=== PATIENT | female | born 1985 | race American Indian/Alaskan Native ===

== ENCOUNTER 2017-07-07 10:07 | Emergency (ER) | payer BC, OTHER ==
--- NOTE | 2017-07-07 10:43 | Emergency Department Report ---
Stated Complaint: CHEST PAIN/BODY PAIN/RT EAR PAIN Time Seen by Provider: 07/07/17 10:39 - HPI History of Present Illness: PT c/o body pain x 2 weeks PT reports chest pain and hearing throbbing in her ears PT states her symptoms worsened after she had SZ - ROS Review of Systems: + intermittent chest pain + recent URI - dysuria + fever on Friday - Exam Physical Exam: obese female, no acute resp distress gcs 15 MSE screening note: Focused history and physical exam performed. Due to findings the following was ordered: ekg, xr, labs ED Disposition for MSE Condition: Stable
[2017-07-07 11:05] LABS: Basophils % (Auto) 1.4 % (0.0-1.8); Eosinophils % (Auto) 3.5 % (0.0-4.3); Hematocrit 38.1 % (30.3-42.9); Hemoglobin 12.1 gm/dl (10.1-14.3); Mean Corpuscular HGB Conc 32 % (30-34); Mean Corpuscular Hemoglobin 26 pg (28-32); Mean Corpuscular Volume 83 fl (79-97); Platelet Count 249 K/mm3 (140-440); Red Blood Count 4.61 M/mm3 (3.65-5.03); Red Cell Distribution Width 15.5 % (13.2-15.2); White Blood Count 5.6 K/mm3 (4.5-11.0)
[2017-07-07 11:15] LABS: INR 0.98 (0.87-1.13); Partial Thromboplastin Time 30.4 Sec. (24.2-36.6)
[2017-07-07 11:23] LABS: Alanine Aminotransferase 13 units/L (7-56); Albumin 3.4 g/dL (3.9-5); Albumin/Globulin Ratio 0.9 %; Alkaline Phosphatase 82 units/L (35-129); Anion Gap 14 mmol/L; Blood Urea Nitrogen 9 mg/dL (7-17); Calcium 8.8 mg/dL (8.4-10.2); Carbon Dioxide 26 mmol/L (22-30); Chloride 100.3 mmol/L (98-107); Glucose 95 mg/dL (65-100); Potassium 4.2 mmol/L (3.6-5.0); Sodium 136 mmol/L (137-145); Total Protein 7.4 g/dL (6.3-8.2)
[2017-07-07 11:25] LABS: Bilirubin,Urine NEG (Negative); Blood,Urine NEG (Negative); Ketones,Urine NEG (Negative); Leukocyte Esterase,Urine NEG (Negative); Nitrite,Urine NEG (Negative); Protein,Urine <15 mg/dL mg/dL (Negative); Urobilinogen,Urine < 2.0 mg/dL (<2.0)
--- NOTE | 2017-07-07 12:17 | XRay Report ---
ROUTINE CHEST, TWO VIEWS: Chest pain. PA and lateral views demonstrate the heart and mediastinal contour to be of normal size and shape. The lungs are clear but hypoventilated and the soft tissues and bony structures are normal. No interval change compared to August 31, 2015. IMPRESSION: Normal study.
--- NOTE | 2017-07-07 12:18 | Emergency Department Report ---
HPI - General Chief Complaint: Pain General Time Seen by Provider: 07/07/17 10:39 - HPI HPI: Room 24 The patient is a 32-year-old female presented with a chief complaint of " feeling sick." The patient states for approximately 2 weeks she has had pain/ thump and in both ears chest congestion and rhinorrhea. Patient states she was found to be febrile 101F earlier in the week. Patient denies a cough Location: [see above] Duration: 2 weeks Quality: Congestion Severity: Moderate Modifying factors: [see above] Context: [see above] Mode of transportation: unknown ED Past Medical Hx - Past Medical History Hx Headaches / Migraines: Yes Hx Seizures: Yes (episode of Yao's paralysis) Additional medical history: OBESITY - Surgical History Past Surgical History?: No - Family History Family history: no significant - Social History Smoking Status: Never Smoker Substance Use Type: None (denies illicit drug use), Alcohol (occasional) - Medications Home Medications: Home Medications Medication Instructions Recorded Confirmed Last Taken Type carBAMazepine [TEGretol] 200 mg PO Q8HR 12/06/14 08/31/15 08/30/15 21:00 History levETIRAcetam [Keppra XR TAB] 500 mg PO BID 08/05/15 08/31/15 08/30/15 21:00 History Butalb/Acetamin/Caff 50-325-40 1 tab PO Q6HR PRN 08/31/15 08/31/15 Unknown History [Fioricet] Ibuprofen [Motrin] 600 mg PO Q6HR PRN #20 tablet 08/31/15 Unknown Rx Azithromycin [Zithromax Z-KEVIN] 0 mg PO DAILY #6 tab 07/07/17 Unknown Rx Butalb/Acetamin/Caff 50-325-40 1 tab PO Q8HR PRN #10 tablet 07/07/17 Unknown Rx [Fioricet] ED Review of Systems ROS: Stated complaint: CHEST PAIN/BODY PAIN/RT EAR PAIN Other details as noted in HPI Comment: All other systems reviewed and negative Constitutional: fever Eyes: denies: eye pain, eye discharge, vision change ENT: ear pain, congestion Respiratory: denies: cough, shortness of breath, wheezing Cardiovascular: denies: chest pain, palpitations Endocrine: no symptoms reported Gastrointestinal: denies: abdominal pain, nausea, diarrhea Genitourinary: denies: urgency, dysuria, discharge Musculoskeletal: denies: back pain, joint swelling, arthralgia Skin: denies: rash, lesions Neurological: denies: weakness, paresthesias Psychiatric: denies: anxiety, depression Hematological/Lymphatic: denies: easy bleeding, easy bruising Physical Exam - Physical Exam Vital Signs: Vital Signs 07/07/17 07/07/17 07/07/17 10:43 11:52 11:54 Temperature 98.6 F Pulse Rate 78 79 Respiratory 18 12 Rate Blood Pressure 127/76 116/71 O2 Sat by Pulse 100 97 98 Oximetry 07/07/17 12:00 Temperature Pulse Rate Respiratory 18 Rate Blood Pressure O2 Sat by Pulse 100 Oximetry Physical Exam: GENERAL: The patient is well-developed well-nourished female lying on stretcher not appearing to be in acute distress. [] HEENT: Normocephalic. Atraumatic. Extraocular motions are intact. Patient has moist mucous membranes. There is tenderness to percussion of the left maxillary sinus NECK: Supple. Trachea midline CHEST/LUNGS: Clear to auscultation. There is no respiratory distress noted. HEART/CARDIOVASCULAR: Regular. There is no tachycardia. There is no gallop rub or murmur. ABDOMEN: Abdomen is soft, nontender. Patient has normal bowel sounds. There is no abdominal distention. SKIN: There is no rash. There is no edema. There is no diaphoresis. NEURO: The patient is awake, alert, and oriented. The patient is cooperative. The patient has normal speech MUSCULOSKELETAL: There is no evidence of acute injury. ED Course Vital Signs 07/07/17 07/07/17 07/07/17 10:43 11:52 11:54 Temperature 98.6 F Pulse Rate 78 79 Respiratory 18 12 Rate Blood Pressure 127/76 116/71 O2 Sat by Pulse 100 97 98 Oximetry 07/07/17 12:00 Temperature Pulse Rate Respiratory 18 Rate Blood Pressure O2 Sat by Pulse 100 Oximetry ED Medical Decision Making - Lab Data Result diagrams: 07/07/17 10:48 07/07/17 10:48 Laboratory Tests 07/07/17 07/07/17 07/07/17 10:48 10:48 10:48 WBC 5.6 RBC 4.61 Hgb 12.1 Hct 38.1 MCV 83 MCH 26 L MCHC 32 RDW 15.5 H Plt Count 249 Lymph % (Auto) 24.7 Gray % (Auto) 10.4 H Eos % (Auto) 3.5 Baso % (Auto) 1.4 Lymph # 1.4 Gray # 0.6 Eos # 0.2 Baso # 0.1 Seg Neutrophils % 60.0 Seg Neutrophils # 3.3 PT 13.5 INR 0.98 APTT 30.4 Sodium 136 L Potassium 4.2 Chloride 100.3 Carbon Dioxide 26 Anion Gap 14 BUN 9 Creatinine 0.5 L Estimated GFR > 60 BUN/Creatinine Ratio 18.00 Glucose 95 Calcium 8.8 Total Bilirubin 0.30 AST 15 ALT 13 Alkaline Phosphatase 82 Total Creatine Kinase Troponin T < 0.010 Total Protein 7.4 Albumin 3.4 L Albumin/Globulin Ratio 0.9 HCG, Qual Urine Color Urine Turbidity Urine pH Ur Specific [place] Urine Protein Urine Glucose (UA) Urine Ketones Urine Blood Urine Nitrite Urine Bilirubin Urine Urobilinogen Ur Leukocyte Esterase Urine WBC (Auto) Urine RBC (Auto) U Epithel Cells (Auto) 07/07/17 07/07/17 07/07/17 10:48 10:48 11:01 WBC RBC Hgb Hct MCV MCH MCHC RDW Plt Count Lymph % (Auto) Gray % (Auto) Eos % (Auto) Baso % (Auto) Lymph # Gray # Eos # Baso # Seg Neutrophils % Seg Neutrophils # PT INR APTT Sodium Potassium Chloride Carbon Dioxide Anion Gap BUN Creatinine Estimated GFR BUN/Creatinine Ratio Glucose Calcium Total Bilirubin AST ALT Alkaline Phosphatase Total Creatine Kinase 70 Troponin T Total Protein Albumin Albumin/Globulin Ratio HCG, Qual Negative Urine Color Straw Urine Turbidity Clear Urine pH 7.0 Ur Specific [place] 1.011 Urine Protein <15 mg/dl Urine Glucose (UA) Neg Urine Ketones Neg Urine Blood Neg Urine Nitrite Neg Urine Bilirubin Neg Urine Urobilinogen < 2.0 Ur Leukocyte Esterase Neg Urine WBC (Auto) 1.0 Urine RBC (Auto) 1.0 U Epithel Cells (Auto) 5.0 Influenza negative - EKG Data -: EKG Interpreted by Me EKG shows normal: sinus rhythm Rate: normal - EKG Data When compared to previous EKG there are: previous EKG unavailable Interpretation: nonspecific ST-T wave carlos (T-wave inversion in lead 3) - Radiology Data Radiology results: image reviewed (chest x-ray) interpreted by me: Chest x-ray-no focal infiltrates, no pneumothorax - Differential Diagnosis acute bronchitis, sinusitis, pneumonia, influenza Critical care attestation.: If time is entered above; I have spent that time in minutes in the direct care of this critically ill patient, excluding procedure time. ED Disposition Clinical Impression: Acute sinusitis Disposition: DC-01 TO HOME OR SELFCARE Is pt being admited?: No Does the pt Need Aspirin: No Condition: Stable Instructions: Sinusitis (ED) Additional Instructions: Return to the emergency department immediately should you develop worsening symptoms, fever, inability to tolerate food or liquid or any other concerns. Prescriptions: Azithromycin [Zithromax Z-KEVIN] 0 mg PO DAILY #6 tab Butalb/Acetamin/Caff 50-325-40 [Fioricet] 1 tab PO Q8HR PRN #10 tablet PRN Reason: Headache Referrals: PRIMARY CARE, [Primary Care Provider] - 3-5 Days Time of Disposition: 13:00
[2017-07-07 13:11] VITALS: BP 126/82
== END 2017-07-07 13:11 | disposition home or self-care (01) ==
LOC: ED 10:07
DX: J01.90 Acute sinusitis, unspecified (principal); E66.9 Obesity, unspecified
CPT/HCPCS: 36415; 71020; 80053; 81001; 82550; 84484; 84703; 85025; 85610; 85730; 87400; 93005; 93010; 99284

== ENCOUNTER 2017-07-08 04:00 | Emergency (ER) | payer BC ==
[2017-07-08] MEDS ORDERED: TORADOL IM ONE (09:49)
--- NOTE | 2017-07-08 09:53 | Emergency Department Report ---
ED Chest Pain HPI - General Chief Complaint: Dizziness Stated Complaint: BLURRED VISION/ABD PAIN/NAVA/BODY ACHES Time Seen by Provider: 07/08/17 09:11 Source: patient Mode of arrival: Ambulatory Limitations: No Limitations - History of Present Illness Initial Comments: 32-year-old female here with complaint of chest pain. Patient was evaluated last night for similar symptoms and discharged as a bronchitis. Today she continues to complain of chest pain and slight lightheadedness. She appears otherwise well. She has no shortness of breath no fevers no chills but does complain of a slight cough. MD Complaint: chest pain -: Gradual (2 days ago) Onset: during rest Pain Radiation: none Quality: tightness, heaviness Consistency: constant Improves With: nothing Worsens With: nothing re: denies: nausea, vomting, diaphoresis, dyspnea, sense of impending doom Other Symptoms: cough - Related Data Home Medications Medication Instructions Recorded Confirmed Last Taken carBAMazepine [TEGretol] 200 mg PO Q8HR 12/06/14 07/08/17 08/30/15 21:00 levETIRAcetam [Keppra XR TAB] 500 mg PO BID 08/05/15 07/08/17 08/30/15 21:00 Previous Rx's Medication Instructions Recorded Last Taken Type Butalb/Acetamin/Caff 50-325-40 1 tab PO Q8HR PRN #10 tablet 07/07/17 Unknown Rx [Fioricet] Ibuprofen [Motrin 600 MG tab] 600 mg PO Q8H PRN #30 tablet 07/08/17 Unknown Rx Allergies Allergy/AdvReac Type Severity Reaction Status Date / Time amoxicillin [Amoxicillin] Allergy Swelling Verified 07/07/17 10:41 Heart Score - HEART Score History: Moderately suspicious EKG: Normal Age: < 45 Risk factors: 1-2 risk factors Troponin: < normal limit HEART Score: 2 ED Review of Systems ROS: Stated complaint: BLURRED VISION/ABD PAIN/NAVA/BODY ACHES Other details as noted in HPI Comment: All other systems reviewed and negative Constitutional: denies: chills, fever Eyes: denies: eye pain, eye discharge, vision change ENT: denies: ear pain, throat pain Respiratory: cough. denies: shortness of breath, wheezing Cardiovascular: chest pain. denies: palpitations Endocrine: no symptoms reported Gastrointestinal: denies: abdominal pain, nausea, diarrhea Genitourinary: denies: urgency, dysuria, discharge Musculoskeletal: denies: back pain, joint swelling, arthralgia Skin: denies: rash, lesions Neurological: denies: headache, weakness, paresthesias Psychiatric: denies: anxiety, depression Hematological/Lymphatic: denies: easy bleeding, easy bruising ED Past Medical Hx - Past Medical History Previous Medical History?: Yes Hx CVA: Yes (patient states that it was not a CVA but seizures that caused her symptoms ) Hx Headaches / Migraines: Yes Hx Seizures: Yes (episode of Yao's paralysis) Additional medical history: OBESITY - Surgical History Past Surgical History?: No - Family History Family history: no significant - Social History Smoking Status: Never Smoker Substance Use Type: None - Medications Home Medications: Home Medications Medication Instructions Recorded Confirmed Last Taken Type carBAMazepine [TEGretol] 200 mg PO Q8HR 12/06/14 07/08/17 08/30/15 21:00 History levETIRAcetam [Keppra XR TAB] 500 mg PO BID 08/05/15 07/08/17 08/30/15 21:00 History Butalb/Acetamin/Caff 50-325-40 1 tab PO Q8HR PRN #10 tablet 07/07/17 07/08/17 Unknown Rx [Fioricet] Ibuprofen [Motrin 600 MG tab] 600 mg PO Q8H PRN #30 tablet 07/08/17 Unknown Rx ED Physical Exam - General Limitations: No Limitations General appearance: alert, in no apparent distress, obese - Head Head exam: Present: atraumatic, normocephalic - Eye Eye exam: Present: normal appearance. Absent: scleral icterus, conjunctival injection, nystagmus - ENT ENT exam: Present: mucous membranes moist - Neck Neck exam: Present: normal inspection - Respiratory Respiratory exam: Present: normal lung sounds bilaterally. Absent: respiratory distress - Cardiovascular Cardiovascular Exam: Present: regular rate, normal rhythm, normal heart sounds. Absent: systolic murmur, diastolic murmur, rubs, gallop - GI/Abdominal GI/Abdominal exam: Present: soft, normal bowel sounds. Absent: distended, tenderness, guarding - Extremities Exam Extremities exam: Present: normal inspection - Back Exam Back exam: Present: normal inspection - Neurological Exam Neurological exam: Present: alert, oriented X3 - Psychiatric Psychiatric exam: Present: normal affect, normal mood - Skin Skin exam: Present: warm, dry, intact, normal color. Absent: rash ED Course Vital Signs 07/08/17 07/08/17 07/08/17 04:15 09:17 11:16 Temperature 97.7 F 97.9 F Pulse Rate 81 88 Respiratory 17 20 Rate Blood Pressure 145/82 Blood Pressure 117/59 [Left] O2 Sat by Pulse 98 100 Oximetry JAIDEN score - Jaiden Score Age > 65: (0) No Aspirin use within the Past 7 Days: (0) No 3 or more CAD Risk Factors: (0) No 2 or more Angina events in past 24 hrs: (0) No Known CAD with more than 50% Stenosis: (0) No Elevated Cardiac Markers: (0) No ST Deviation Greater than 0.5mm: (0) No JAIDEN Score: 0 ED Medical Decision Making - Lab Data Result diagrams: 07/08/17 10:31 07/08/17 10:31 - EKG Data -: EKG Interpreted by Me - EKG Data When compared to previous EKG there are: no significant change 07/08/17 10:42 Sinus rate of 60 normal axis normal intervals no ST-T wave changes. - Medical Decision Making 32-year-old female here with likely low risk chest pain. Patient was seen yesterday and had a normal EKG normal chest x-ray and normal labs. I plan to repeat EKG and troponin here and if negative plan discharge home with NSAIDs. Portions of this chart were dictated with dictation software. There may be dictation errors contained within this note. Critical care attestation.: If time is entered above; I have spent that time in minutes in the direct care of this critically ill patient, excluding procedure time. ED Disposition Clinical Impression: Chest pain Disposition: DC-01 TO HOME OR SELFCARE Is pt being admited?: No Condition: Stable Instructions: Chest Pain (ED) Prescriptions: Ibuprofen [Motrin 600 MG tab] 600 mg PO Q8H PRN #30 tablet PRN Reason: Pain Referrals: PRIMARY CARE, [Primary Care Provider] - 3-5 Days
[2017-07-08 10:55] LABS: Basophils % (Auto) 0.9 % (0.0-1.8); Eosinophils % (Auto) 3.4 % (0.0-4.3); Hematocrit 36.7 % (30.3-42.9); Hemoglobin 11.8 gm/dl (10.1-14.3); Mean Corpuscular HGB Conc 32 % (30-34); Mean Corpuscular Hemoglobin 26 pg (28-32); Mean Corpuscular Volume 82 fl (79-97); Platelet Count 234 K/mm3 (140-440); Red Blood Count 4.46 M/mm3 (3.65-5.03); Red Cell Distribution Width 15.3 % (13.2-15.2); White Blood Count 5.2 K/mm3 (4.5-11.0)
[2017-07-08 11:07] LABS: Anion Gap 20 mmol/L; BUN/Creatinine Ratio 18.33; Blood Urea Nitrogen 11 mg/dL (7-17); Calcium 8.6 mg/dL (8.4-10.2); Carbon Dioxide 22 mmol/L (22-30); Chloride 101.1 mmol/L (98-107); Glucose 94 mg/dL (65-100); Potassium 4.1 mmol/L (3.6-5.0); Sodium 139 mmol/L (137-145)
[2017-07-08] MEDS ORDERED: KEPPRA PO ONE ×2 (11:54→11:55)
[2017-07-08 12:12] VITALS: BP 113/64
== END 2017-07-08 12:11 | disposition home or self-care (01) ==
LOC: ED 04:00
DX: R07.9 Chest pain, unspecified (principal); G43.909 Migraine, unspecified, not intractable, without status migrainosus; E66.9 Obesity, unspecified; Z86.73 Personal history of transient ischemic attack (TIA), and cerebral infarction without residual deficits; Z88.1 Allergy status to other antibiotic agents
CPT/HCPCS: 36415; 80048; 84484; 85025; 93005; 93010; 96372; 99284; J1885

== ENCOUNTER 2017-07-18 20:24 | Emergency (ER) | payer BC ==
[2017-07-18 21:19] LABS: Basophils % (Auto) 1.3 % (0.0-1.8); Eosinophils % (Auto) 1.4 % (0.0-4.3); Hematocrit 35.3 % (30.3-42.9); Hemoglobin 11.7 gm/dl (10.1-14.3); Mean Corpuscular HGB Conc 33 % (30-34); Mean Corpuscular Hemoglobin 27 pg (28-32); Mean Corpuscular Volume 81 fl (79-97); Platelet Count 264 K/mm3 (140-440); Red Blood Count 4.39 M/mm3 (3.65-5.03); White Blood Count 6.2 K/mm3 (4.5-11.0)
[2017-07-18 21:41] LABS: Anion Gap 15 mmol/L; BUN/Creatinine Ratio 11.25; Blood Urea Nitrogen 9 mg/dL (7-17); Calcium 8.8 mg/dL (8.4-10.2); Carbon Dioxide 26 mmol/L (22-30); Glucose 84 mg/dL (65-100); Potassium 3.6 mmol/L (3.6-5.0); Sodium 137 mmol/L (137-145)
[2017-07-19] MEDS ORDERED: ZOFRAN IV ONE (01:15)
[2017-07-19] MEDS ORDERED: KEPPRA 1,000 MG in D5W 100 ML IV ONE (01:15)
[2017-07-19] MEDS ORDERED: KEPPRA 1,000 MG/NS 0.75% 100ML 1,000 MG/100 ML BAG IV ONE ×2 (01:16→01:20)
[2017-07-19] MEDS ORDERED: ZOFRAN ONE (01:16)
[2017-07-19] MEDS ORDERED: ATIVAN ONE ×2 (04:23→05:10)
[2017-07-19] MEDS ORDERED: ATIVAN IV ONE (05:10)
[2017-07-19 05:12] VITALS: BP 117/76
--- NOTE | 2017-07-19 06:48 | Emergency Department Report ---
ED General Adult HPI - General Chief complaint: Seizure Stated complaint: SEIZURES Time Seen by Provider: 07/19/17 06:06 Source: patient Mode of arrival: Ambulatory Limitations: No Limitations - History of Present Illness Initial comments: Patient is a 32-year-old female past medical history of seizure disorder who presents with status post 2 seizures. Patient states that she was at her home earlier today when she to unwitnessed tonic-clonic seizures. She states that she gets seizures frequently. She is on Keppra and Tegretol. She states that she is having some knee pain or any pain as a 7 out of 10 moving it makes it worse nothing makes it better is an achy type of pain that does not radiate. Patient states that she is compliant with her medications and she follows up with her neurologist. Severity scale (0 -10): 6 - Related Data Home Medications Medication Instructions Recorded Confirmed Last Taken carBAMazepine [TEGretol] 200 mg PO Q8HR 12/06/14 07/08/17 08/30/15 21:00 levETIRAcetam [Keppra XR TAB] 500 mg PO BID 08/05/15 07/08/17 08/30/15 21:00 Previous Rx's Medication Instructions Recorded Last Taken Type Butalb/Acetamin/Caff 50-325-40 1 tab PO Q8HR PRN #10 tablet 07/07/17 Unknown Rx [Fioricet] Ibuprofen [Motrin 600 MG tab] 600 mg PO Q8H PRN #30 tablet 07/08/17 Unknown Rx Allergies Allergy/AdvReac Type Severity Reaction Status Date / Time amoxicillin [Amoxicillin] Allergy Swelling Verified 07/07/17 10:41 ED Review of Systems ROS: Stated complaint: SEIZURES Other details as noted in HPI Constitutional: denies: chills, fever Eyes: denies: eye pain, eye discharge, vision change ENT: denies: ear pain, throat pain Respiratory: denies: cough, shortness of breath, wheezing Cardiovascular: denies: chest pain, palpitations Endocrine: no symptoms reported Gastrointestinal: denies: abdominal pain, nausea, diarrhea Genitourinary: denies: urgency, dysuria, discharge Musculoskeletal: other (knee pain). denies: back pain, joint swelling, arthralgia Skin: denies: rash, lesions Neurological: other (seizures). denies: headache, weakness, paresthesias Psychiatric: denies: anxiety, depression Hematological/Lymphatic: denies: easy bleeding, easy bruising ED Past Medical Hx - Past Medical History Previous Medical History?: Yes Hx CVA: Yes (patient states that it was not a CVA but seizures that caused her symptoms ) Hx Headaches / Migraines: Yes Hx Seizures: Yes (episode of Yao's paralysis) Additional medical history: OBESITY - Surgical History Past Surgical History?: No - Social History Smoking Status: Never Smoker Substance Use Type: Alcohol - Medications Home Medications: Home Medications Medication Instructions Recorded Confirmed Last Taken Type carBAMazepine [TEGretol] 200 mg PO Q8HR 12/06/14 07/08/17 08/30/15 21:00 History levETIRAcetam [Keppra XR TAB] 500 mg PO BID 08/05/15 07/08/17 08/30/15 21:00 History Butalb/Acetamin/Caff 50-325-40 1 tab PO Q8HR PRN #10 tablet 07/07/17 07/08/17 Unknown Rx [Fioricet] Ibuprofen [Motrin 600 MG tab] 600 mg PO Q8H PRN #30 tablet 07/08/17 Unknown Rx ED Physical Exam - General Limitations: No Limitations General appearance: alert, in no apparent distress - Head Head exam: Present: atraumatic, normocephalic - Eye Eye exam: Present: normal appearance - ENT ENT exam: Present: mucous membranes moist - Neck Neck exam: Present: normal inspection - Respiratory Respiratory exam: Present: normal lung sounds bilaterally. Absent: respiratory distress - Cardiovascular Cardiovascular Exam: Present: regular rate, normal rhythm. Absent: systolic murmur, diastolic murmur, rubs, gallop - GI/Abdominal GI/Abdominal exam: Present: soft, normal bowel sounds - Extremities Exam Extremities exam: Present: other (right knee tenderness) - Back Exam Back exam: Present: normal inspection - Neurological Exam Neurological exam: Present: alert, oriented X3 - Psychiatric Psychiatric exam: Present: normal affect, normal mood - Skin Skin exam: Present: warm, dry, intact, normal color. Absent: rash ED Course Vital Signs 07/18/17 07/19/17 07/19/17 20:42 00:49 05:10 Temperature 97.6 F 98.5 F 98.5 F Pulse Rate 75 67 Respiratory 20 18 Rate Blood Pressure 146/85 Blood Pressure 117/76 [Right] O2 Sat by Pulse 98 99 Oximetry - Reevaluation(s) Reevaluation #1: 07/19/17 06:57 Vision is feeling better after receiving IV Keppra I will send the patient home. ED Medical Decision Making - Lab Data Result diagrams: 07/18/17 21:09 07/18/17 21:09 Lab Results 07/18/17 07/18/17 07/18/17 Range/Units 21:09 21:09 21:09 WBC 6.2 (4.5-11.0) K/mm3 RBC 4.39 (3.65-5.03) M/mm3 Hgb 11.7 (10.1-14.3) gm/dl Hct 35.3 (30.3-42.9) % MCV 81 (79-97) fl MCH 27 L (28-32) pg MCHC 33 (30-34) % RDW 15.0 (13.2-15.2) % Plt Count 264 (140-440) K/mm3 Lymph % (Auto) 32.5 (13.4-35.0) % [place] % (Auto) 11.8 H (0.0-7.3) % Eos % (Auto) 1.4 (0.0-4.3) % Baso % (Auto) 1.3 (0.0-1.8) % Lymph # 2.0 (1.2-5.4) K/mm3 [place] # 0.7 (0.0-0.8) K/mm3 Eos # 0.1 (0.0-0.4) K/mm3 Baso # 0.1 (0.0-0.1) K/mm3 Seg Neutrophils % 53.0 (40.0-70.0) % Seg Neutrophils # 3.3 (1.8-7.7) K/mm3 Sodium 137 (137-145) mmol/L Potassium 3.6 (3.6-5.0) mmol/L Chloride 100.0 (98-107) mmol/L Carbon Dioxide 26 (22-30) mmol/L Anion Gap 15 mmol/L BUN 9 (7-17) mg/dL Creatinine 0.8 (0.7-1.2) mg/dL Estimated GFR > 60 ml/min BUN/Creatinine Ratio 11.25 % Glucose 84 (65-100) mg/dL Calcium 8.8 (8.4-10.2) mg/dL HCG, Qual Negative (Negative) - EKG Data -: EKG Interpreted by Me - EKG Data 07/19/17 07:01 EKG shows normal sinus rhythm normal axis septal infarct age indeterminate no change compared to prior EKG. - Radiology Data Knee x-ray: Shows no acute osseous injury - Medical Decision Making Chief medical diagnosis: Epilepsy Differential medical diagnosis: Metabolic abnormality, infectious, UTI, knee fracture CBC, CMP, UA, and the x-ray and I will give patient IV Keppra medication Patient most likely had a breakthrough seizure she is alert and oriented she has no knee fracture also patient home with Tylenol and ibuprofen Critical care attestation.: If time is entered above; I have spent that time in minutes in the direct care of this critically ill patient, excluding procedure time. ED Disposition Clinical Impression: Seizures Right knee pain Qualifiers: Chronicity: acute Qualified Code(s): M25.561 - Pain in right knee Disposition: DC-01 TO HOME OR SELFCARE Is pt being admited?: No Does the pt Need Aspirin: No Condition: Stable Instructions: Epilepsy (ED), Arthralgia (ED) Referrals: PRIMARY CAREMD [Primary Care Provider] - 3-5 Days VINCENZO SÁNCHEZ MD [Staff Physician] - 3-5 Days
[2017-07-19] MEDS ORDERED: TYLENOL PO ONE (06:58)
[2017-07-19] MEDS ORDERED: MOTRIN PO ONE (06:59)
--- NOTE | 2017-07-19 10:17 | XRay Report ---
XRAY RIGHT KNEE 2 VIEWS: 07/19/17 CLINICAL: Fall. Pain and swelling. FINDINGS: No fracture or dislocation. The joint spaces are normal. Normal soft tissues. No joint effusion. IMPRESSION: Normal.
== END 2017-07-19 08:05 | disposition home or self-care (01) ==
LOC: ED 20:24
DX: G40.909 Epilepsy, unspecified, not intractable, without status epilepticus (principal); M25.561 Pain in right knee; G43.909 Migraine, unspecified, not intractable, without status migrainosus; E66.9 Obesity, unspecified; Z86.73 Personal history of transient ischemic attack (TIA), and cerebral infarction without residual deficits; Z88.1 Allergy status to other antibiotic agents
CPT/HCPCS: 36415; 73560; 80048; 84703; 85025; 93005; 93010; 96365; 96375; 99285; J1953; J2060; J2405

== ENCOUNTER 2017-11-10 17:51 | Emergency (ER) | payer BC | END 2017-11-11 03:23 | disposition left against medical advice (07) | LOC: ED 17:51 | DX: Z53.21 Procedure and treatment not carried out due to patient leaving prior to being seen by health care provider (principal) ==

== ENCOUNTER 2018-02-28 20:03 | Emergency (ER) | payer BC, OTHER ==
[2018-02-28 20:45] VITALS: BP 108/60
[2018-02-28 21:24] LABS: Hemoglobin 11.6 gm/dl (10.1-14.3); Mean Corpuscular HGB Conc 33 % (30-34); Mean Corpuscular Hemoglobin 26 pg (28-32); Mean Corpuscular Volume 79 fl (79-97); Platelet Count 279 K/mm3 (140-440); Red Blood Count 4.42 M/mm3 (3.65-5.03); Red Cell Distribution Width 16.1 % (13.2-15.2)
[2018-02-28 21:58] LABS: BUN/Creatinine Ratio 13; Calcium 8.3 mg/dL (8.4-10.2)
[2018-02-28 21:59] LABS: Blood Urea Nitrogen 9 mg/dL (7-17)
[2018-02-28 22:00] LABS: Hemolysis Index 45
[2018-03-01] MEDS ORDERED: KEPPRA PO ONE (02:20)
--- NOTE | 2018-03-01 02:26 | Emergency Department Report ---
ED Seizure HPI - General Chief Complaint: Seizure Stated Complaint: SEIZURE,WEAKNESS Time Seen by Provider: 03/01/18 02:05 Source: patient, EMS, old records reviewed Mode of arrival: Stretcher Limitations: Other - History of Present Illness Initial Comments: 32 yo female of the past medical history seizures, obesity, and migraines presents to the hospital complains of seizure witnessed by a neighbor. Patient was feeling drowsy and dizzy upon arrival but feeling better currently. Oriented 3. Patient complains of bilateral leg weakness after her seizure left greater than right. History of weakness after seizures in the past. Patient also complains of headache which is chronic secondary to migraines. Patient's been compliant with her medication as taken 3 doses of her Tegretol 200 mg and one dose of her Keppra 500mg today. She also complains of generalized muscle aches. Last seizure was several months ago. Patient does have a new neurologist with appointment scheduled in April - Related Data Home Medications Medication Instructions Recorded Confirmed Last Taken carBAMazepine [TEGretol] 200 mg PO Q8HR 12/06/14 07/08/17 08/30/15 21:00 levETIRAcetam [Keppra XR TAB] 500 mg PO BID 08/05/15 07/08/17 08/30/15 21:00 Previous Rx's Medication Instructions Recorded Last Taken Type Butalb/Acetamin/Caff 50-325-40 1 tab PO Q8HR PRN #10 tablet 07/07/17 Unknown Rx [Fioricet] Ibuprofen [Motrin 600 MG tab] 600 mg PO Q8H PRN #30 tablet 07/08/17 Unknown Rx Aspirin [Aspirin EC] 81 mg PO DAILY #30 tablet. 08/29/17 Unknown Rx Allergies Allergy/AdvReac Type Severity Reaction Status Date / Time amoxicillin [Amoxicillin] Allergy Swelling Verified 07/07/17 10:41 ED Review of Systems ROS: Stated complaint: SEIZURE,WEAKNESS Other details as noted in HPI Comment: All other systems reviewed and negative ED Past Medical Hx - Past Medical History Previous Medical History?: Yes Hx CVA: Yes (patient states that it was not a CVA but seizures that caused her symptoms ) Hx Headaches / Migraines: Yes Hx Seizures: Yes (episode of Yao's paralysis) Additional medical history: OBESITY - Surgical History Past Surgical History?: No - Social History Smoking Status: Never Smoker - Medications Home Medications: Home Medications Medication Instructions Recorded Confirmed Last Taken Type carBAMazepine [TEGretol] 200 mg PO Q8HR 12/06/14 07/08/17 08/30/15 21:00 History levETIRAcetam [Keppra XR TAB] 500 mg PO BID 08/05/15 07/08/17 08/30/15 21:00 History Butalb/Acetamin/Caff 50-325-40 1 tab PO Q8HR PRN #10 tablet 07/07/17 07/08/17 Unknown Rx [Fioricet] Ibuprofen [Motrin 600 MG tab] 600 mg PO Q8H PRN #30 tablet 07/08/17 Unknown Rx Aspirin [Aspirin EC] 81 mg PO DAILY #30 tablet. 08/29/17 Unknown Rx ED Physical Exam - General Limitations: Other - Other Other exam information: General: No limitations, patient is alert in no acute distress Head exam: Atraumatic, normocephalic Eyes exam: Normal appearance, pupils equal reactive to light, extraocular movements intact ENT: Moist mucous membrane, normal oropharynx Neck exam: Normal inspection, full range of motion, no meningismus nontender Respiratory exam: Clear to auscultation bilateral, no wheezes, rales, crackles Cardiovascular: Normal rate and rhythm, normal heart sounds Abdomen: Soft, nondistended, and nontender, with normal bowel sounds, no rebound, or guarding Extremity: Full range of motion normal inspection no deformity Back: Normal Inspection, full range of motion, no tenderness Neurologic: Alert, oriented x3, cranial nerves intact, 5/5 upper extremity strength. Bilateral lower extremity weakness 4/5 left slightly weaker than right. Sensation intact Psychiatric: normal affect, normal mood Skin: Warm, dry, intact ED Course Vital Signs 02/28/18 20:37 Temperature 98.5 F Pulse Rate 79 Respiratory 20 Rate Blood Pressure 108/60 O2 Sat by Pulse 96 Oximetry - Reevaluation(s) Reevaluation #1: 03/01/18 02:24 Keppra 1 g by mouth ordered ED Medical Decision Making - Lab Data Result diagrams: 02/28/18 21:04 02/28/18 21:04 Lab Results 02/28/18 02/28/18 02/28/18 Range/Units 21:04 21:04 21:04 WBC 7.0 (4.5-11.0) K/mm3 RBC 4.42 (3.65-5.03) M/mm3 Hgb 11.6 (10.1-14.3) gm/dl Hct 35.0 (30.3-42.9) % MCV 79 (79-97) fl MCH 26 L (28-32) pg MCHC 33 (30-34) % RDW 16.1 H (13.2-15.2) % Plt Count 279 (140-440) K/mm3 Sodium 139 (137-145) mmol/L Potassium 4.2 (3.6-5.0) mmol/L Chloride 102.7 (98-107) mmol/L Carbon Dioxide 22 (22-30) mmol/L Anion Gap 19 mmol/L BUN 9 (7-17) mg/dL Creatinine 0.7 (0.7-1.2) mg/dL Estimated GFR > 60 ml/min BUN/Creatinine Ratio 13 % Glucose 89 (65-100) mg/dL Calcium 8.3 L (8.4-10.2) mg/dL HCG, Qual Negative (Negative) - EKG Data -: EKG Interpreted by Me EKG shows normal: sinus rhythm, axis (7), QRS complexes (92), ST-T waves (no stemi/t inv) Rate: normal (70) - Medical Decision Making Patient offered CAT scan Head but declines. Patient does not want IV or additional treatment at this time and wants to go home. She is agreeable to receive 1 g of by mouth Keppra prior to discharge. I informed her that I cannot rule out stroke or hemorrhage without CAT scan. Patient states she has had similar weakness after seizures in the past although this one slightly worse than normal. She prefers to follow-up with her doctor. - Differential Diagnosis seizure, Yao's paralysis, CVA, ICH Critical Care Time: No Critical care attestation.: If time is entered above; I have spent that time in minutes in the direct care of this critically ill patient, excluding procedure time. ED Disposition Clinical Impression: Seizure, Weakness of both lower limbs Disposition: DC-01 TO HOME OR SELFCARE Is pt being admited?: No Does the pt Need Aspirin: No Condition: Stable Instructions: Weakness (ED), Recurrent Seizures Adult (ED) Additional Instructions: Continue medication as prescribed. Follow-up with the neurologist and primary care doctor. Return if symptoms worsen as indicated by your discharge instructions Referrals: MARIALUISA MAARO MD [Primary Care Provider] - 3-5 Days Time of Disposition: 02:27
== END 2018-03-01 02:32 | disposition home or self-care (01) ==
LOC: ED 20:03
DX: R56.9 Unspecified convulsions (principal); R53.1 Weakness; G43.909 Migraine, unspecified, not intractable, without status migrainosus; Z86.73 Personal history of transient ischemic attack (TIA), and cerebral infarction without residual deficits; Z88.1 Allergy status to other antibiotic agents
CPT/HCPCS: 36415; 80048; 84703; 85027; 93005; 93010; 99284

== ENCOUNTER 2018-07-25 22:31 | Emergency (ER) | payer OTHER ==
[2018-07-25 23:48] LABS: Basophils % (Auto) 0.3 % (0.0-1.8); Eosinophils # (Auto) 0.2 K/mm3 (0.0-0.4); Eosinophils % (Auto) 2.3 % (0.0-4.3); Hematocrit 32.7 % (30.3-42.9); Hemoglobin 11.1 gm/dl (10.1-14.3); Lymphocytes # (Auto) 2.3 K/mm3 (1.2-5.4); Mean Corpuscular HGB Conc 34 % (30-34); Mean Corpuscular Hemoglobin 26 pg (28-32); Mean Corpuscular Volume 77 fl (79-97); Monocytes # (Auto) 0.7 K/mm3 (0.0-0.8); Monocytes % (Auto) 9.9 % (0.0-7.3); Platelet Count 313 K/mm3 (140-440); Red Blood Count 4.25 M/mm3 (3.65-5.03); Red Cell Distribution Width 16.3 % (13.2-15.2)
[2018-07-26 00:08] LABS: Alanine Aminotransferase 12 units/L (7-56); Albumin 3.6 g/dL (3.9-5); BUN/Creatinine Ratio 14; Blood Urea Nitrogen 10 mg/dL (7-17); Calcium 8.4 mg/dL (8.4-10.2); Hemolysis Index 2
[2018-07-26] MEDS ORDERED: KEPPRA 1,000 MG in NACL 0.9% 100 ML IV STA (03:14)
--- NOTE | 2018-07-26 03:15 | Emergency Department Report ---
ED General Adult HPI - General Chief complaint: Seizure Stated complaint: BODY ACHES Time Seen by Provider: 07/26/18 02:46 Source: patient, RN notes reviewed, old records reviewed Mode of arrival: Ambulatory Limitations: No Limitations - History of Present Illness Initial comments: Primary care physician: Jonh cavanaugh Past medical history: Seizure disorder, obesity, migraines, taking Tegretol, 200 mg 3 times daily, Keppra, 500 mg, 3 times daily. Patient presents to the ER today with complaint of breakthrough seizure. She reports one seizure yesterday at 2:00 PM and a subsequent seizure at 8:00 PM. She reports feeling like she is in her usual state of health with the exception of feeling jittery. She endorses compliance with her medications, denies dietary indiscretions, denies drug consumption, and denies irritative and obstructive urinary symptoms. She does endorse some muscular discomfort after her convulsive event. She denies sudden severe thunderclap headache, chest pain, abdominal pain, extremity weakness, numbness, unsteady gait. -: Sudden Radiation: non-radiation Severity scale (0 -10): 0 Quality: aching Consistency: intermittent Improves with: rest Worsens with: movement Associated Symptoms: seizure. denies: confusion, cough, diaphoresis, fever/ chills, headaches, loss of appetite, malaise, nausea/vomiting, rash, shortness of breath, syncope, weakness - Related Data Home Medications Medication Instructions Recorded Confirmed Last Taken carBAMazepine [TEGretol] 200 mg PO Q8HR 12/06/14 07/26/18 08/30/15 21:00 levETIRAcetam [Keppra XR TAB] 500 mg PO TID 08/05/15 07/26/18 08/30/15 21:00 Ibuprofen [Motrin 600 MG tab] 800 mg PO Q8H PRN 07/26/18 07/26/18 Unknown Allergies Allergy/AdvReac Type Severity Reaction Status Date / Time amoxicillin [Amoxicillin] Allergy Swelling Verified 07/07/17 10:41 ED Review of Systems ROS: Stated complaint: BODY ACHES Other details as noted in HPI Comment: All other systems reviewed and negative Constitutional: malaise Musculoskeletal: myalgia Neurological: other (seizure) ED Past Medical Hx - Past Medical History Hx CVA: Yes (patient states that it was not a CVA but seizures that caused her symptoms ) Hx Headaches / Migraines: Yes Hx Seizures: Yes (episode of Yao's paralysis) Additional medical history: OBESITY - Surgical History Past Surgical History?: No - Social History Smoking Status: Never Smoker Substance Use Type: None - Medications Home Medications: Home Medications Medication Instructions Recorded Confirmed Last Taken Type carBAMazepine [TEGretol] 200 mg PO Q8HR 12/06/14 07/26/18 08/30/15 21:00 History levETIRAcetam [Keppra XR TAB] 500 mg PO TID 08/05/15 07/26/18 08/30/15 21:00 History Ibuprofen [Motrin 600 MG tab] 800 mg PO Q8H PRN 07/26/18 07/26/18 Unknown History ED Physical Exam - General Limitations: No Limitations General appearance: alert, in no apparent distress - Head Head exam: Present: atraumatic, normocephalic - Eye Eye exam: Present: normal appearance, EOMI, other (visual acuity intact to finger counting, color perception, reading at a close distance). Absent: nystagmus - ENT ENT exam: Present: normal exam, normal orophraynx, mucous membranes moist, normal external ear exam - Neck Neck exam: Present: normal inspection, full ROM. Absent: tenderness, meningismus - Respiratory Respiratory exam: Present: normal lung sounds bilaterally. Absent: respiratory distress - Cardiovascular Cardiovascular Exam: Present: regular rate, normal rhythm, normal heart sounds. Absent: bradycardia, tachycardia, irregular rhythm, systolic murmur, diastolic murmur, rubs, gallop - GI/Abdominal GI/Abdominal exam: Present: soft, normal bowel sounds. Absent: distended, tenderness, guarding, pulsatile mass - Extremities Exam Extremities exam: Present: normal inspection, full ROM, normal capillary refill , other (2+ pulses noted in the bilateral upper, lower extremities. Compartments soft. No long bony tenderness. The pelvis is stable.). Absent: tenderness, pedal edema, joint swelling, calf tenderness - Back Exam Back exam: Present: normal inspection, full ROM. Absent: tenderness, CVA tenderness (R), paraspinal tenderness, vertebral tenderness - Neurological Exam Neurological exam: Present: alert, oriented X3, CN II-XII intact, normal gait, other (Extraocular movements intact. Tongue midline. No facial droop. Facial sensation intact to light touch in the V1, V2, V3 distribution bilaterally. 5 and 5 strength in 4 extremities.. Sensation is intact to light touch in 4 extremities.). Absent: motor sensory deficit - Psychiatric Psychiatric exam: Present: normal affect, normal mood - Skin Skin exam: Present: warm, dry, intact, normal color. Absent: rash ED Course Vital Signs 07/25/18 07/26/18 07/26/18 22:50 02:50 02:53 Temperature 98.1 F 98.1 F Pulse Rate 79 60 Respiratory 18 20 20 Rate Blood Pressure 131/60 Blood Pressure 105/98 [Left] O2 Sat by Pulse 98 99 98 Oximetry ED Medical Decision Making - Lab Data Result diagrams: 07/25/18 23:26 07/25/18 23:26 Vital Signs 07/25/18 07/26/18 07/26/18 22:50 02:50 02:53 Temperature 98.1 F 98.1 F Pulse Rate 79 60 Respiratory 18 20 20 Rate Blood Pressure 131/60 Blood Pressure 105/98 [Left] O2 Sat by Pulse 98 99 98 Oximetry Lab Results 07/25/18 07/25/18 07/25/18 Range/Units 23:26 23:26 23:26 WBC 6.7 (4.5-11.0) K/mm3 RBC 4.25 (3.65-5.03) M/mm3 Hgb 11.1 (10.1-14.3) gm/dl Hct 32.7 (30.3-42.9) % MCV 77 L (79-97) fl MCH 26 L (28-32) pg MCHC 34 (30-34) % RDW 16.3 H (13.2-15.2) % Plt Count 313 (140-440) K/mm3 Lymph % (Auto) 34.0 (13.4-35.0) % [place] % (Auto) 9.9 H (0.0-7.3) % Eos % (Auto) 2.3 (0.0-4.3) % Baso % (Auto) 0.3 (0.0-1.8) % Lymph # 2.3 (1.2-5.4) K/mm3 [place] # 0.7 (0.0-0.8) K/mm3 Eos # 0.2 (0.0-0.4) K/mm3 Baso # 0.0 (0.0-0.1) K/mm3 Seg Neutrophils % 53.5 (40.0-70.0) % Seg Neutrophils # 3.6 (1.8-7.7) K/mm3 Sodium 136 L (137-145) mmol/L Potassium 3.8 (3.6-5.0) mmol/L Chloride 100.9 (98-107) mmol/L Carbon Dioxide 24 (22-30) mmol/L Anion Gap 15 mmol/L BUN 10 (7-17) mg/dL Creatinine 0.7 (0.7-1.2) mg/dL Estimated GFR > 60 ml/min BUN/Creatinine Ratio 14 % Glucose 87 (65-100) mg/dL Calcium 8.4 (8.4-10.2) mg/dL Total Bilirubin 0.20 (0.1-1.2) mg/dL AST 21 (5-40) units/L ALT 12 (7-56) units/L Alkaline Phosphatase 102 (35-129) units/L Total Protein 7.2 (6.3-8.2) g/dL Albumin 3.6 L (3.9-5) g/dL Albumin/Globulin Ratio 1.0 % HCG, Qual Negative (Negative) Carbamazepine (4-12) ug/mL 07/25/18 Range/Units 23:26 WBC (4.5-11.0) K/mm3 RBC (3.65-5.03) M/mm3 Hgb (10.1-14.3) gm/dl Hct (30.3-42.9) % MCV (79-97) fl MCH (28-32) pg MCHC (30-34) % RDW (13.2-15.2) % Plt Count (140-440) K/mm3 Lymph % (Auto) (13.4-35.0) % [place] % (Auto) (0.0-7.3) % Eos % (Auto) (0.0-4.3) % Baso % (Auto) (0.0-1.8) % Lymph # (1.2-5.4) K/mm3 [place] # (0.0-0.8) K/mm3 Eos # (0.0-0.4) K/mm3 Baso # (0.0-0.1) K/mm3 Seg Neutrophils % (40.0-70.0) % Seg Neutrophils # (1.8-7.7) K/mm3 Sodium (137-145) mmol/L Potassium (3.6-5.0) mmol/L Chloride (98-107) mmol/L Carbon Dioxide (22-30) mmol/L Anion Gap mmol/L BUN (7-17) mg/dL Creatinine (0.7-1.2) mg/dL Estimated GFR ml/min BUN/Creatinine Ratio % Glucose (65-100) mg/dL Calcium (8.4-10.2) mg/dL Total Bilirubin (0.1-1.2) mg/dL AST (5-40) units/L ALT (7-56) units/L Alkaline Phosphatase (35-129) units/L Total Protein (6.3-8.2) g/dL Albumin (3.9-5) g/dL Albumin/Globulin Ratio % HCG, Qual (Negative) Carbamazepine 2.0 L (4-12) ug/mL - Medical Decision Making Differential diagnosis, including but not limited to: Breakthrough seizure, medication noncompliance, muscular pain after seizure, subtherapeutic antiepileptic drug level Assessment and plan: 33-year-old female with complaint of breakthrough seizure. She has a GCS of 15, with an NIH score of 0. She walks with a steady gait. Her physical and neurologic examination are unremarkable and the patient has soft muscular compartments. She is treated with ketorolac, Keppra, and given an additional dose of Tegretol. Contacted [facility] and discussed with Dr. Langston their physician coordinator, and patient is given follow-up appointments on 07/27/2018, at 2:20 PM, with Dr. Olmstead, at the [facility]. Patient instructed to not drive or operate motor vehicles. Critical care attestation.: If time is entered above; I have spent that time in minutes in the direct care of this critically ill patient, excluding procedure time. ED Disposition Clinical Impression: Seizure Disposition: DC-01 TO HOME OR SELFCARE Is pt being admited?: No Does the pt Need Aspirin: No Condition: Good Instructions: Recurrent Seizures Adult (ED) Additional Instructions: Do not drive or operate motor vehicles for the next 6 months. Patient has a follow-up appointment with Dr. Olmstead, at the [facility], 07/27/2018, at 2:20 PM. Patient should increase Tegretol to 300 mg in the morning and at night, and continue 200 mg in the middle of the day. Patient should continue current Keppra dosing. Take Tylenol alternating with ibuprofen every 6 hours with food as needed for pain. Return to the ER right away with recurrent seizures, projectile vomiting, change in mental status, confusion, inability to tolerate liquid feeds, new, worsening or different symptoms. Referrals: MARIALUISA AMARO MD [Primary Care Provider] - 3-5 Days
[2018-07-26] MEDS ORDERED: KEPPRA PO ONE (03:58)
[2018-07-26] MEDS ORDERED: TORADOL IM ONE (03:59)
[2018-07-26] MEDS ORDERED: KEPPRA 1,000 MG/NS 0.75% 100ML 1,000 MG/100 ML BAG IV ONE (04:00)
[2018-07-26] MEDS: TORADOL IV ONE ×2 (04:07→04:31)
[2018-07-26 05:11] VITALS: BP 110/80
== END 2018-07-26 05:12 | disposition home or self-care (01) ==
LOC: ED 22:31
DX: G40.909 Epilepsy, unspecified, not intractable, without status epilepticus (principal); G43.909 Migraine, unspecified, not intractable, without status migrainosus; Z86.73 Personal history of transient ischemic attack (TIA), and cerebral infarction without residual deficits; Z88.1 Allergy status to other antibiotic agents
CPT/HCPCS: 36415; 80053; 80156; 84703; 85025; 96372; 99283; J1885; J1953

== ENCOUNTER 2018-11-30 05:28 | Emergency (ER) | payer OTHER ==
[2018-11-30 05:47] VITALS: BP 147/87
--- NOTE | 2018-11-30 06:23 | XRay Report ---
FINAL REPORT EXAM: XR CHEST ROUTINE 2V HISTORY: cough and congestion TECHNIQUE: PA and lateral chest radiographs PRIORS: None. FINDINGS: No mediastinal shift. Cardiac silhouette is not enlarged. No pneumothorax, effusion, or focal pulmon armida opacity. No acute skeletal finding. IMPRESSION: No focal pulmonary opacity.
--- NOTE | 2018-11-30 07:25 | Emergency Department Report ---
Minor Respiratory - HPI Chief Complaint: Upper Respiratory Infection Stated Complaint: FLU LIKE SX Time Seen by Provider: 11/30/18 06:48 Duration: 4 Days Severity: mild Minor Respiratory: Yes Rhinorrhea, Yes Able to Tolerate Fluids, Yes Cough, Yes Sick Contacts, No Sore Throat, No Ear Pain, No Hemoptysis, No Chest Pain, No Shortness of Breath, No Fever Other History: This is a 33-year-old female who presents with upper respiratory symptoms. 4 days. Patient reports cough increased yesterday with increased rhinorrhea. She reports myalgia, Gagnon, and congestion. Patient states she is currently taken [id number] cold and flu medication with minimal improvement of symptoms. She denies chest pain, shortness of breath, wheeze, and no abdominal pain. ED Review of Systems ROS: Stated complaint: FLU LIKE SX Other details as noted in HPI Constitutional: chills. denies: fever ENT: congestion. denies: ear pain, throat pain, dental pain, hearing loss, epistaxis Respiratory: cough. denies: shortness of breath, wheezing Cardiovascular: denies: chest pain, palpitations Gastrointestinal: denies: abdominal pain, nausea, diarrhea Musculoskeletal: myalgia. denies: back pain, joint swelling, arthralgia Neurological: denies: headache, weakness, paresthesias Psychiatric: denies: anxiety, depression ED Past Medical Hx - Past Medical History Hx CVA: Yes (patient states that it was not a CVA but seizures that caused her symptoms ) Hx Headaches / Migraines: Yes Hx Seizures: Yes (episode of Yao's paralysis) Additional medical history: OBESITY - Social History Smoking Status: Never Smoker Substance Use Type: None - Medications Home Medications: Home Medications Medication Instructions Recorded Confirmed Last Taken Type carBAMazepine [TEGretol] 200 mg PO Q8HR 12/06/14 07/26/18 08/30/15 21:00 History levETIRAcetam [Keppra XR TAB] 500 mg PO TID 08/05/15 07/26/18 08/30/15 21:00 History Ibuprofen [Motrin 600 MG tab] 800 mg PO Q8H PRN 07/26/18 07/26/18 Unknown History Cyclobenzaprine [Flexeril] 10 mg PO QHS PRN #10 tablet 09/14/18 Unknown Rx Ibuprofen [Motrin] 600 mg PO Q8H PRN #20 tablet 09/14/18 Unknown Rx Ondansetron [Zofran Odt] 4 mg PO Q6H PRN #20 tab.rapdis 10/02/18 Unknown Rx traMADol [Ultram 50 MG tab] 50 mg PO Q6HR PRN #12 tablet 10/02/18 Unknown Rx Benzonatate [Tessalon Perles] 100 mg PO Q8HR PRN #30 capsule 11/30/18 Unknown Rx Fluticasone [Flonase] 1 spray NS QDAY #1 bottle 11/30/18 Unknown Rx Guaifenesin/Phenylephrine HCl 1 each PO Q6H #20 tablet 11/30/18 Unknown Rx [Chest-Sinus Congst Rlf Tablet] Minor Respiratory Exam - Exam General: Vital signs noted. No distress. Alert and acting appropriately. HEENT: Yes Pharyngeal Erythema (erythematous posterior pharynx, uvula midline), Yes Moist Mucous Membranes, Yes Rhinorrhea (turbinates mildly congested with clear discharge), No Pharyngeal Exudates, No Conjuctival Injection, No Frontal Tenderness, No Maxillary Tenderness Ear: Neither TM Bulge, Neither TM Erythema, Neither EAC Pain, Neither EAC Discharge Neck: Yes Supple, No Adenopathy Lungs: Yes Good Air Exchange, Yes Cough, No Wheezes, No Ronchi, No Stridor, No Labored Respirations, No Retractions, No Use of Accessory Muscles, No Other Abnormal Lung Sounds Heart: Yes Regular, No Murmur Abdomen: Yes Normal Bowel Sounds, No Tenderness, No Peritoneal Signs Skin: No Rash, No Edema Neurologic: Alert and oriented, no deficits. Musculoskeletal: Unremarkable. ED Course Vital Signs 11/30/18 05:38 Temperature 98.8 F Pulse Rate 93 H Respiratory 18 Rate Blood Pressure 147/87 O2 Sat by Pulse 97 Oximetry ED Medical Decision Making - Radiology Data Radiology results: report reviewed Chest x-ray impression: No focal area opacity. - Medical Decision Making 33 y.o. female that presents with URI symptoms. Patient examined by me and stable. No distress noted. Vitals normal. Chest xray has been obtained and dictated by radiologist. Patient notified of x-ray results with no questions. Start Flonase, benzonatate, and Mucinex DM. Discharged home stable. Encouraged to do supportive care for URI. Follow up with Primary Care Provider in 2-3 days. Critical care attestation.: If time is entered above; I have spent that time in minutes in the direct care of this critically ill patient, excluding procedure time. ED Disposition Clinical Impression: Cough in adult, Posterior rhinorrhea Upper respiratory infection Qualifiers: URI type: acute nasopharyngitis (common cold) Qualified Code(s): J00 - Acute nasopharyngitis [common cold] Disposition: TO HOME OR SELFCARE Is pt being admited?: No Does the pt Need Aspirin: No Condition: Stable Instructions: Upper Respiratory Infection (ED), Cold Symptoms (ED) Additional Instructions: Increase fluid intake and rest. Wash hands frequently. Continue taking Tylenol or ibuprofen to control fever. F/U with Primary Care Provider. Return to ER if fever, SOB, or difficulty breathing after 48 hours of supportive care. Prescriptions: Benzonatate [Tessalon Perles] 100 mg PO Q8HR PRN #30 capsule PRN Reason: Cough Fluticasone [Flonase] 1 spray NS QDAY #1 bottle Guaifenesin/Phenylephrine HCl [Chest-Sinus Congst Rlf Tablet] 1 each PO Q6H #20 tablet Referrals: [facility] [Provider Group] - 3-5 Days Forms: Work/School Release Form(ED) Time of Disposition: 07:30
== END 2018-11-30 07:43 | disposition home or self-care (01) ==
LOC: ED 05:28
DX: J06.9 Acute upper respiratory infection, unspecified (principal); G43.909 Migraine, unspecified, not intractable, without status migrainosus; E66.9 Obesity, unspecified; Z86.73 Personal history of transient ischemic attack (TIA), and cerebral infarction without residual deficits; Z88.1 Allergy status to other antibiotic agents
CPT/HCPCS: 71046

== ENCOUNTER 2019-02-17 11:30 | Emergency (ER) | payer OTHER ==
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
[2019-02-17 11:51] VITALS: BP 116/50
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
--- NOTE | 2019-02-17 14:32 | XRay Report ---
LUMBOSACRAL SPINE, 3 VIEWS: History: Back pain Findings: There is mild levo curvature of the lumbar spine which could be secondary to mild scoliosis or positioning of the patient. The vertebral bodies, disk spaces and posterior elements are intact. No compression deformity or malalignment. The SI joints are symmetric and unremarkable. Impression: 1. No evidence for acute injury to the lumbar spine.
--- NOTE | 2019-02-17 14:32 | XRay Report ---
CERVICAL SPINE, 3 views: History: Neck pain. Findings: The vertebral bodies, disk spaces, posterior elements and prevertebral soft tissues are unremarkable. The dens is intact. No acute fracture or malalignment is identified. Impression: 1. No evidence for acute injury to the cervical spine.
== END 2019-02-17 14:41 | disposition home or self-care (01) ==
LOC: ED 11:30
DX: M62.838 Other muscle spasm (principal); M54.5 Low back pain; G43.909 Migraine, unspecified, not intractable, without status migrainosus; V49.59XA Passenger injured in collision with other motor vehicles in traffic accident, initial encounter; Y93.89 Activity, other specified; Y92.89 Other specified places as the place of occurrence of the external cause; Y99.8 Other external cause status
CPT/HCPCS: 72040; 72100

== ENCOUNTER 2019-03-03 11:52 | Emergency (ER) | payer OTHER ==
--- NOTE | 2019-03-03 12:36 | Emergency Department Report ---
<DYLAN ZHU - Last Filed: 03/03/19 15:53> ED General Adult HPI - General Chief complaint: Abdominal Pain Stated complaint: ABD PAIN/VOMITING/POSS SYNCOPY Time Seen by Provider: 03/03/19 12:28 Source: patient, RN notes reviewed, old records reviewed Mode of arrival: Ambulatory Limitations: No Limitations - History of Present Illness Initial comments: Primary care DrRadha: Jonh cavanaugh Past medical history: Seizure disorder, obesity This is a pleasant 33-year-old female. The patient presents to the emergency room with a complaint of abdominal pain. The abdominal pain was periumbilical, and has now migrated to the right lower quadrant. The pain is present for the past day or so. It is worsening in qualitative nature. The pain is sharp. It increases with palpation and walking. It decreases with rest. There is positive nausea and vomiting. Question one episode of loose diarrhea, no urinary symptoms. Patient denies headache, neck pain, chest pain, focal extremity weakness or numbness, and vaginal discharge. The patient reports no history of gonorrhea or chlamydia that she is aware of. The patient reports that she is only sexually active with one female partner. -: Sudden Location: abdomen Radiation: abdomen Quality: aching Consistency: other Improves with: other Worsens with: other - Related Data Home Medications Medication Instructions Recorded Confirmed Last Taken carBAMazepine [TEGretol] 200 mg PO Q8HR 12/06/14 07/26/18 08/30/15 21:00 levETIRAcetam [Keppra XR TAB] 500 mg PO TID 08/05/15 07/26/18 08/30/15 21:00 Ibuprofen [Motrin 600 MG tab] 800 mg PO Q8H PRN 07/26/18 07/26/18 Unknown Previous Rx's Medication Instructions Recorded Last Taken Type Cyclobenzaprine [Flexeril] 10 mg PO QHS PRN #10 tablet 09/14/18 Unknown Rx Ibuprofen [Motrin] 600 mg PO Q8H PRN #20 tablet 09/14/18 Unknown Rx Ondansetron [Zofran Odt] 4 mg PO Q6H PRN #20 tab.rapdis 10/02/18 Unknown Rx traMADol [Ultram 50 MG tab] 50 mg PO Q6HR PRN #12 tablet 10/02/18 Unknown Rx Benzonatate [Tessalon Perles] 100 mg PO Q8HR PRN #30 capsule 11/30/18 Unknown Rx Fluticasone [Flonase] 1 spray NS QDAY #1 bottle 11/30/18 Unknown Rx Guaifenesin/Phenylephrine HCl 1 each PO Q6H #20 tablet 11/30/18 Unknown Rx [Chest-Sinus Congst Rlf Tablet] Allergies Allergy/AdvReac Type Severity Reaction Status Date / Time amoxicillin [Amoxicillin] Allergy Swelling Verified 07/07/17 10:41 ED Review of Systems Constitutional: malaise. denies: fever Eyes: denies: eye discharge ENT: denies: epistaxis Respiratory: denies: cough Cardiovascular: denies: chest pain, syncope Gastrointestinal: abdominal pain, nausea, vomiting Genitourinary: denies: urgency, dysuria, discharge Musculoskeletal: denies: back pain Skin: denies: lesions Neurological: weakness Psychiatric: denies: anxiety ED Past Medical Hx - Past Medical History Previous Medical History?: Yes Hx CVA: Yes (patient states that it was not a CVA but seizures that caused her symptoms ) Hx Headaches / Migraines: Yes Hx Seizures: Yes (episode of Yao's paralysis) Additional medical history: OBESITY - Surgical History Past Surgical History?: No - Social History Smoking Status: Never Smoker Substance Use Type: Alcohol - Medications Home Medications: Home Medications Medication Instructions Recorded Confirmed Last Taken Type carBAMazepine [TEGretol] 200 mg PO Q8HR 12/06/14 07/26/18 08/30/15 21:00 History levETIRAcetam [Keppra XR TAB] 500 mg PO TID 08/05/15 07/26/18 08/30/15 21:00 History Ibuprofen [Motrin 600 MG tab] 800 mg PO Q8H PRN 07/26/18 07/26/18 Unknown History Cyclobenzaprine [Flexeril] 10 mg PO QHS PRN #10 tablet 09/14/18 Unknown Rx Ibuprofen [Motrin] 600 mg PO Q8H PRN #20 tablet 09/14/18 Unknown Rx Ondansetron [Zofran Odt] 4 mg PO Q6H PRN #20 tab.rapdis 10/02/18 Unknown Rx traMADol [Ultram 50 MG tab] 50 mg PO Q6HR PRN #12 tablet 10/02/18 Unknown Rx Benzonatate [Tessalon Perles] 100 mg PO Q8HR PRN #30 capsule 11/30/18 Unknown Rx Fluticasone [Flonase] 1 spray NS QDAY #1 bottle 11/30/18 Unknown Rx Guaifenesin/Phenylephrine HCl 1 each PO Q6H #20 tablet 11/30/18 Unknown Rx [Chest-Sinus Congst Rlf Tablet] ED Physical Exam - General Limitations: No Limitations General appearance: alert, in no apparent distress - Head Head exam: Present: atraumatic, normocephalic - Eye Eye exam: Present: normal appearance, EOMI. Absent: nystagmus - ENT ENT exam: Present: normal exam, normal orophraynx, mucous membranes moist, normal external ear exam - Neck Neck exam: Present: normal inspection, full ROM. Absent: tenderness, meningismus - Respiratory Respiratory exam: Present: normal lung sounds bilaterally. Absent: respiratory distress, wheezes, rales, rhonchi, stridor - Cardiovascular Cardiovascular Exam: Present: regular rate, normal rhythm. Absent: systolic murmur, diastolic murmur, rubs, gallop - GI/Abdominal GI/Abdominal exam: Present: soft, tenderness. Absent: distended, guarding, rebound, rigid, pulsatile mass - Extremities Exam Extremities exam: Present: normal inspection, full ROM, pedal edema, other (2+ pulses noted in the bilateral upper, lower extremities. Compartments soft. No long bony tenderness. The pelvis is stable.). Absent: calf tenderness - Back Exam Back exam: Present: normal inspection, full ROM. Absent: tenderness, CVA tenderness (R), paraspinal tenderness, vertebral tenderness - Neurological Exam Neurological exam: Present: alert, normal gait, other (Extraocular movements intact. Tongue midline. No facial droop. Facial sensation intact to light touch in the V1, V2, V3 distribution bilaterally. 5 and 5 strength in 4 extremities.. Sensation is intact to light touch in 4 extremities.). Absent: motor sensory deficit - Psychiatric Psychiatric exam: Present: anxious - Skin Skin exam: Present: warm, dry, intact, normal color. Absent: rash ED Course - Reevaluation(s) Reevaluation #1: 03/03/19 15:10 Differential diagnosis, including not limited to: Appendicitis, colitis, diverticulitis, inflammatory bowel disease, ovarian cysts Assessment and plan: 33-year-old female with migratory periumbilical pain to right lower quadrant pain. The patient is afebrile with reassuring vital signs. She appears to be uncomfortable. We will treat her pain. Laboratory studies reviewed. CT scan of the abdomen and pelvis obtained, and interpretation is pending. Gynecologic ultrasound has been ordered, and interpretation is pending. We will reassess after her imaging studies have resulted. Reevaluation #2: 03/03/19 15:53 Care will be transferred to the oncoming ER physician, Dr. Lexie Patel, to follow up on CT scan of the abdomen and pelvis and gynecologic ultrasound. If no discrete surgical disease is identified, we would consider the patient medically suitable for discharge. ED Medical Decision Making - Lab Data Result diagrams: 03/03/19 12:21 03/03/19 12:21 Vital Signs 03/03/19 11:56 Temperature 98.5 F Pulse Rate 81 Respiratory 16 Rate Blood Pressure 126/60 O2 Sat by Pulse 95 Oximetry Lab Results 03/03/19 03/03/19 03/03/19 Range/Units 12:21 12:21 12:28 WBC 4.7 (4.5-11.0) K/mm3 RBC 4.44 (3.65-5.03) M/mm3 Hgb 10.4 (10.1-14.3) gm/dl Hct 32.8 (30.3-42.9) % MCV 74 L (79-97) fl MCH 24 L (28-32) pg MCHC 32 (30-34) % RDW 18.0 H (13.2-15.2) % Plt Count 267 (140-440) K/mm3 Lymph % (Auto) 26.4 (13.4-35.0) % Mcdowell % (Auto) 10.7 H (0.0-7.3) % Eos % (Auto) 6.2 H (0.0-4.3) % Baso % (Auto) 1.4 (0.0-1.8) % Lymph # 1.2 (1.2-5.4) K/mm3 Mcdowell # 0.5 (0.0-0.8) K/mm3 Eos # 0.3 (0.0-0.4) K/mm3 Baso # 0.1 (0.0-0.1) K/mm3 Seg Neutrophils % 55.3 (40.0-70.0) % Seg Neutrophils # 2.6 (1.8-7.7) K/mm3 PT (12.2-14.9) Sec. INR (0.87-1.13) Sodium 140 (137-145) mmol/L Potassium 3.9 (3.6-5.0) mmol/L Chloride 105.9 (98-107) mmol/L Carbon Dioxide 23 (22-30) mmol/L Anion Gap 15 mmol/L BUN 9 (7-17) mg/dL Creatinine 0.8 (0.7-1.2) mg/dL Estimated GFR > 60 ml/min BUN/Creatinine Ratio 11 % Glucose 99 (65-100) mg/dL Calcium 8.6 (8.4-10.2) mg/dL Magnesium (1.7-2.3) mg/dL Total Bilirubin 0.20 (0.1-1.2) mg/dL AST 11 (5-40) units/L ALT 8 (7-56) units/L Alkaline Phosphatase 80 (35-129) units/L Total Creatine Kinase (30-135) units/L Total Protein 6.7 (6.3-8.2) g/dL Albumin 3.5 L (3.9-5) g/dL Albumin/Globulin Ratio 1.1 % Lipase (13-60) units/L Urine Color Yellow (Yellow) Urine Turbidity Cloudy (Clear) Urine pH 7.0 (5.0-7.0) Ur Specific [place] 1.017 (1.003-1.030) Urine Protein <15 mg/dl (Negative) mg/dL Urine Glucose (UA) Neg (Negative) mg/dL Urine Ketones Neg (Negative) mg/dL Urine Blood Neg (Negative) Urine Nitrite Neg (Negative) Urine Bilirubin Neg (Negative) Urine Urobilinogen < 2.0 (<2.0) mg/dL Ur Leukocyte Esterase Neg (Negative) Urine WBC (Auto) 2.0 (0.0-6.0) /HPF Urine RBC (Auto) 2.0 (0.0-6.0) /HPF U Epithel Cells (Auto) 30.0 H (0-13.0) /HPF Urine Bacteria (Auto) 1+ (Negative) /HPF Urine Mucus Few /HPF Urine Yeast (Budding) 1+ /HPF Urine HCG, Qual (Negative) Urine Opiates Screen Urine Methadone Screen Ur Barbiturates Screen Ur Phencyclidine Scrn Ur Amphetamines Screen U Benzodiazepines Scrn Urine Cocaine Screen U Marijuana (THC) Screen Drugs of Abuse Note 03/03/19 03/03/19 03/03/19 Range/Units 12:39 12:43 12:43 WBC (4.5-11.0) K/mm3 RBC (3.65-5.03) M/mm3 Hgb (10.1-14.3) gm/dl Hct (30.3-42.9) % MCV (79-97) fl MCH (28-32) pg MCHC (30-34) % RDW (13.2-15.2) % Plt Count (140-440) K/mm3 Lymph % (Auto) (13.4-35.0) % Mcdowell % (Auto) (0.0-7.3) % Eos % (Auto) (0.0-4.3) % Baso % (Auto) (0.0-1.8) % Lymph # (1.2-5.4) K/mm3 Mcdowell # (0.0-0.8) K/mm3 Eos # (0.0-0.4) K/mm3 Baso # (0.0-0.1) K/mm3 Seg Neutrophils % (40.0-70.0) % Seg Neutrophils # (1.8-7.7) K/mm3 PT 14.2 (12.2-14.9) Sec. INR 1.04 (0.87-1.13) Sodium (137-145) mmol/L Potassium (3.6-5.0) mmol/L Chloride (98-107) mmol/L Carbon Dioxide (22-30) mmol/L Anion Gap mmol/L BUN (7-17) mg/dL Creatinine (0.7-1.2) mg/dL Estimated GFR ml/min BUN/Creatinine Ratio % Glucose (65-100) mg/dL Calcium (8.4-10.2) mg/dL Magnesium 1.90 (1.7-2.3) mg/dL Total Bilirubin (0.1-1.2) mg/dL AST (5-40) units/L ALT (7-56) units/L Alkaline Phosphatase (35-129) units/L Total Creatine Kinase 88 (30-135) units/L Total Protein (6.3-8.2) g/dL Albumin (3.9-5) g/dL Albumin/Globulin Ratio % Lipase 18 (13-60) units/L Urine Color (Yellow) Urine Turbidity (Clear) Urine pH (5.0-7.0) Ur Specific [place] (1.003-1.030) Urine Protein (Negative) mg/dL Urine Glucose (UA) (Negative) mg/dL Urine Ketones (Negative) mg/dL Urine Blood (Negative) Urine Nitrite (Negative) Urine Bilirubin (Negative) Urine Urobilinogen (<2.0) mg/dL Ur Leukocyte Esterase (Negative) Urine WBC (Auto) (0.0-6.0) /HPF Urine RBC (Auto) (0.0-6.0) /HPF U Epithel Cells (Auto) (0-13.0) /HPF Urine Bacteria (Auto) (Negative) /HPF Urine Mucus /HPF Urine Yeast (Budding) /HPF Urine HCG, Qual (Negative) Urine Opiates Screen Presumptive negative Urine Methadone Screen Presumptive negative Ur Barbiturates Screen Presumptive negative Ur Phencyclidine Scrn Presumptive negative Ur Amphetamines Screen Presumptive negative U Benzodiazepines Scrn Presumptive negative Urine Cocaine Screen Presumptive negative U Marijuana (THC) Screen Presumptive negative Drugs of Abuse Note Disclamer 03/03/19 Range/Units 13:28 WBC (4.5-11.0) K/mm3 RBC (3.65-5.03) M/mm3 Hgb (10.1-14.3) gm/dl Hct (30.3-42.9) % MCV (79-97) fl MCH (28-32) pg MCHC (30-34) % RDW (13.2-15.2) % Plt Count (140-440) K/mm3 Lymph % (Auto) (13.4-35.0) % Mcdowell % (Auto) (0.0-7.3) % Eos % (Auto) (0.0-4.3) % Baso % (Auto) (0.0-1.8) % Lymph # (1.2-5.4) K/mm3 Mcdowell # (0.0-0.8) K/mm3 Eos # (0.0-0.4) K/mm3 Baso # (0.0-0.1) K/mm3 Seg Neutrophils % (40.0-70.0) % Seg Neutrophils # (1.8-7.7) K/mm3 PT (12.2-14.9) Sec. INR (0.87-1.13) Sodium (137-145) mmol/L Potassium (3.6-5.0) mmol/L Chloride (98-107) mmol/L Carbon Dioxide (22-30) mmol/L Anion Gap mmol/L BUN (7-17) mg/dL Creatinine (0.7-1.2) mg/dL Estimated GFR ml/min BUN/Creatinine Ratio % Glucose (65-100) mg/dL Calcium (8.4-10.2) mg/dL Magnesium (1.7-2.3) mg/dL Total Bilirubin (0.1-1.2) mg/dL AST (5-40) units/L ALT (7-56) units/L Alkaline Phosphatase (35-129) units/L Total Creatine Kinase (30-135) units/L Total Protein (6.3-8.2) g/dL Albumin (3.9-5) g/dL Albumin/Globulin Ratio % Lipase (13-60) units/L Urine Color (Yellow) Urine Turbidity (Clear) Urine pH (5.0-7.0) Ur Specific [place] (1.003-1.030) Urine Protein (Negative) mg/dL Urine Glucose (UA) (Negative) mg/dL Urine Ketones (Negative) mg/dL Urine Blood (Negative) Urine Nitrite (Negative) Urine Bilirubin (Negative) Urine Urobilinogen (<2.0) mg/dL Ur Leukocyte Esterase (Negative) Urine WBC (Auto) (0.0-6.0) /HPF Urine RBC (Auto) (0.0-6.0) /HPF U Epithel Cells (Auto) (0-13.0) /HPF Urine Bacteria (Auto) (Negative) /HPF Urine Mucus /HPF Urine Yeast (Budding) /HPF Urine HCG, Qual Negative (Negative) Urine Opiates Screen Urine Methadone Screen Ur Barbiturates Screen Ur Phencyclidine Scrn Ur Amphetamines Screen U Benzodiazepines Scrn Urine Cocaine Screen U Marijuana (THC) Screen Drugs of Abuse Note - EKG Data -: EKG Interpreted by Ca EKG shows normal: sinus rhythm Rate: normal - EKG Data 03/03/19 15:11 Normal sinus, 71 bpm, normal axis, normal intervals, low voltage, poor progression, not having chest pain, this is an abnormal EKG, this is not consistent with ST elevation myocardial infarction. - Radiology Data Radiology results: pending, image reviewed ED Disposition Clinical Impression: Intractable abdominal pain, Hemorrhagic ovarian cyst Intractable nausea and vomiting Qualifiers: Vomiting type: unspecified Qualified Code(s): R11.2 - Nausea with vomiting, unspecified Abdominal pain Qualifiers: Abdominal location: right lower quadrant Qualified Code(s): R10.31 - Right lower quadrant pain Uterine fibroid Qualifiers: Uterine leiomyoma location: unspecified location Qualified Code(s): D25.9 - Leiomyoma of uterus, unspecified Disposition: DC/TX-70 ANOTHER TYPE [facility] Condition: Critical Instructions: Abdominal Pain (ED) [facility] KEC[facility] [Primary Care Provider] - 3-5 Days <JIMI PATEL III - Last Filed: 03/03/19 23:12> ED Review of Systems ROS: Stated complaint: ABD PAIN/VOMITING/POSS SYNCOPY Other details as noted in HPI ED Course Vital Signs 03/03/19 03/03/19 03/03/19 11:56 12:22 12:30 Temperature 98.5 F Pulse Rate 81 Respiratory 16 Rate Blood Pressure 126/60 101/60 Blood Pressure [Left] O2 Sat by Pulse 95 99 96 Oximetry 03/03/19 03/03/19 03/03/19 12:45 13:00 13:15 Temperature Pulse Rate 65 Respiratory 22 Rate Blood Pressure 106/51 118/68 121/66 Blood Pressure [Left] O2 Sat by Pulse 99 100 98 Oximetry 03/03/19 03/03/19 03/03/19 13:30 13:45 14:01 Temperature Pulse Rate 82 64 Respiratory 14 19 Rate Blood Pressure 125/74 125/74 118/68 Blood Pressure [Left] O2 Sat by Pulse 100 85 Oximetry 03/03/19 03/03/19 03/03/19 14:16 14:33 14:48 Temperature Pulse Rate Respiratory Rate Blood Pressure 118/68 118/68 118/68 Blood Pressure [Left] O2 Sat by Pulse 78 L Oximetry 03/03/19 03/03/19 03/03/19 15:21 15:34 15:46 Temperature Pulse Rate Respiratory Rate Blood Pressure 118/68 118/68 118/68 Blood Pressure [Left] O2 Sat by Pulse 80 L Oximetry 03/03/19 03/03/19 03/03/19 16:01 16:15 16:30 Temperature Pulse Rate 62 66 70 Respiratory 19 24 15 Rate Blood Pressure 110/48 105/43 106/46 Blood Pressure [Left] O2 Sat by Pulse 99 97 99 Oximetry 03/03/19 03/03/19 03/03/19 19:15 20:01 21:01 Temperature 99.3 F Pulse Rate 71 70 59 L Respiratory 14 13 15 Rate Blood Pressure 120/64 115/48 Blood Pressure 116/55 [Left] O2 Sat by Pulse 97 97 96 Oximetry 03/03/19 21:30 Temperature 98.9 F Pulse Rate 76 Respiratory 15 Rate Blood Pressure Blood Pressure 115/78 [Left] O2 Sat by Pulse 97 Oximetry - Reevaluation(s) Reevaluation #3: Discussed case with patient. Discussed results with patient. Patient states he is in significant pain. Patient states her pain has not come down at all. Patient will be given another 1 of Dilaudid as well as 30 mg of Toradol. And another dose of Zofran for her nausea. [place] doctor will be consulted. 03/03/19 18:30 States her pain is still the same and has not moved. Patient will be given another milligram of Dilaudid. We will discuss the case again with [place] physician on-call. 03/03/19 20:13 Patient agrees with plan of care and transfer. Patient will be transferred to [facility] since the patient is a [place] patient. - Consultations Consultation #1: Discussed case with [place] physician. [place] physician recommends another dose and see if we can reduce her pain. 03/03/19 18:35 discussed case with [place] physician. Dr Arredondo states she is going to discuss the case with her hospitalist and give us a call back. 03/03/19 20:16 Dr Arredondo as except patient to be transferred to [facility]. 03/03/19 22:09 ED Medical Decision Making - Lab Data Result diagrams: 03/03/19 12:21 03/03/19 12:21 Critical Care Time: Yes Critical care attestation.: If time is entered above; I have spent that time in minutes in the direct care of this critically ill patient, excluding procedure time. Critical Care Time: 35 minutes ED Disposition Is pt being admited?: No Does the pt Need Aspirin: No Time of Disposition: 23:12
[2019-03-03 12:47] LABS: Bacteria,Urine 1+ /HPF (Negative); Bilirubin,Urine NEG (Negative); Blood,Urine NEG (Negative); Color,Urine Yellow (Yellow); Mucus,Urine FEW /HPF; Protein,Urine <15 mg/dL mg/dL (Negative); Urobilinogen,Urine < 2.0 mg/dL (<2.0)
[2019-03-03 13:02] LABS: Basophils # (Auto) 0.1 K/mm3 (0.0-0.1); Basophils % (Auto) 1.4 % (0.0-1.8); Eosinophils # (Auto) 0.3 K/mm3 (0.0-0.4); Eosinophils % (Auto) 6.2 % (0.0-4.3); Hematocrit 32.8 % (30.3-42.9); Hemoglobin 10.4 gm/dl (10.1-14.3); Lymphocytes # (Auto) 1.2 K/mm3 (1.2-5.4); Lymphocytes % (Auto) 26.4 % (13.4-35.0); Mean Corpuscular HGB Conc 32 % (30-34); Mean Corpuscular Volume 74 fl (79-97); Monocytes # (Auto) 0.5 K/mm3 (0.0-0.8); Monocytes % (Auto) 10.7 % (0.0-7.3); Platelet Count 267 K/mm3 (140-440); Red Blood Count 4.44 M/mm3 (3.65-5.03)
[2019-03-03 13:06] LABS: INR 1.04 (0.87-1.13)
[2019-03-03 13:22] LABS: Alanine Aminotransferase 8 units/L (7-56); Albumin 3.5 g/dL (3.9-5); BUN/Creatinine Ratio 11; Blood Urea Nitrogen 9 mg/dL (7-17); Calcium 8.6 mg/dL (8.4-10.2); Hemolysis Index 4
[2019-03-03 13:37] LABS: HCG Qualitative,Urine Negative (Negative)
[2019-03-03] MEDS ORDERED: NACL 0.9% 1000 ML 1,000 ML IV ONE (13:37)
[2019-03-03] MEDS ORDERED: MORPHINE IV ONE (13:37)
[2019-03-03] MEDS ORDERED: ZOFRAN IV ONE ×2 (13:37→18:38)
[2019-03-03 14:07] LABS: Amphetamine Screen,Urine PRESUMPTIVE NEGATIVE; Benzodiazepines Screen,Urine PRESUMPTIVE NEGATIVE; Cannabinoid Screen,Urine PRESUMPTIVE NEGATIVE; Cocaine Screen,Urine PRESUMPTIVE NEGATIVE; Methadone Screen,Urine PRESUMPTIVE NEGATIVE; Opiate Screen,Urine PRESUMPTIVE NEGATIVE
[2019-03-03] MEDS ORDERED: DILAUDID IV ONE ×2 (15:07→18:38)
--- NOTE | 2019-03-03 16:31 | Cat Scan Report ---
PROCEDURE: CT ABDOMEN PELVIS W CON TECHNIQUE: Computerized axial tomography of the abdomen and pelvis was performed after the IV inject ion of iodinated nonionic contrast. CT DOSE LENGTH PRODUCT: 3627.4 mGycm HISTORY: lower abd pain COMPARISONS: None . FINDINGS: Lower Lung bourne: No significant abnormalities seen. Upper Abdomen: The liver, gallbladder, adrenal glands, pancreas and spleen are unremarkable. Kidneys, Ureters and Urinary bladder: No abnormalities are seen. Retroperitoneum: Abdominal aorta appears normal. Nonspecific subcentimeter lymph nodes are seen in the retroperitoneum. No pathologically enlarged ly mph nodes are identified. Bowel: No abnormalities are seen. No evidence of bowel obstruction, ascites or free intraperitoneal gas. Normal-appearing appendix is seen in the right lower quadrant. Reproductive organs: The myometrium of uterus is slightly lobulated and shows mild heterogeneous den sity. There may be small uterine fibroids present. Uterus and adnexa otherwise are unremarkable. Other: No acute bone abnormalities are identified. IMPRESSION: No acute abnormalities identified. Heterogeneous density seen in the myometrium of the uterus. There may be small fibroids present. If c linically indicated pelvic ultrasound could be obtained for further evaluation. This document is electronically signed by Rafael Pinto MD., Mar 03 2019 04:29:39 PM ET
--- NOTE | 2019-03-03 17:54 | Ultrasound Report ---
PROCEDURE: US TRANSVAGINAL, US PELVIS DUPLEX DOPPLER COMP TECHNIQUE: Transverse longitudinal sonograms obtained with church scale sonography. Transvaginal and t ransabdominal sonography. Spectral and color Doppler evaluation. HISTORY: lower abd pelvic pain COMPARISONS: Abdominal pelvic CT March 03, 2019 FINDINGS: Uterus measures 11.0 by is 0.5 x 5.6 cm. Endometrial thickness 0.6 cm. Normal for patient age Lower uterine segment central mass measuring 4.4 x 3.2 x 4.7 cm. Finding compatible with submucosal f ibroid. This correlates with findings at CT. Additional smaller intramural and subserosal fibroids no julia measuring 2.2 and 2.0 cm respectively. Right ovary measures 3.4 x 1.9 x 3.8 cm. 2.4 cm hemorrhagic follicle noted. Left ovary measures 3.2 x 1.5 x 2.3 cm. Ovaries demonstrate blood flow with Doppler No free fluid IMPRESSION: Uterine fibroids. Large submucosal fibroid correlating with findings at CT. Normal-sized ovaries. Hemorrhagic follicle right Ovaries demonstrate blood flow with Doppler No free fluid. This document is electronically signed by Say Yarbrough MD., Mar 03 2019 05:52:53 PM ET
[2019-03-03] MEDS ORDERED: TORADOL IV ONE (18:53)
[2019-03-03 22:10] VITALS: BP 115/78
== END 2019-03-03 23:00 | disposition other institution (70) ==
LOC: ED 11:52
DX: N83.201 Unspecified ovarian cyst, right side (principal); R11.2 Nausea with vomiting, unspecified; D25.9 Leiomyoma of uterus, unspecified; G43.909 Migraine, unspecified, not intractable, without status migrainosus
CPT/HCPCS: 36415; 74177; 76830; 80053; 80307; 81001; 81025; 82550; 83690; 83735; 85025; 85610; 93005; 93010; 93975; 96361; 96374; 96375; 96376; 99291; J1170; J1885; J2270; J2405; J7030; Q9967

== ENCOUNTER 2019-07-06 22:51 | Emergency (ER) | payer OTHER ==
[2019-07-06 23:54] LABS: Basophils # (Auto) 0.1 K/mm3 (0.0-0.1); Basophils % (Auto) 1.5 % (0.0-1.8); Eosinophils # (Auto) 0.3 K/mm3 (0.0-0.4); Eosinophils % (Auto) 4.5 % (0.0-4.3); Hematocrit 30.4 % (30.3-42.9); Hemoglobin 9.5 gm/dl (10.1-14.3); Lymphocytes # (Auto) 1.9 K/mm3 (1.2-5.4); Lymphocytes % (Auto) 33.3 % (13.4-35.0); Mean Corpuscular HGB Conc 31 % (30-34); Mean Corpuscular Volume 71 fl (79-97); Monocytes # (Auto) 0.4 K/mm3 (0.0-0.8); Monocytes % (Auto) 7.6 % (0.0-7.3); Platelet Count 279 K/mm3 (140-440); Red Blood Count 4.32 M/mm3 (3.65-5.03); Red Cell Distribution Width 17.8 % (13.2-15.2)
[2019-07-07 00:18] LABS: Alanine Aminotransferase 8 units/L (7-56); Albumin 3.4 g/dL (3.9-5); BUN/Creatinine Ratio 17; Blood Urea Nitrogen 10 mg/dL (7-17); Calcium 8.3 mg/dL (8.4-10.2); Hemolysis Index 7
[2019-07-07] MEDS ORDERED: KEPPRA 1,000 MG/NS 0.75% 100ML 1,000 MG/100 ML BAG IV ONE (00:40)
[2019-07-07] MEDS ORDERED: REGLAN IV ONE (00:40)
--- NOTE | 2019-07-07 00:41 | Emergency Department Report ---
ED General Adult HPI - General Chief complaint: Seizure Stated complaint: SEIZURES Time Seen by Provider: 07/07/19 00:29 Source: patient, EMS ( EMS documentation not available at time of chart dictation ), RN notes reviewed, old records reviewed Mode of arrival: Wheelchair Limitations: No Limitations - History of Present Illness Initial comments: This is a pleasant 34-year-old female. I have evaluated this patient in the past. The patient typically follows with the [facility]. Past medical history includes seizure, obesity, migraines, typically takes Tegretol, 250 mg, 3 times daily, Keppra, 500 mg, 3 times daily, chronic headaches, and uterine fibroids, diagnosed in this hospital. Today, the patient presents to the ER with a complaint of possible seizure versus syncope. The patient states that she was in her usual state of health at 10:00 yesterday evening, when she walked to a car, and believes that she had a loss of consciousness with some shaking. This is corroborated by a friend. The patient reports that she fell to her hands/forearms, and not her head. She also endorses 2 weeks of crampy vaginal bleeding. She reports using 15 pads in the past 36 hours. The patient also describes acute on chronic headache, frontal and occipital, present for the past few days. The patient denies cannabis use and tobacco use. She denies urinary symptoms. She denies vomiting. She denies DVT, pulmonary embolus risk factors. Bleeding constant for the past 2 weeks, does not radiate anywhere, does not have exacerbating or relieving factors. After being diagnosed with fibroids in March of this year, patient reports that she was "too busy" to follow-up. She endorses compliance with her seizure medications. -: Gradual, Sudden Location: head, abdomen Consistency: intermittent Improves with: rest Worsens with: movement - Related Data Home Medications Medication Instructions Recorded Confirmed Last Taken carBAMazepine [TEGretol] 200 mg PO Q8HR 12/06/14 07/26/18 08/30/15 21:00 levETIRAcetam [Keppra XR TAB] 500 mg PO TID 08/05/15 07/26/18 08/30/15 21:00 Ibuprofen [Motrin 600 MG tab] 800 mg PO Q8H PRN 07/26/18 07/26/18 Unknown Previous Rx's Medication Instructions Recorded Last Taken Type Cyclobenzaprine [Flexeril] 10 mg PO QHS PRN #10 tablet 09/14/18 Unknown Rx Ibuprofen [Motrin] 600 mg PO Q8H PRN #20 tablet 09/14/18 Unknown Rx Ondansetron [Zofran Odt] 4 mg PO Q6H PRN #20 tab.rapdis 10/02/18 Unknown Rx traMADol [Ultram 50 MG tab] 50 mg PO Q6HR PRN #12 tablet 10/02/18 Unknown Rx Benzonatate [Tessalon Perles] 100 mg PO Q8HR PRN #30 capsule 11/30/18 Unknown Rx Fluticasone [Flonase] 1 spray NS QDAY #1 bottle 11/30/18 Unknown Rx Guaifenesin/Phenylephrine HCl 1 each PO Q6H #20 tablet 11/30/18 Unknown Rx [Chest-Sinus Congst Rlf Tablet] Ibuprofen [Motrin] 600 mg PO Q8H PRN #30 tablet 07/07/19 Unknown Rx Metoclopramide [Reglan] 10 mg PO QID PRN #30 tablet 07/07/19 Unknown Rx Allergies Allergy/AdvReac Type Severity Reaction Status Date / Time amoxicillin [Amoxicillin] Allergy Swelling Verified 07/07/17 10:41 ED Review of Systems ROS: Stated complaint: SEIZURES Other details as noted in HPI Constitutional: malaise Eyes: denies: eye discharge ENT: denies: epistaxis Respiratory: denies: cough Cardiovascular: syncope ("Question syncope versus seizure) Gastrointestinal: abdominal pain. denies: vomiting Genitourinary: abnormal menses Musculoskeletal: myalgia Skin: denies: lesions Neurological: headache Psychiatric: anxiety ED Past Medical Hx - Past Medical History Hx CVA: Yes (patient states that it was not a CVA but seizures that caused her symptoms ) Hx Headaches / Migraines: Yes Hx Seizures: Yes (episode of Yao's paralysis) Additional medical history: OBESITY, fibroids - Social History Smoking Status: Never Smoker - Medications Home Medications: Home Medications Medication Instructions Recorded Confirmed Last Taken Type carBAMazepine [TEGretol] 200 mg PO Q8HR 12/06/14 07/26/18 08/30/15 21:00 History levETIRAcetam [Keppra XR TAB] 500 mg PO TID 08/05/15 07/26/18 08/30/15 21:00 History Ibuprofen [Motrin 600 MG tab] 800 mg PO Q8H PRN 07/26/18 07/26/18 Unknown History Cyclobenzaprine [Flexeril] 10 mg PO QHS PRN #10 tablet 09/14/18 Unknown Rx Ibuprofen [Motrin] 600 mg PO Q8H PRN #20 tablet 09/14/18 Unknown Rx Ondansetron [Zofran Odt] 4 mg PO Q6H PRN #20 tab.rapdis 10/02/18 Unknown Rx traMADol [Ultram 50 MG tab] 50 mg PO Q6HR PRN #12 tablet 10/02/18 Unknown Rx Benzonatate [Tessalon Perles] 100 mg PO Q8HR PRN #30 capsule 11/30/18 Unknown Rx Fluticasone [Flonase] 1 spray NS QDAY #1 bottle 11/30/18 Unknown Rx Guaifenesin/Phenylephrine HCl 1 each PO Q6H #20 tablet 11/30/18 Unknown Rx [Chest-Sinus Congst Rlf Tablet] Ibuprofen [Motrin] 600 mg PO Q8H PRN #30 tablet 07/07/19 Unknown Rx Metoclopramide [Reglan] 10 mg PO QID PRN #30 tablet 07/07/19 Unknown Rx ED Physical Exam - General Limitations: No Limitations General appearance: alert, in no apparent distress, obese - Head Head exam: Present: atraumatic, normocephalic - Eye Eye exam: Present: normal appearance, PERRL, EOMI, other (visual acuity intact to finger counting and color perception at a close distance.). Absent: nystagmus - ENT ENT exam: Present: normal exam, normal orophraynx, mucous membranes moist, normal external ear exam - Neck Neck exam: Present: normal inspection, full ROM. Absent: tenderness, meningismus - Respiratory Respiratory exam: Present: normal lung sounds bilaterally. Absent: respiratory distress - Cardiovascular Cardiovascular Exam: Present: regular rate, normal rhythm, normal heart sounds. Absent: bradycardia, tachycardia, irregular rhythm, systolic murmur, diastolic murmur, rubs, gallop - GI/Abdominal GI/Abdominal exam: Present: soft, tenderness, other (there is minimal suprapubic and left lower quadrant abdominal tenderness. There is no rebound, guarding or peritoneal signs. There is no right lower quadrant tenderness. There is no right upper quadrant tenderness. There is a negative Sanchez sign. There is a negative Rovsing sign.). Absent: distended, guarding, rebound, rigid, pulsatile mass - External exam: Present: normal external exam Speculum exam: Present: normal speculum exam, vaginal bleeding, other (chaperoned by nurse Odalys tran) - Extremities Exam Extremities exam: Present: normal inspection, full ROM, other (2+ pulses noted in the bilateral upper, lower extremities. There is no long bone tenderness. Musculoskeletal compartments are soft. The pelvis is stable.). Absent: pedal edema, joint swelling, calf tenderness - Back Exam Back exam: Present: normal inspection, full ROM. Absent: tenderness, CVA tende rness (R), CVA tenderness (L), paraspinal tenderness, vertebral tenderness - Neurological Exam Neurological exam: Present: alert, oriented X3, normal gait, other (there is no facial droop. The tongue is midline. Extraocular movements are intact bilaterally. Patient speaking in full complete sentences. Shoulder shrug is intact bilaterally. Hearing is grossly intact bilaterally. Visual acuity intact to finger counting and color perception at a close distance. 5/5 strength 4 extremities. Sensation intact to light touch in 4 extremities.). Absent: motor sensory deficit - Psychiatric Psychiatric exam: Present: normal affect, normal mood - Skin Skin exam: Present: warm, dry, intact, normal color. Absent: rash ED Course Vital Signs 07/06/19 23:20 Temperature 97.8 F Pulse Rate 66 Respiratory 20 Rate Blood Pressure 112/56 O2 Sat by Pulse 100 Oximetry - Reevaluation(s) Reevaluation #1: 07/07/19 01:04 Differential diagnosis, including but not limited to: Breakthrough seizure, medication noncompliance, anemia, , uterine fibroid, dysfunctional uterine bleeding, electrolyte derangement, arrhythmia Assessment and plan: 34-year-old female with known history of fibroids, known history of vaginal bleeding, known history of seizures, presenting with 2 com plaints Complaint #1, vaginal bleeding, present for weeks. Hemoglobin, hematocrit reviewed and appreciated. test pending. Patient's already had ultrasound imaging at this hospital. Assuming she is not , she'll need to follow up with an outpatient clinical account manager. We'll perform a gynecologic examination. However, this bleeding at this time is suitable to be managed as an outpatient. Complaint #2, seizure versus syncope. Patient also likely had a breakthrough seizure. The patient is afebrile with reassuring vital signs. She walks with a steady gait. She is clinically sober. Not tachycardic, not hypoxic, low risk by well's criteria, perc negative We will check basic laboratory studies, EKG, placed patient on monitoring specialist, and loaded with Keppra. We will observe, and reassess after data points have resulted. Reevaluation #2: 07/07/19 02:41 Laboratory studies reviewed and appreciated. Patient felt to have subtherapeutic Tegretol level. Walking with a steady gait. Urinalysis pending. Patient talking on a cell phone, gynecologic examination is benign. ED Medical Decision Making - Lab Data Result diagrams: 07/06/19 23:42 07/06/19 23:42 Vital Signs 07/06/19 23:20 Temperature 97.8 F Pulse Rate 66 Respiratory 20 Rate Blood Pressure 112/56 O2 Sat by Pulse 100 Oximetry Lab Results 07/06/19 07/06/19 Range/Units 23:42 23:42 WBC 5.7 (4.5-11.0) K/mm3 RBC 4.32 (3.65-5.03) M/mm3 Hgb 9.5 L (10.1-14.3) gm/dl Hct 30.4 (30.3-42.9) % MCV 71 L (79-97) fl MCH 22 L (28-32) pg MCHC 31 (30-34) % RDW 17.8 H (13.2-15.2) % Plt Count 279 (140-440) K/mm3 Lymph % (Auto) 33.3 (13.4-35.0) % Hays % (Auto) 7.6 H (0.0-7.3) % Eos % (Auto) 4.5 H (0.0-4.3) % Baso % (Auto) 1.5 (0.0-1.8) % Lymph # 1.9 (1.2-5.4) K/mm3 Hays # 0.4 (0.0-0.8) K/mm3 Eos # 0.3 (0.0-0.4) K/mm3 Baso # 0.1 (0.0-0.1) K/mm3 Seg Neutrophils % 53.1 (40.0-70.0) % Seg Neutrophils # 3.0 (1.8-7.7) K/mm3 Sodium 138 (137-145) mmol/L Potassium 3.6 (3.6-5.0) mmol/L Chloride 103.8 (98-107) mmol/L Carbon Dioxide 21 L (22-30) mmol/L Anion Gap 17 mmol/L BUN 10 (7-17) mg/dL Creatinine 0.6 L (0.7-1.2) mg/dL Estimated GFR > 60 ml/min BUN/Creatinine Ratio 17 % Glucose 87 (65-100) mg/dL Calcium 8.3 L (8.4-10.2) mg/dL Total Bilirubin 0.20 (0.1-1.2) mg/dL AST 11 (5-40) units/L ALT 8 (7-56) units/L Alkaline Phosphatase 81 (35-129) units/L Total Protein 6.9 (6.3-8.2) g/dL Albumin 3.4 L (3.9-5) g/dL Albumin/Globulin Ratio 1.0 % - Radiology Data Radiology results: report reviewed, image reviewed Print Report Referring Physician: DYLAN ZHU Patient Name: JANET WILLIAM Date of : 1985 Sex: Female Report Date: 2019-03-03 Report Status: [place] [address] Ultrasound Report Signed Patient: JANET WILLIAM MR#: [id number] : 1985 Acct:[id number] Age/Sex: 33 / F ADM Date: 03/03/19 Loc: ED Attending Dr: Ordering Physician: DYLAN ZHU MD Date of Service: 03/03/19 Procedure(s): US transvaginal Accession Number(s): [id number] cc: DYLAN ZHU MD PROCEDURE: US TRANSVAGINAL, US PELVIS DUPLEX DOPPLER COMP TECHNIQUE: Transverse longitudinal sonograms obtained with church scale son ography. Transvaginal and transabdominal sonography. Spectral and color Doppler evaluation. HISTORY: lower abd pelvic pain COMPARISONS: Abdominal pelvic CT March 03, 2019 FINDINGS: Uterus measures 11.0 by is 0.5 x 5.6 cm. Endometrial thickness 0.6 cm. Normal for patient age Lower uterine segment central mass measuring 4.4 x 3.2 x 4.7 cm. Finding compatible with submucosal fibroid. This correlates with findings at CT. Additional smaller intramural and subserosal fibroids noted measuring 2.2 and 2.0 cm respectively. Right ovary measures 3.4 x 1.9 x 3.8 cm. 2.4 cm hemorrhagic follicle noted. Left ovary measures 3.2 x 1.5 x 2.3 cm. Ovaries demonstrate blood flow with Doppler No free fluid IMPRESSION: Uterine fibroids. Large submucosal fibroid correlating with findings at CT. Normal-sized ovaries. Hemorrhagic follicle right Ovaries demonstrate blood flow with Doppler No free fluid. This document is electronically signed by Say Pathak MD., Mar 03 2019 05:52:53 PM ET Transcribed By: HJ Dictated By: SAY PATHAK MD Electronically Authenticated By: SAY PATHAK MD Signed Date/Time: 03/03/19 1756 Referring Physician: DYLAN ZHU Patient Name: JANET WILLIAM Date of : 1985 Sex: Female Report Date: 2019-03-03 Report Status: Finalized Findings [facility] [address] [place] [address] Cat Scan Report Signed Patient: JANET WILLIAM MR#: [id number] : 1985 Acct:[id number] Age/Sex: 33 / F ADM Date: 03/03/19 Loc: ED Attending Dr: Ordering Physician: DYLAN ZHU MD Date of Service: 03/03/19 Procedure(s): CT abdomen pelvis w con Accession Number(s): [id number] cc: DYLAN ZHU MD PROCEDURE: CT ABDOMEN PELVIS W CON TECHNIQUE: Computerized axial tomography of the abdomen and pelvis was performed after the IV injection of iodinated nonionic contrast. CT DOSE LENGTH PRODUCT: 3627.4 mGycm HISTORY: lower abd pain COMPARISONS: None . FINDINGS: Lower Lung bourne: No significant abnormalities seen. Upper Abdomen: The liver, gallbladder, adrenal glands, pancreas and spleen are unremarkable. Kidneys, Ureters and Urinary bladder: No abnormalities are seen. Retroperitoneum: Abdominal aorta appears normal. Nonspecific subcentimeter lymph nodes are seen in the retroperitoneum. No pathologically enlarged lymph nodes are identified. Bowel: No abnormalities are seen. No evidence of bowel obstruction, ascites or free intraperitoneal gas. Normal-appearing appendix is seen in the right lower quadrant. Reproductive organs: The myometrium of uterus is slightly lobulated and shows mild heterogeneous density. There may be small uterine fibroids present. Uterus and adnexa otherwise are unremarkable. Other: No acute bone abnormalities are identified. IMPRESSION: No acute abnormalities identified. Heterogeneous density seen in the myometrium of the uterus. There may be small fibroids present. If clinically indicated pelvic ultrasound could be obtained for further evaluation. This document is electronically signed by Rafael Hua MD., Mar 03 2019 04:29:39 PM ET Transcribed By: DFN Dictated By: RAFAEL HUA MD Electronically Authenticated By: RAFAEL HUA MD Signed Date/Time: 03/03/19 1631 Critical care attestation.: If time is entered above; I have spent that time in minutes in the direct care of this critically ill patient, excluding procedure time. ED Disposition Clinical Impression: History of seizure, History of uterine fibroid Disposition: - TO HOME OR SELFCARE Is pt being admited?: No Does the pt Need Aspirin: No Condition: Stable Additional Instructions: Do not drive or operate motor vehicles for the next 6 months. Continue ou tpatient seizure medications. Please follow-up with your primary care doctor or neurology specialist within the next 7 days for repeat checkup/evaluation, and possible readjustment of seizure medicines. Please follow up with a clinical account manager within the next 2 weeks. Take the prescribed pain medications, nausea medications as needed/directed. Return to the emergency room with projectile vomiting, change in mental status, confusion, inability to tolerate liquid feeds, bleeding more than 2 pads soaked for hour, lightheadedness, loss of consciousness, new, worsening or different symptoms not present on the initial emergency room evaluation. Referrals: DAGMAR HILL MD [Primary Care Provider] - 3-5 Days JAMES LAU MD [Staff Physician] - 3-5 Days [facility] [Provider Group] - 3-5 Days
[2019-07-07 01:34] LABS: INR 1.11 (0.87-1.13)
[2019-07-07 02:59] LABS: Bilirubin,Urine NEG (Negative); Blood,Urine LG (Negative); Color,Urine Yellow (Yellow); Mucus,Urine FEW /HPF; Urobilinogen,Urine < 2.0 mg/dL (<2.0)
[2019-07-07 03:01] LABS: Amphetamine Screen,Urine PRESUMPTIVE NEGATIVE; Benzodiazepines Screen,Urine PRESUMPTIVE NEGATIVE; Cannabinoid Screen,Urine PRESUMPTIVE NEGATIVE; Cocaine Screen,Urine PRESUMPTIVE NEGATIVE; Methadone Screen,Urine PRESUMPTIVE NEGATIVE; Opiate Screen,Urine PRESUMPTIVE NEGATIVE
[2019-07-07 03:05] LABS: RBC,Urine > 182.0 /HPF (0.0-6.0)
[2019-07-07 04:02] VITALS: BP 112/79
== END 2019-07-07 04:01 | disposition home or self-care (01) ==
LOC: ED 22:51
DX: R56.9 Unspecified convulsions (principal); D25.9 Leiomyoma of uterus, unspecified; G43.909 Migraine, unspecified, not intractable, without status migrainosus; E66.9 Obesity, unspecified; Z86.018 Personal history of other benign neoplasm; Z86.73 Personal history of transient ischemic attack (TIA), and cerebral infarction without residual deficits; Z79.899 Other long term (current) drug therapy; Z88.1 Allergy status to other antibiotic agents
CPT/HCPCS: 36415; 80053; 80156; 80307; 81001; 82550; 83735; 84702; 85025; 85610; 86850; 86900; 86901; 87086; 93005; 93010; 96374; 96375; 99285; J1953; J2765; 80320; G0480

== ENCOUNTER 2019-09-21 23:23 | Emergency (ER) | payer OTHER ==
[2019-09-22 00:17] VITALS: BP 144/83
[2019-09-22 01:00] LABS: Hematocrit 30.9 % (30.3-42.9); Hemoglobin 9.6 gm/dl (10.1-14.3); Mean Corpuscular HGB Conc 31 % (30-34); Mean Corpuscular Volume 71 fl (79-97); Platelet Count 293 K/mm3 (140-440); Red Blood Count 4.37 M/mm3 (3.65-5.03); Red Cell Distribution Width 19.1 % (13.2-15.2)
[2019-09-22 01:12] LABS: Alanine Aminotransferase 7 units/L (7-56); Albumin 3.9 g/dL (3.9-5); BUN/Creatinine Ratio 11; Blood Urea Nitrogen 9 mg/dL (7-17); Calcium 8.3 mg/dL (8.4-10.2); Hemolysis Index 3
--- NOTE | 2019-09-22 02:08 | Emergency Department Report ---
ED General Adult HPI - General Chief complaint: Abdominal Pain Stated complaint: DIZZY/BODY PAIN /STOMACH PAIN Time Seen by Provider: 09/22/19 01:43 Source: patient Mode of arrival: Ambulatory Limitations: No Limitations - History of Present Illness Initial comments: This is a 34-year-old -H[place] female who presents to the emergency room with fatigue for 3 days. Past medical history of epilepsy, anemia, morbid obesity, and migraines. Patient states her primary care doctor at [facility] increased her Keppra and Tegretol 2 weeks ago. Patient states she did start taking the new dose until Friday. She reports feeling sleepy and tir ed for the past 2-3 days since starting medication. Patient states she has attempted to make an appointment with her PCP and not successful. She denies chest pain, palpitations, nausea, vomiting, fever, chills, weakness. Onset/Timin -: days(s) Consistency: constant Improves with: rest Worsens with: none Associated Symptoms: denies other symptoms Treatments Prior to Arrival: none - Related Data Home Medications Medication Instructions Recorded Confirmed Last Taken carBAMazepine [TEGretol] 200 mg PO Q8HR 12/06/14 07/26/18 08/30/15 21:00 levETIRAcetam [Keppra XR TAB] 500 mg PO TID 08/05/15 07/26/18 08/30/15 21:00 Ibuprofen [Motrin 600 MG tab] 800 mg PO Q8H PRN 07/26/18 07/26/18 Unknown Previous Rx's Medication Instructions Recorded Last Taken Type Cyclobenzaprine [Flexeril] 10 mg PO QHS PRN #10 tablet 09/14/18 Unknown Rx Ibuprofen [Motrin] 600 mg PO Q8H PRN #20 tablet 09/14/18 Unknown Rx Ondansetron [Zofran Odt] 4 mg PO Q6H PRN #20 tab.rapdis 10/02/18 Unknown Rx traMADoL [Ultram 50 MG tab] 50 mg PO Q6HR PRN #12 tablet 10/02/18 Unknown Rx Benzonatate [Tessalon Perles] 100 mg PO Q8HR PRN #30 capsule 11/30/18 Unknown Rx Fluticasone [Flonase] 1 spray NS QDAY #1 bottle 11/30/18 Unknown Rx Guaifenesin/Phenylephrine HCl 1 each PO Q6H #20 tablet 11/30/18 Unknown Rx [Chest-Sinus Congst Rlf Tablet] Ibuprofen [Motrin] 600 mg PO Q8H PRN #30 tablet 07/07/19 Unknown Rx Metoclopramide [Reglan] 10 mg PO QID PRN #30 tablet 07/07/19 Unknown Rx Allergies Allergy/AdvReac Type Severity Reaction Status Date / Time amoxicillin [Amoxicillin] Allergy Swelling Verified 07/07/17 10:41 ED Review of Systems ROS: Stated complaint: DIZZY/BODY PAIN /STOMACH PAIN Other details as noted in HPI Constitutional: other (fatigue). denies: chills, fever Respiratory: denies: cough, shortness of breath, wheezing Cardiovascular: denies: chest pain, palpitations Endocrine: no symptoms reported Gastrointestinal: denies: abdominal pain, nausea, diarrhea Musculoskeletal: denies: back pain, joint swelling, arthralgia Skin: denies: rash, lesions Neurological: denies: headache, weakness, paresthesias Psychiatric: denies: anxiety, depression ED Past Medical Hx - Past Medical History Previous Medical History?: Yes Hx CVA: Yes (patient states that it was not a CVA but seizures that caused her symptoms ) Hx Headaches / Migraines: Yes Hx Seizures: Yes (episode of Yao's paralysis) Additional medical history: OBESITY - Surgical History Past Surgical History?: No - Social History Smoking Status: Never Smoker Substance Use Type: None - Medications Home Medications: Home Medications Medication Instructions Recorded Confirmed Last Taken Type carBAMazepine [TEGretol] 200 mg PO Q8HR 12/06/14 07/26/18 08/30/15 21:00 History levETIRAcetam [Keppra XR TAB] 500 mg PO TID 08/05/15 07/26/18 08/30/15 21:00 History Ibuprofen [Motrin 600 MG tab] 800 mg PO Q8H PRN 07/26/18 07/26/18 Unknown History Cyclobenzaprine [Flexeril] 10 mg PO QHS PRN #10 tablet 09/14/18 Unknown Rx Ibuprofen [Motrin] 600 mg PO Q8H PRN #20 tablet 09/14/18 Unknown Rx Ondansetron [Zofran Odt] 4 mg PO Q6H PRN #20 tab.rapdis 10/02/18 Unknown Rx traMADoL [Ultram 50 MG tab] 50 mg PO Q6HR PRN #12 tablet 10/02/18 Unknown Rx Benzonatate [Tessalon Perles] 100 mg PO Q8HR PRN #30 capsule 11/30/18 Unknown Rx Fluticasone [Flonase] 1 spray NS QDAY #1 bottle 11/30/18 Unknown Rx Guaifenesin/Phenylephrine HCl 1 each PO Q6H #20 tablet 11/30/18 Unknown Rx [Chest-Sinus Congst Rlf Tablet] Ibuprofen [Motrin] 600 mg PO Q8H PRN #30 tablet 07/07/19 Unknown Rx Metoclopramide [Reglan] 10 mg PO QID PRN #30 tablet 07/07/19 Unknown Rx ED Physical Exam - General Limitations: No Limitations General appearance: alert, in no apparent distress, obese (morbidly) - Respiratory Respiratory exam: Present: normal lung sounds bilaterally. Absent: respiratory distress - Cardiovascular Cardiovascular Exam: Present: regular rate, normal rhythm. Absent: systolic murmur, diastolic murmur, rubs, gallop - GI/Abdominal GI/Abdominal exam: Present: soft, normal bowel sounds. Absent: distended, tenderness, guarding, rebound, rigid - Neurological Exam Neurological exam: Present: alert, oriented X3 - Psychiatric Psychiatric exam: Present: normal affect, normal mood - Skin Skin exam: Present: warm, dry, intact, normal color. Absent: rash ED Course Vital Signs 09/22/19 00:08 Temperature 98.2 F Pulse Rate 65 Respiratory 20 Rate Blood Pressure 144/83 O2 Sat by Pulse 100 Oximetry ED Medical Decision Making - Lab Data Result diagrams: 09/22/19 00:25 09/22/19 00:25 Lab Results 09/22/19 09/22/19 Range/Units 00:25 00:25 WBC 6.7 (4.5-11.0) K/mm3 RBC 4.37 (3.65-5.03) M/mm3 Hgb 9.6 L (10.1-14.3) gm/dl Hct 30.9 (30.3-42.9) % MCV 71 L (79-97) fl MCH 22 L (28-32) pg MCHC 31 (30-34) % RDW 19.1 H (13.2-15.2) % Plt Count 293 (140-440) K/mm3 Lymph % (Auto) Singing Telegram Performer Burnett % (Auto) Singing Telegram Performer Eos % (Auto) Singing Telegram Performer Baso % (Auto) Singing Telegram Performer Lymph # Singing Telegram Performer Burnett # Singing Telegram Performer Eos # Singing Telegram Performer Baso # Singing Telegram Performer Seg Neutrophils % Singing Telegram Performer Seg Neutrophils # Singing Telegram Performer Sodium 137 (137-145) mmol/L Potassium 3.9 (3.6-5.0) mmol/L Chloride 102.9 (98-107) mmol/L Carbon Dioxide 23 (22-30) mmol/L Anion Gap 15 mmol/L BUN 9 (7-17) mg/dL Creatinine 0.8 (0.7-1.2) mg/dL Estimated GFR > 60 ml/min BUN/Creatinine Ratio 11 % Glucose 88 (65-100) mg/dL Calcium 8.3 L (8.4-10.2) mg/dL Total Bilirubin < 0.20 (0.1-1.2) mg/dL AST 12 (5-40) units/L ALT 7 (7-56) units/L Alkaline Phosphatase 80 (35-129) units/L Total Protein 7.4 (6.3-8.2) g/dL Albumin 3.9 (3.9-5) g/dL Albumin/Globulin Ratio 1.1 % - Medical Decision Making Patient was examined by me. Patient is nontoxic appearing and stable. Past medical history of epilepsy, anemia, migraines, and morbid obesity. Vitals are normal. Obtained labs. There is mild anemia, which patient as per a history and followed by [facility]. All other labs are unremarkable. Normal focal exam. Patient instructed to follow-up with her primary care doctor today at [facility] for referral to neurology. Patient informed of emergency room plan and agrees. Follow up with PCP or return to the ER with worsening sym ptoms. Patient discharged home in stable condition. Critical care attestation.: If time is entered above; I have spent that time in minutes in the direct care of this critically ill patient, excluding procedure time. ED Disposition Clinical Impression: Fatigue Qualifiers: Fatigue type: unspecified Qualified Code(s): R53.83 - Other fatigue Disposition: DC-01 TO HOME OR SELFCARE Is pt being admited?: No Condition: Stable Instructions: Abdominal Pain (ED), Fatigue (ED) Additional Instructions: Follow-up with your primary care doctor at [facility] for a list of neurologists to follow-up with. Return to the emergency room if worsening sympt oms. Referrals: [facility] [Provider Group] - 3-5 Days ISABEL PEARSON MD [Staff Physician] - 3-5 Days MILADIS HOLBROOK MD [Referring] - 3-5 Days Forms: Work/School Release Form(ED) Time of Disposition: 02:55
== END 2019-09-22 03:05 | disposition home or self-care (01) ==
LOC: ED 23:23
DX: R53.83 Other fatigue (principal); I63.9 Cerebral infarction, unspecified; G43.909 Migraine, unspecified, not intractable, without status migrainosus; R56.9 Unspecified convulsions; Z79.1 Long term (current) use of non-steroidal anti-inflammatories (NSAID); Z79.899 Other long term (current) drug therapy; Z88.1 Allergy status to other antibiotic agents
CPT/HCPCS: 36415; 80053; 85025

== ENCOUNTER 2020-01-17 18:05 | Emergency (ER) | payer OTHER ==
--- NOTE | 2020-01-17 18:23 | Emergency Department Report ---
Blank Doc - Documentation Documentation: 34-year-old female that presents with chest pain with radiation to left arm and back. Denies any SOB. This initial assessment/diagnostic orders/clinical plan/treatment(s) is/are subject to change based on patient's health status, clinical progression and re- assessment by fellow clinical providers in the ED. Further treatment and workup at subsequent clinical providers discretion. Patient/guardians urged not to elope from the ED as their condition may be serious if not clinically assessed and managed. Initial orders include: 1- Patient sent to [facility] for further evaluation and treatment 2- cardiac workup
[2020-01-17 18:45] LABS: Hematocrit 27.2 % (30.3-42.9); Hemoglobin 8.3 gm/dl (10.1-14.3); Mean Corpuscular HGB Conc 31 % (30-34); Platelet Count 315 K/mm3 (140-440); Red Blood Count 4.06 M/mm3 (3.65-5.03)
[2020-01-17 18:51] LABS: Mean Corpuscular Volume 67 fl (79-97)
[2020-01-17 18:56] LABS: INR 1.11 (0.87-1.13); Partial Thromboplastin Time 29.1 Sec. (24.2-36.6)
[2020-01-17 19:07] LABS: Albumin 3.7 g/dL (3.9-5); BUN/Creatinine Ratio 14; Blood Urea Nitrogen 10 mg/dL (7-17); Calcium 8.6 mg/dL (8.4-10.2); Hemolysis Index 0
[2020-01-17 19:23] LABS: Alanine Aminotransferase < 5 units/L (7-56)
[2020-01-17 19:33] LABS: Anisocytosis 1+; Hypochromasia 1+; Total Cells Counted 100
--- NOTE | 2020-01-17 19:45 | XRay Report ---
CHEST PA AND LATERAL VIEWS INDICATION: Chest Pain. COMPARISON: 02/17/2019 FINDINGS: Support devices: None. Heart: Within normal limits. Lungs/Pleura: No acute pulmonary or pleural findings. IMPRESSION: 1. No acute findings. Signer Name: Humphrey Castaneda MD Signed: 01/17/2020 7:41 PM Workstation Name: [id number]
[2020-01-17] MEDS ORDERED: HYDROcodone/ACETAMINOPHEN 5-325 MG TAB PO STA (20:59)
[2020-01-17] MEDS ORDERED: KETOROLAC 60 MG/2 ML INJ IM STA (20:59)
--- NOTE | 2020-01-17 21:11 | Emergency Department Report ---
ED General Adult HPI - General Chief complaint: Chest Pain Stated complaint: LEFT ARM PAIN/CP/SHOULDER PAIN Time Seen by Provider: 01/17/20 18:21 Source: patient Mode of arrival: Ambulatory Limitations: No Limitations - History of Present Illness Initial comments: 34-year-old morbidly obese -[place]ian female presents emergency department complaining of pain to the mid chest that worsens with range of motion deep breaths and shoulder movement. Reports no hemoptysis no hematemesis no fever, chills, sweats or palpitation no nausea vomiting -: Gradual, days(s) (3) Radiation: back Quality: sharp Improves with: none Worsens with: movement Associated Symptoms: chest pain. denies: fever/chills, loss of appetite, malaise - Related Data Home Medications Medication Instructions Recorded Confirmed Last Taken carBAMazepine [TEGretol] 200 mg PO Q8HR 12/06/14 07/26/18 08/30/15 21:00 levETIRAcetam [Keppra XR TAB] 500 mg PO TID 08/05/15 07/26/18 08/30/15 21:00 Ibuprofen [Motrin 600 MG tab] 800 mg PO Q8H PRN 07/26/18 07/26/18 Unknown Previous Rx's Medication Instructions Recorded Last Taken Type Cyclobenzaprine [Flexeril] 10 mg PO QHS PRN #10 tablet 09/14/18 Unknown Rx Ibuprofen [Motrin] 600 mg PO Q8H PRN #20 tablet 09/14/18 Unknown Rx Ondansetron [Zofran Odt] 4 mg PO Q6H PRN #20 tab.rapdis 10/02/18 Unknown Rx traMADoL [Ultram 50 MG tab] 50 mg PO Q6HR PRN #12 tablet 10/02/18 Unknown Rx Benzonatate [Tessalon Perles] 100 mg PO Q8HR PRN #30 capsule 11/30/18 Unknown Rx Fluticasone [Flonase] 1 spray NS QDAY #1 bottle 11/30/18 Unknown Rx Guaifenesin/Phenylephrine HCl 1 each PO Q6H #20 tablet 11/30/18 Unknown Rx [Chest-Sinus Congst Rlf Tablet] Ibuprofen [Motrin] 600 mg PO Q8H PRN #30 tablet 07/07/19 Unknown Rx Metoclopramide [Reglan] 10 mg PO QID PRN #30 tablet 07/07/19 Unknown Rx Ketorolac [Toradol] 10 mg PO Q6H PRN #10 tablet 01/17/20 Unknown Rx Allergies Allergy/AdvReac Type Severity Reaction Status Date / Time amoxicillin [Amoxicillin] Allergy Swelling Verified 07/07/17 10:41 ED Review of Systems ROS: Stated complaint: LEFT ARM PAIN/CP/SHOULDER PAIN Other details as noted in HPI Comment: All other systems reviewed and negative ED Past Medical Hx - Past Medical History Previous Medical History?: Yes Hx CVA: Yes (patient states that it was not a CVA but seizures that caused her symptoms ) Hx Headaches / Migraines: Yes Hx Seizures: Yes (episode of Yao's paralysis) Additional medical history: OBESITY - Surgical History Past Surgical History?: No - Social History Smoking Status: Never Smoker Substance Use Type: Alcohol - Medications Home Medications: Home Medications Medication Instructions Recorded Confirmed Last Taken Type carBAMazepine [TEGretol] 200 mg PO Q8HR 12/06/14 07/26/18 08/30/15 21:00 History levETIRAcetam [Keppra XR TAB] 500 mg PO TID 08/05/15 07/26/18 08/30/15 21:00 History Ibuprofen [Motrin 600 MG tab] 800 mg PO Q8H PRN 07/26/18 07/26/18 Unknown History Cyclobenzaprine [Flexeril] 10 mg PO QHS PRN #10 tablet 09/14/18 Unknown Rx Ibuprofen [Motrin] 600 mg PO Q8H PRN #20 tablet 09/14/18 Unknown Rx Ondansetron [Zofran Odt] 4 mg PO Q6H PRN #20 tab.rapdis 10/02/18 Unknown Rx traMADoL [Ultram 50 MG tab] 50 mg PO Q6HR PRN #12 tablet 10/02/18 Unknown Rx Benzonatate [Tessalon Perles] 100 mg PO Q8HR PRN #30 capsule 11/30/18 Unknown Rx Fluticasone [Flonase] 1 spray NS QDAY #1 bottle 11/30/18 Unknown Rx Guaifenesin/Phenylephrine HCl 1 each PO Q6H #20 tablet 11/30/18 Unknown Rx [Chest-Sinus Congst Rlf Tablet] Ibuprofen [Motrin] 600 mg PO Q8H PRN #30 tablet 07/07/19 Unknown Rx Metoclopramide [Reglan] 10 mg PO QID PRN #30 tablet 07/07/19 Unknown Rx Ketorolac [Toradol] 10 mg PO Q6H PRN #10 tablet 01/17/20 Unknown Rx ED Physical Exam - General Limitations: No Limitations General appearance: alert, in no apparent distress - Head Head exam: Present: atraumatic, normocephalic - Eye Eye exam: Present: normal appearance, PERRL, EOMI - ENT ENT exam: Present: mucous membranes moist - Neck Neck exam: Present: normal inspection, full ROM - Respiratory Respiratory exam: Present: normal lung sounds bilaterally, chest wall tenderness (Tenderness along the sternal border with palpation with opposed adduction as well. No crepitus no ellipses or thrills. No subcutaneous emphysema noted.). Absent: respiratory distress, wheezes, rhonchi - Cardiovascular Cardiovascular Exam: Present: regular rate, normal rhythm. Absent: systolic murmur, diastolic murmur, rubs, gallop - GI/Abdominal GI/Abdominal exam: Present: soft, normal bowel sounds - Extremities Exam Extremities exam: Present: normal inspection - Back Exam Back exam: Present: normal inspection. Absent: CVA tenderness (R), CVA tenderness (L) - Neurological Exam Neurological exam: Present: alert, oriented X3, CN II-XII intact, normal gait. Absent: motor sensory deficit, reflexes normal - Psychiatric Psychiatric exam: Present: normal affect, normal mood. Absent: flat affect, manic, homicidal ideation - Skin Skin exam: Present: warm, dry, intact, normal color. Absent: rash, diaphoretic, erythema, petechiae, pallor, ecchymosis ED Course Vital Signs 01/17/20 01/17/20 18:12 22:12 Temperature 98.0 F 98.2 F Pulse Rate 67 54 L Respiratory 22 18 Rate Blood Pressure 163/94 Blood Pressure 137/75 [Right] O2 Sat by Pulse 98 98 Oximetry ED Medical Decision Making - Lab Data Result diagrams: 01/17/20 18:34 01/17/20 18:34 - Radiology Data Radiology results: report reviewed Referring Physician:TL SEGURAPatient Name:JANET WILLIAMPatient ID:[id number] of :[id number]:FemaleAccession:[id number] Date:[id number] Status:Finalized Findings [facility] [address] [place] [address] XRay Report Signed Patient: JANET WILLIAM MR#: [id number] : 1985 Acct:[id number] Age/Sex: 34 / F ADM Date: 01/17/20 Loc: ED Attending Dr: Ordering Physician: TL SEGURA NP Date of Service: 01/17/20 Procedure(s): XR chest routine 2V Accession Number(s): [id number] cc: TL SEGURA NP Fluoro Time In Minutes: CHEST PA AND LATERAL VIEWS INDICATION: Chest Pain. COMPARISON: 02/17/2019 FINDINGS: Support devices: None. Heart: Within normal limits. Lungs/Pleura: No acute pulmonary or pleural findings. IMPRESSION: 1. No acute findings. Signer Name: Humphrey Castaneda MD Signed: 01/17/2020 7:41 PM Workstation Name: [email or web address] Transcribed By: VIOLETA Dictated By: Humphrey Castaneda MD Electronically Authenticated By: Humphrey Castaneda MD Signed Date/Time: 01/17/201940 DD/ 39 TD/TT: - Medical Decision Making This patient presents with chest pain that is very unlikely angina or acute coronary syndrome. The emergency department evaluation has not identified any cause for suspicion that this chest pain has a cardiac etiology. Based on their history, EKG (which showed no evidence of ischemia or infarction) and imaging, in addition to the patient's physical exam, I see no evidence at this time for a malignant etiology for the patient's chest pain. There is no acute evidence for pulmonary embolus, acute myocardial infarction, pneumothorax, Boerhaeve syndrome, cardiac tamponade, thoracic artery dissection, or any other emergent cardiac, pulmonary or aortic pathology. Given the low pre-test probability for cardiac etiology of chest pain and the absence of any sign of ischemia or infarction, discharge for outpatient follow-up and further evaluation is reasonable. I have explained to the patient that even though a cardiac problem is very unlikely, follow-up and further testing is required to reduce further the already small uncertainty that exists. Other life-threatening diagnoses have been considered. The patient understands the need to return immediately if their symptoms worsen or they develop any new symptoms, and not to engage in any significant exertional activity until follow-up is obtained. Critical care attestation.: If time is entered above; I have spent that time in minutes in the direct care of this critically ill patient, excluding procedure time. ED Disposition Clinical Impression: Chest pain, musculoskeletal Disposition: DC-01 TO HOME OR SELFCARE Is pt being admited?: No Does the pt Need Aspirin: No Condition: Stable Instructions: Chest Pain (ED), Costochondritis (ED) Prescriptions: Ketorolac [Toradol] 10 mg PO Q6H PRN #10 tablet PRN Reason: Pain Referrals: PRIMARY CARE, [Primary Care Provider] - 3-5 Days [facility] [Provider Group] - 3-5 Days
[2020-01-17 22:13] VITALS: BP 137/75
== END 2020-01-17 22:12 | disposition home or self-care (01) ==
LOC: ED 18:05
DX: R07.89 Other chest pain (principal); G43.909 Migraine, unspecified, not intractable, without status migrainosus; Z88.0 Allergy status to penicillin; Z79.899 Other long term (current) drug therapy
CPT/HCPCS: 36415; 71046; 80053; 84484; 84703; 85007; 85025; 85610; 85730; 93005; 93010; 96372; 99284; J1885

== ENCOUNTER 2021-01-29 13:54 | Emergency (ER) | payer OTHER ==
--- NOTE | 2021-01-29 15:09 | Event Note ---
ED Screening Note ED Screening Note: states she had had a headache for three weeks states she was taking 800 mg ibuprofen, then aleve states she intermittently has left side numbness of the hand and arm over the last three weeks +photophobia +nausea no vomiting, diarrhea, no fever states occasionally her right eye feels blurry pmhx seizure takes tegretol and keppra, hasnt had a seizure in a year allergy: amoxicillin LNMP: 01/26/2021 This initial assessment/diagnostic orders/clinical plan/treatment(s) is/are subject to change based on patients health status, clinical progression and re- assessment by fellow clinical providers in the ED. Further treatment and workup at subsequent clinical providers discretion. Patient/guardian urged not to elope from the ED as their condition may be serious if not clinically assessed and managed. Initial orders include: labs, CT head
[2021-01-29 15:34] LABS: Hemoglobin 7.8 gm/dl (10.1-14.3); Mean Corpuscular HGB Conc 31 % (30-34); Platelet Count 348 K/mm3 (140-440); Red Blood Count 3.92 M/mm3 (3.65-5.03)
[2021-01-29 15:52] LABS: Mean Corpuscular Volume 64 fl (79-97); Red Cell Distribution Width 20.8 % (13.2-15.2)
--- NOTE | 2021-01-29 15:58 | Emergency Department Report ---
ED Headache HPI - General Chief Complaint: Headache Stated Complaint: LT SIDE NUMBNESS/HEADACHE/CAN'T SEE Time Seen by Provider: 01/29/21 15:07 - History of Present Illness Initial Comments: 35-year-old morbid obese -[place] female presents to the emergency room stating she is has had a intermittent headache for the last 3 weeks. Patient admits to photophobia, nausea, left upper extremity intermittent weakness. Patient has a history of seizures and is currently on Tegretol and Keppra but not had a seizure in a year. She states she is taking ibuprofen 800 mg and then tried Aleve with no relief of her headache. Patient reports that she had a fall 1 month ago and has neck pain. Timing/Duration: other (3 weeks) Quality: severe Head Injury Location: global Recent Head Trauma: no recent headache/trauma Modifying Factors: improves with: exposure to light Associated Symptoms: nausea/vomiting (Nausea no vomiting), vision changes (Blurred vision), other (Numbness left upper extremity). denies: fatigue, facial pain, fever/chills, flushing, loss of consciousness, nasal congestion, nasal drainage, stiff neck Allergies/Adverse Reactions: Allergies amoxicillin [Amoxicillin] Allergy (Verified 01/29/21 14:08) Swelling Home Medications: Ambulatory Orders carBAMazepine [TEGretol] 200 mg PO Q8HR 12/06/14 levETIRAcetam [Keppra XR TAB] 500 mg PO TID 08/05/15 Ibuprofen [Motrin 600 MG tab] 800 mg PO Q8H PRN 07/26/18 Cyclobenzaprine [Flexeril] 10 mg PO QHS PRN #10 tablet 09/14/18 Ibuprofen [Motrin] 600 mg PO Q8H PRN #20 tablet 09/14/18 Ondansetron [Zofran Odt] 4 mg PO Q6H PRN #20 tab.rapdis 10/02/18 traMADoL [Ultram 50 MG tab] 50 mg PO Q6HR PRN #12 tablet 10/02/18 Benzonatate [Tessalon Perles] 100 mg PO Q8HR PRN #30 capsule 11/30/18 Fluticasone [Flonase] 1 spray NS QDAY #1 bottle 11/30/18 Guaifenesin/Phenylephrine HCl [Chest-Sinus Congst Rlf Tablet] 1 each PO Q6H #20 tablet 11/30/18 Ibuprofen [Motrin] 600 mg PO Q8H PRN #30 tablet 07/07/19 Metoclopramide [Reglan] 10 mg PO QID PRN #30 tablet 07/07/19 Ketorolac [Toradol] 10 mg PO Q6H PRN #10 tablet 01/17/20 ED Review of Systems ROS: Stated complaint: LT SIDE NUMBNESS/HEADACHE/CAN'T SEE Other details as noted in HPI Comment: All other systems reviewed and negative ED Past Medical Hx - Past Medical History Hx CVA: Yes (patient states that it was not a CVA but seizures that caused her symptoms ) Hx Headaches / Migraines: Yes Hx Seizures: Yes (episode of Yao's paralysis) Additional medical history: OBESITY - Surgical History Past Surgical History?: No - Social History Smoking Status: Never Smoker Substance Use Type: Alcohol - Medications Home Medications: Home Medications Medication Instructions Recorded Confirmed Last Taken Type carBAMazepine [TEGretol] 200 mg PO Q8HR 12/06/14 07/26/18 08/30/15 21:00 History levETIRAcetam [Keppra XR TAB] 500 mg PO TID 08/05/15 07/26/18 08/30/15 21:00 History Ibuprofen [Motrin 600 MG tab] 800 mg PO Q8H PRN 07/26/18 07/26/18 Unknown History Cyclobenzaprine [Flexeril] 10 mg PO QHS PRN #10 tablet 09/14/18 Unknown Rx Ibuprofen [Motrin] 600 mg PO Q8H PRN #20 tablet 09/14/18 Unknown Rx Ondansetron [Zofran Odt] 4 mg PO Q6H PRN #20 tab.rapdis 10/02/18 Unknown Rx traMADoL [Ultram 50 MG tab] 50 mg PO Q6HR PRN #12 tablet 10/02/18 Unknown Rx Benzonatate [Tessalon Perles] 100 mg PO Q8HR PRN #30 capsule 11/30/18 Unknown Rx Fluticasone [Flonase] 1 spray NS QDAY #1 bottle 11/30/18 Unknown Rx Guaifenesin/Phenylephrine HCl 1 each PO Q6H #20 tablet 11/30/18 Unknown Rx [Chest-Sinus Congst Rlf Tablet] Ibuprofen [Motrin] 600 mg PO Q8H PRN #30 tablet 07/07/19 Unknown Rx Metoclopramide [Reglan] 10 mg PO QID PRN #30 tablet 07/07/19 Unknown Rx Ketorolac [Toradol] 10 mg PO Q6H PRN #10 tablet 01/17/20 Unknown Rx ED Physical Exam - General Limitations: No Limitations General appearance: alert, other (Wearing sunglasses) - Eye Eye exam: Present: PERRL. Absent: scleral icterus, periorbital swelling, periorbital tenderness - ENT ENT exam: Present: mucous membranes moist, normal external ear exam - Neck Neck exam: Present: tenderness, full ROM. Absent: meningismus - Respiratory Respiratory exam: Present: normal lung sounds bilaterally. Absent: accessory muscle use - Cardiovascular Cardiovascular Exam: Present: regular rate - GI/Abdominal GI/Abdominal exam: Present: soft, normal bowel sounds - Expanded Neurological Exam Expanded Patient oriented to: Present: person, place, time Cranial nerves: EOM's Intact: Normal, Gag Reflex: Normal, Tongue Deviation: Normal, Nystagmus: Normal, Facial Sensation: Normal, Facial Palsy with Forehead Movement: Normal, Facial Palsy without Forehead Movement: Normal Cerebellar function: Finger to Nose: Abnormal Left, Heel to Martinez: Normal, Romberg: Normal Upper motor neuron: Joaquín Neglect: Normal, Pronator Drift: Normal, Sensory Extinction: Normal Sensory exam: Upper Extremity Light Touch: Normal, Upper Extremity Pin Prick: Normal, Upper Extremity Temperature: Normal, UE 2 Point Discrimination: Normal, Lower Extremity Light Touch: Normal, Lower Extremity Pin Prick: Normal, Lower Extremity Temperature: Normal, LE 2 Point Discrimination: Normal Motor strength exam: 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 Absent: rash ED Course Vital Signs 01/29/21 01/29/21 14:11 15:46 Temperature 98.3 F Pulse Rate 71 64 Respiratory 20 15 Rate Blood Pressure 123/60 109/51 O2 Sat by Pulse 100 99 Oximetry ED Medical Decision Making - Lab Data Result diagrams: 01/29/21 15:19 01/29/21 15:19 - Radiology Data Radiology results: report reviewed [address] [address] Cat Scan Report Signed Patient: JANET WILLIAM MR#: [id number] : 1985 Acct:[id number] Age/Sex: 35 / F ADM Date: 01/29/21 Loc: ED Attending Dr: Ordering Physician: SHANNAN HERRMANN Date of Service: 01/29/21 Procedure(s): CT head/brain wo con Accession Number(s): [id number] cc: SHANNAN HERRMANN CT head/brain wo con INDICATION: headache, intermittent LUE numbness. TECHNIQUE: Routine CT head without contrast. All CT scans at this location are performed using CT dose reduction for ALARA by means of automated exposure control. COMPARISON: None. FINDINGS: BRAIN / INTRACRANIAL CONTENTS: No acute hemorrhage, mass effect, midline shift, or hydrocephalus. No appreciable acute large territorial or lacunar infarct. No chronic infarct or focal atrophy. Normal brain volume and ventricular/sulcal size for age. ORBITS: No significant abnormality of visualized orbits. SINUSES / MASTOIDS: No significant abnormality of visualized sinuses and mastoid air cells. ADDITIONAL FINDINGS: None. IMPRESSION: 1. No acute intracranial abnormality. Signer Name: Milan Estrada MD Signed: 01/29/2021 4:15 PM Workstation Name: [id number] Transcribed By: ALLIE Dictated By: Milan Estrada MD Electronically Authenticated By: Milan Estrada MD Signed Date/Time: 01/29/21 1615 DD/ 11 TD/TT: Print Cancel My Comment(s) Study Comments [address] [address] Cat Scan Report Signed Patient: JANET WILLIAM MR#: [id number] : 1985 Acct:[id number] Age/Sex: 35 / F ADM Date: 01/29/21 Loc: ED Attending Dr: Ordering Physician: SHANNAN HESS Date of Service: 01/29/21 Procedure(s): CT cervical spine wo con Accession Number(s): [id number] cc: SHANNAN HESS CT CERVICAL SPINE WITHOUT CONTRAST INDICATION: Cervical pain status post fall 1 month ago. TECHNIQUE: Axial CT images of the spine were obtained. Sagittal and coronal reformatted images were produced. All CT scans at this location are performed using CT dose reduction for ALARA by means of automated exposure control. COMPARISON: None available. FINDINGS: ACUTE FRACTURE(S) OR SUBLUXATION: None. SPINAL DEGENERATIVE CHANGES: No significant degenerative changes. PARASPINAL SOFT TISSUES: No soft tissue swelling or other acute abnormalities. ADDITIONAL FINDINGS: No significant additional findings. IMPRESSION: 1. No acute fracture or subluxation in the spine in neutral position. Signer Name: Milan Estrada MD Signed: 01/29/2021 4:17 PM Workstation Name: [id number] Transcribed By: ALLIE Dictated By: Milan Estrada MD Electronically Authenticated By: Milan Estrada MD Signed Date/Time: 01/29/211616 DD/ 14 TD/TT: - Medical Decision Making 35-year-old morbid obese -[place] female presents to the emergency room stating she is has had a intermittent headache for the last 3 weeks. Patient admits to photophobia, nausea, left upper extremity intermittent weakness. Patient has a history of seizures and is currently on Tegretol and Keppra but not had a seizure in a year. She states she is taking ibuprofen 800 mg and then tried Aleve with no relief of her headache. Patient reports that she had a fall 1 month ago and has neck pain. Basic labs with CK and magnesium, CT of head and neck. Critical care attestation.: If time is entered above; I have spent that time in minutes in the direct care of this critically ill patient, excluding procedure time. ED Disposition Clinical Impression: Headache Disposition: DC-01 TO HOME OR SELFCARE Is pt being admited?: No Does the pt Need Aspirin: No Condition: Stable Instructions: Migraine Headache, [id number]-[id number] Additional Instructions: Labs are stable, CTs are negative for any acute abnormalities. Please continue with ibuprofen and Aleve as needed for your headaches. Follow-up with your neurologist. Referrals: Your, neurologist and primary care provider [Other] - 3-5 Days Forms: Work/School Release Form(ED)
[2021-01-29 16:04] LABS: Alanine Aminotransferase 6 units/L (7-56); Albumin 3.8 g/dL (3.9-5); Blood Urea Nitrogen 11 mg/dL (7-17); Calcium 8.4 mg/dL (8.4-10.2); Hemolysis Index 2
[2021-01-29 16:07] LABS: BUN/Creatinine Ratio 16
[2021-01-29] MEDS ORDERED: ACETAMINOPHEN 500 MG TAB PO ONE (16:18)
--- NOTE | 2021-01-29 16:19 | Cat Scan Report ---
CT head/brain wo con INDICATION: headache, intermittent LUE numbness. TECHNIQUE: Routine CT head without contrast. All CT scans at this location are performed using CT dos e reduction for ALARA by means of automated exposure control. COMPARISON: None. FINDINGS: BRAIN / INTRACRANIAL CONTENTS: No acute hemorrhage, mass effect, midline shift, or hydrocephalus. No appreciable acute large territorial or lacunar infarct. No chronic infarct or focal atrophy. Normal b rain volume and ventricular/sulcal size for age. ORBITS: No significant abnormality of visualized orbits. SINUSES / MASTOIDS: No significant abnormality of visualized sinuses and mastoid air cells. ADDITIONAL FINDINGS: None. IMPRESSION: 1. No acute intracranial abnormality. Signer Name: Milan Estrada MD Signed: 01/29/2021 4:15 PM Workstation Name: [id number]
--- NOTE | 2021-01-29 16:21 | Cat Scan Report ---
CT CERVICAL SPINE WITHOUT CONTRAST INDICATION: Cervical pain status post fall 1 month ago. TECHNIQUE: Axial CT images of the spine were obtained. Sagittal and coronal reformatted images were produced. Al l CT scans at this location are performed using CT dose reduction for ALARA by means of automated exp osure control. COMPARISON: None available. FINDINGS: ACUTE FRACTURE(S) OR SUBLUXATION: None. SPINAL DEGENERATIVE CHANGES: No significant degenerative changes. PARASPINAL SOFT TISSUES: No soft tissue swelling or other acute abnormalities. ADDITIONAL FINDINGS: No significant additional findings. IMPRESSION: 1. No acute fracture or subluxation in the spine in neutral position. Signer Name: Milan Estrada MD Signed: 01/29/2021 4:17 PM Workstation Name: [id number]
[2021-01-29] MEDS ORDERED: dexAMETHasone 20 MG/5 ML VIAL IV ONE (16:26)
[2021-01-29] MEDS ORDERED: diphenhydrAMINE 50 MG/ML VIAL IV ONE (16:26)
[2021-01-29] MEDS ORDERED: KETOROLAC 30 MG/1 ML INJ IV ONE (16:26)
[2021-01-29] MEDS ORDERED: METOCLOPRAMIDE 10 MG/2 ML INJ IV ONE (16:27)
[2021-01-29] MEDS ORDERED: diphenhydrAMINE 50 MG/ML VIAL IM ONE (17:12)
[2021-01-29] MEDS ORDERED: METOCLOPRAMIDE 10 MG/2 ML INJ IM ONE (17:12)
[2021-01-29] MEDS ORDERED: dexAMETHasone 20 MG/5 ML VIAL IM ONE (17:12)
[2021-01-29] MEDS ORDERED: KETOROLAC 30 MG/1 ML INJ IM ONE (17:12)
[2021-01-29 18:10] VITALS: BP 128/68
[2021-01-29 18:55] LABS: Anisocytosis 1+; Hypochromasia 2+; Total Cells Counted 100
[2021-01-29 19:00] LABS: Large Platelets Rare; Ovalocytes Rare; Tear Drop Cells Rare
[2021-01-29 19:01] LABS: Platelet Estimate Consistent w Auto
== END 2021-01-29 18:10 | disposition home or self-care (01) ==
LOC: ED 13:54
DX: G43.909 Migraine, unspecified, not intractable, without status migrainosus (principal); G40.909 Epilepsy, unspecified, not intractable, without status epilepticus; Z79.899 Other long term (current) drug therapy
CPT/HCPCS: 36415; 70450; 72125; 80053; 82550; 83735; 84703; 85007; 85025; 96372; 99284; J1100; J1200; J1885

== ENCOUNTER 2021-04-23 18:07 | Emergency (ER) | payer OTHER ==
[2021-04-23 19:59] VITALS: BP 149/85
--- NOTE | 2021-04-23 20:22 | Event Note ---
ED Screening Note Date of service: 04/23/21 Time: 20:18 ED Screening Note: 35-year-old female presents to the ER today with complaints of syncope and abnormal vaginal bleeding. Patient states that she started her menstrual cycle 3 weeks ago and she is still bleeding. She states that the bleeding has been heavy for the past 3 weeks with associated clots. She states that she has been changing on average about 20 pads per day. 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 She has known history of uterine fibroids. Her OFFICIAL COURT INTERPRETER is Dr. Ontiveros and there is discussion of having a hysterectomy but a date has not been set yet. She states that she was given iron infusions in March. Currently she is just on oral iron supplements. Medical history significant for seizure disorder, anemia, uterine fibroids This initial assessment/diagnostic orders/clinical plan/treatment(s) is/are subject to change based on patients health status, clinical progression and re- assessment by fellow clinical providers in the ED. Further treatment and workup at subsequent clinical providers discretion. Patient/guardian urged not to elope from the ED as their condition may be serious if not clinically assessed and man aged. Initial orders include: Labs
[2021-04-23 20:50] LABS: Basophils % (Auto) 0.5 % (0.0-1.8); Eosinophils # (Auto) 0.2 K/mm3 (0.0-0.4); Eosinophils % (Auto) 3.5 % (0.0-4.3); Hematocrit 25.4 % (30.3-42.9); Hemoglobin 7.9 gm/dl (10.1-14.3); Lymphocytes # (Auto) 1.9 K/mm3 (1.2-5.4); Lymphocytes % (Auto) 30.9 % (13.4-35.0); Mean Corpuscular HGB Conc 31 % (30-34); Monocytes # (Auto) 0.5 K/mm3 (0.0-0.8); Monocytes % (Auto) 7.5 % (0.0-7.3); Platelet Count 292 K/mm3 (140-440); Red Blood Count 3.83 M/mm3 (3.65-5.03)
[2021-04-23 20:52] LABS: Mean Corpuscular Volume 66 fl (79-97)
[2021-04-23 20:59] LABS: INR 1.17 (0.87-1.13); Partial Thromboplastin Time 33.1 Sec. (24.2-36.6)
[2021-04-23 21:12] LABS: Alanine Aminotransferase 5 units/L (7-56); Albumin 3.6 g/dL (3.9-5); Blood Urea Nitrogen 7 mg/dL (7-17); Calcium 8.1 mg/dL (8.4-10.2); Hemolysis Index 1
[2021-04-23 21:13] LABS: BUN/Creatinine Ratio 12
[2021-04-23] MEDS ORDERED: POTASSIUM CHLORIDE ER 20 MEQ TAB PO ONE (22:41)
[2021-04-23] MEDS ORDERED: SODIUM CHLORIDE 0.9% 1000 ML 1,000 ML IV ONE (22:41)
[2021-04-23] MEDS ORDERED: MORPHINE 4 MG/1 ML INJ IM ONE (23:46)
[2021-04-23] MEDS ORDERED: ONDANSETRON 4 MG/2 ML INJ IV ONE (23:46)
[2021-04-24 01:51] LABS: Bilirubin,Urine NEG (Negative); Blood,Urine LG (Negative); Color,Urine Yellow (Yellow); Mucus,Urine FEW /HPF; Urobilinogen,Urine < 2.0 mg/dL (<2.0)
[2021-04-24 01:53] LABS: RBC,Urine > 182.0 /HPF (0.0-6.0)
--- NOTE | 2021-04-24 02:18 | Emergency Department Report ---
ED Syncope HPI - General Chief Complaint: Syncope Stated Complaint: WEAKNESS,DIZZINESS Time Seen by Provider: 04/23/21 20:16 Source: patient Exam Limitations: no limitations - History of Present Illness Initial Comments: Patient is a 35-year-old -[place] with a history of morbid obesity, CVA, uterine fibroids, chronic metrorrhagia, chronic iron deficiency anemia from ch ronic blood loss, seizures and migraine headaches who presents to the ED with complaint of generalized weakness, lightheadedness and a single syncopal episode with no loss of consciousness 12 hours ago while at work. Patient states that she was at work and felt lightheaded and almost fell on the floor but held onto a piece of furniture. Patient states that she has been having heavy menstrual cycle for the last 3 weeks despite taking her multivitamins and iron tablets. 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 Patient denies chest pain, loss of consciousness, fever, chills, dysuria, urinary frequency and urgency, nausea and vomiting, diarrhea, change in vision, dizziness, chest pain or shortness of breath and back pain, head injury or neck pain. Timing/Prior Episodes: single episode today Precipitating Factors: Positive: lightheadedness. Negative: blurred vision, confusion, diaphoresis, recent head trauma, rapid heart beat, unknown Loss of Consciousness: no loss of consciousness Current Symptoms: dizziness, lightheadedness, weakness - Related Data Allergies/Adverse Reactions: Allergies amoxicillin [Amoxicillin] Allergy (Verified 01/29/21 14:08) Swelling Home Medications: Ambulatory Orders carBAMazepine [TEGretol] 200 mg PO Q8HR 12/06/14 levETIRAcetam [Keppra XR TAB] 500 mg PO TID 08/05/15 Ibuprofen [Motrin 600 MG tab] 800 mg PO Q8H PRN 07/26/18 Cyclobenzaprine [Flexeril] 10 mg PO QHS PRN #10 tablet 09/14/18 Ibuprofen [Motrin] 600 mg PO Q8H PRN #20 tablet 09/14/18 Ondansetron [Zofran Odt] 4 mg PO Q6H PRN #20 tab.rapdis 10/02/18 traMADoL [Ultram 50 MG tab] 50 mg PO Q6HR PRN #12 tablet 10/02/18 Benzonatate [Tessalon Perles] 100 mg PO Q8HR PRN #30 capsule 11/30/18 Fluticasone [Flonase] 1 spray NS QDAY #1 bottle 11/30/18 Guaifenesin/Phenylephrine HCl [Chest-Sinus Congst Rlf Tablet] 1 each PO Q6H #20 tablet 11/30/18 Ibuprofen [Motrin] 600 mg PO Q8H PRN #30 tablet 07/07/19 Metoclopramide [Reglan] 10 mg PO QID PRN #30 tablet 07/07/19 Ketorolac [Toradol] 10 mg PO Q6H PRN #10 tablet 01/17/20 Acetaminophen/Codeine [Tylenol /Codeine # 3 tab] 1 tab PO Q6H PRN #12 tab 04/24/21 Ibuprofen [Motrin] 800 mg PO Q8HR PRN #30 tablet 04/24/21 Ondansetron [Zofran Odt] 4 mg PO Q6HR PRN #15 tab.rapdis 04/24/21 Potassium Chloride 20 meq PO Q12H #10 packet 04/24/21 Sulfamethoxazole/Trimethoprim [Bactrim DS TAB] 1 each PO Q12H #20 tablet 04/24/21 ED Review of Systems ROS: Stated complaint: WEAKNESS,DIZZINESS Other details as noted in HPI Constitutional: malaise, weakness Eyes: denies: eye pain, eye discharge, vision change ENT: denies: ear pain, throat pain, dental pain, hearing loss, congestion Respiratory: denies: cough, shortness of breath, wheezing Cardiovascular: syncope. denies: chest pain, palpitations, dyspnea on exertion Endocrine: no symptoms reported Gastrointestinal: denies: abdominal pain, nausea, vomiting, diarrhea, constipation, hematemesis, hematochezia Genitourinary: denies: urgency, dysuria, frequency, discharge, abnormal menses Musculoskeletal: denies: back pain, joint swelling, arthralgia Skin: denies: rash, lesions Neurological: denies: headache, weakness, paresthesias Psychiatric: denies: anxiety, depression Hematological/Lymphatic: denies: easy bleeding, easy bruising ED Past Medical Hx - Past Medical History Previous Medical History?: Yes Hx CVA: Yes (patient states that it was not a CVA but seizures that caused her symptoms ) Hx Headaches / Migraines: Yes Hx Seizures: Yes (episode of Yao's paralysis) Additional medical history: OBESITY. FIBROIDS - Surgical History Past Surgical History?: No - Social History Smoking Status: Never Smoker Substance Use Type: Alcohol - Medications Home Medications: Home Medications Medication Instructions Recorded Confirmed Last Taken Type carBAMazepine [TEGretol] 200 mg PO Q8HR 12/06/14 07/26/18 08/30/15 21:00 History levETIRAcetam [Keppra XR TAB] 500 mg PO TID 08/05/15 07/26/18 08/30/15 21:00 History Ibuprofen [Motrin 600 MG tab] 800 mg PO Q8H PRN 07/26/18 07/26/18 Unknown History Cyclobenzaprine [Flexeril] 10 mg PO QHS PRN #10 tablet 09/14/18 Unknown Rx Ibuprofen [Motrin] 600 mg PO Q8H PRN #20 tablet 09/14/18 Unknown Rx Ondansetron [Zofran Odt] 4 mg PO Q6H PRN #20 tab.rapdis 10/02/18 Unknown Rx traMADoL [Ultram 50 MG tab] 50 mg PO Q6HR PRN #12 tablet 10/02/18 Unknown Rx Benzonatate [Tessalon Perles] 100 mg PO Q8HR PRN #30 capsule 11/30/18 Unknown Rx Fluticasone [Flonase] 1 spray NS QDAY #1 bottle 11/30/18 Unknown Rx Guaifenesin/Phenylephrine HCl 1 each PO Q6H #20 tablet 11/30/18 Unknown Rx [Chest-Sinus Congst Rlf Tablet] Ibuprofen [Motrin] 600 mg PO Q8H PRN #30 tablet 07/07/19 Unknown Rx Metoclopramide [Reglan] 10 mg PO QID PRN #30 tablet 07/07/19 Unknown Rx Ketorolac [Toradol] 10 mg PO Q6H PRN #10 tablet 01/17/20 Unknown Rx Acetaminophen/Codeine [Tylenol 1 tab PO Q6H PRN #12 tab 04/24/21 Unknown Rx /Codeine # 3 tab] Ibuprofen [Motrin] 800 mg PO Q8HR PRN #30 tablet 04/24/21 Unknown Rx Ondansetron [Zofran Odt] 4 mg PO Q6HR PRN #15 tab.rapdis 04/24/21 Unknown Rx Potassium Chloride 20 meq PO Q12H #10 packet 04/24/21 Unknown Rx Sulfamethoxazole/Trimethoprim 1 each PO Q12H #20 tablet 04/24/21 Unknown Rx [Bactrim DS TAB] ED Physical Exam - General Limitations: No Limitations General appearance: alert, in no apparent distress - Head Head exam: Present: atraumatic, normocephalic, normal inspection - Eye Eye exam: Present: normal appearance, PERRL, EOMI Pupils: Present: normal accommodation - ENT ENT exam: Present: normal exam, normal orophraynx, mucous membranes moist, TM's normal bilaterally, normal external ear exam - Neck Neck exam: Present: normal inspection, full ROM - Respiratory Respiratory exam: Present: normal lung sounds bilaterally. Absent: respiratory distress, wheezes, rales, rhonchi, chest wall tenderness, accessory muscle use - Cardiovascular Cardiovascular Exam: Present: regular rate, normal rhythm, normal heart sounds. Absent: systolic murmur, diastolic murmur, rubs, gallop - GI/Abdominal GI/Abdominal exam: Present: soft, tenderness (Palpable mild suprapubic tenderness), normal bowel sounds. Absent: guarding, rebound, hyperactive bowel sounds, hypoactive bowel sounds - Bi-manual exam: Present: other (Pelvic exam deferred) - Extremities Exam Extremities exam: Present: normal inspection, full ROM, normal capillary refill - Back Exam Back exam: Present: normal inspection, full ROM. Absent: tenderness, CVA tenderness (R), CVA tenderness (L), muscle spasm, paraspinal tenderness, vertebral tenderness - Neurological Exam Neurological exam: Present: alert, oriented X3, CN II-XII intact, normal gait, reflexes normal - Psychiatric Psychiatric exam: Present: normal affect, normal mood - Skin Skin exam: Present: warm, dry, intact, normal color. Absent: rash ED Course Vital Signs 04/23/21 19:58 Temperature 98 F Pulse Rate 67 Respiratory 18 Rate Blood Pressure 149/85 [Right] O2 Sat by Pulse 100 Oximetry ED Medical Decision Making - Lab Data Result diagrams: 04/23/21 20:21 04/23/21 20:21 - Medical Decision Making This is a 35-year-old -[place] with a history of morbid obesity, CVA, uterine fibroids, chronic metrorrhagia, chronic iron deficiency anemia from chronic blood loss, seizures and migraine headaches who presents to the ED with complaint of generalized weakness, lightheadedness and a single syncopal episode with no loss of consciousness 12 hours ago while at work. Patient states that she was at work and felt lightheaded and almost fell on the floor but held onto a piece of furniture. Patient states that she has been having heavy menstrual cycle for the last 3 weeks despite taking her multivitamins and iron tablets. 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 In the ED, patient is alert and oriented x3 and is not in any distress. Patient was treated in the ED for pain, also given normal saline 1 L IV bolus x1. Lab test results were reviewed and showed H&H of 7.9 and 25.4 with MCV of 66. It also showed mild hypokalemia of 3.1 mmol/L and urinalysis showed urinary tract infection. On reevaluation, patient felt better, pain resolved with medications. Patient is ambulatory in the ED with no difficulty. Patient discharged home on medications for pain and antibiotics and advised to follow-up with her SALES ADVISORY MANAGER physician as previously scheduled in 2 days for further evaluation. Patient is advised to continue taking the iron tablets for her chronic anemia and to return to the ED immediately if symptoms get worse. - Differential Diagnosis Syncope; dehydration; iron deficiency anemia; menometrorrhagia; fibroids Critical care attestation.: If time is entered above; I have spent that time in minutes in the direct care of this critically ill patient, excluding procedure time. ED Disposition Clinical Impression: Menometrorrhagia, Dysmenorrhea, Iron deficiency anemia due to chronic blood loss, Syncope and collapse, Acute urinary tract infection, Acute hypokalemia Disposition: DC-01 TO HOME OR SELFCARE Is pt being admited?: No Does the pt Need Aspirin: No Condition: Stable Instructions: Syncope (ED), Metrorrhagia, [id number], Menorrhagia, [id number]-[id number], Abnormal Uterine Bleeding, [id number]-[id number], Dysmenorrhea, [id number]-al-[id number], Syncope, Zecx-aj-Seti, Urinary Tract Infection, Adult, Opqs-[id number]-Iqjl Additional Instructions: All lab test results were reviewed and are all nonactionable. Drink plenty of fluids, take medication as needed for pain, follow-up with your SALES ADVISORY MANAGER physician in 3 to 5 days for reevaluation. Continue taking your iron tablets as previously advised. Return to the ED immediately if symptoms get worse. Prescriptions: Sulfamethoxazole/Trimethoprim [Bactrim DS TAB] 1 each PO Q12H #20 tablet Ibuprofen [Motrin] 800 mg PO Q8HR PRN #30 tablet PRN Reason: Pain , Severe (7-10) Potassium Chloride 20 meq PO Q12H #10 packet Acetaminophen/Codeine [Tylenol /Codeine # 3 tab] 1 tab PO Q6H PRN #12 tab PRN Reason: severe pain Ondansetron [Zofran Odt] 4 mg PO Q6HR PRN #15 tab.rapdis PRN Reason: Nausea Referrals: GEORGE HAMEED MD [Staff Physician] - 3-5 Days Time of Disposition: 02:23 Print Language: IRAQI
--- NOTE | 2021-04-25 19:15 | Electrocardiograph Report ---
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
== END 2021-04-24 02:40 | disposition home or self-care (01) ==
LOC: ED 18:07
DX: D50.0 Iron deficiency anemia secondary to blood loss (chronic) (principal); N39.0 Urinary tract infection, site not specified; R55 Syncope and collapse; E87.6 Hypokalemia; N94.6 Dysmenorrhea, unspecified; N92.1 Excessive and frequent menstruation with irregular cycle; G43.909 Migraine, unspecified, not intractable, without status migrainosus; R56.9 Unspecified convulsions; Z86.73 Personal history of transient ischemic attack (TIA), and cerebral infarction without residual deficits; Z79.1 Long term (current) use of non-steroidal anti-inflammatories (NSAID); Z79.899 Other long term (current) drug therapy; Z88.1 Allergy status to other antibiotic agents
CPT/HCPCS: 36415; 80053; 81001; 84484; 84703; 85025; 85610; 85730; 87086; 93005; 96361; 96372; 96374; 99284; J2270; J2405; J7030

== ENCOUNTER 2021-08-09 18:28 | Observation (INO) | payer OTHER ==
--- NOTE | 2021-08-09 19:27 | Emergency Department Report ---
<CARLEE MANZANARES - Last Filed: 08/09/21 21:21> ED General Adult HPI - General Chief complaint: Chest Pain Stated complaint: PAIN IN LEGS/SHARP PAIN CHEST Time Seen by Provider: 08/09/21 18:55 Source: patient Mode of arrival: Ambulatory Limitations: No Limitations - History of Present Illness Initial comments: 36-year-old female with a past medical history of seizure disorders and iron deficiency anemia secondary to abnormal vaginal bleeding which is secondary to uterine fibroids presented to the ER today with complaints of bilateral lower extremity pain. Patient states that for the past 2 days she has been having pain from her knee all the way down to her ankles. Patient states that the pain has been constant, with no apparent modifying factors. She described as a tight cramping pain. She reports associated swelling to the lower extremity. She denies any particular injury. She states that job she alternates between standing, walking and sitting. She denies any redness or bruising or any other skin discoloration to her lower extremity. She denies any prior issues with her lower extremity including denies any surgery to the lower extremity in the past he denies similar symptoms in the past. She reports that yesterday she noticed that she has been having intermittent substernal chest pain which describes as sharp/stabbing pain and sometimes feels like heartburn. She reports chronic nausea, and no vomiting. She denies any associated shortness of breath, cough, wheezing or URI symptoms. Patient denies any hx of CAD or family hx of CAD. She denies hx of PE or DVT or any risk factors for DVT/PE. MD Complaint: Lower extremity pain -: days(s) (2) Location: chest - Related Data Home Medications Medication Instructions Recorded Confirmed Last Taken carBAMazepine [TEGretol] 200 mg PO Q8HR 12/06/14 07/26/18 08/30/15 21:00 levETIRAcetam [Keppra XR TAB] 500 mg PO TID 08/05/15 07/26/18 08/30/15 21:00 Ibuprofen [Motrin 600 MG tab] 800 mg PO Q8H PRN 07/26/18 07/26/18 Unknown Previous Rx's Medication Instructions Recorded Last Taken Type Cyclobenzaprine [Flexeril] 10 mg PO QHS PRN #10 tablet 09/14/18 Unknown Rx Ibuprofen [Motrin] 600 mg PO Q8H PRN #20 tablet 09/14/18 Unknown Rx Ondansetron [Zofran Odt] 4 mg PO Q6H PRN #20 tab.rapdis 10/02/18 Unknown Rx traMADoL [Ultram 50 MG tab] 50 mg PO Q6HR PRN #12 tablet 10/02/18 Unknown Rx Benzonatate [Tessalon Perles] 100 mg PO Q8HR PRN #30 capsule 11/30/18 Unknown Rx Fluticasone [Flonase] 1 spray NS QDAY #1 bottle 11/30/18 Unknown Rx Guaifenesin/Phenylephrine HCl 1 each PO Q6H #20 tablet 11/30/18 Unknown Rx [Chest-Sinus Congst Rlf Tablet] Ibuprofen [Motrin] 600 mg PO Q8H PRN #30 tablet 07/07/19 Unknown Rx Metoclopramide [Reglan] 10 mg PO QID PRN #30 tablet 07/07/19 Unknown Rx Ketorolac [Toradol] 10 mg PO Q6H PRN #10 tablet 01/17/20 Unknown Rx Acetaminophen/Codeine [Tylenol 1 tab PO Q6H PRN #12 tab 04/24/21 Unknown Rx /Codeine # 3 tab] Ibuprofen [Motrin] 800 mg PO Q8HR PRN #30 tablet 04/24/21 Unknown Rx Ondansetron [Zofran Odt] 4 mg PO Q6HR PRN #15 tab.rapdis 04/24/21 Unknown Rx Potassium Chloride 20 meq PO Q12H #10 packet 04/24/21 Unknown Rx Sulfamethoxazole/Trimethoprim 1 each PO Q12H #20 tablet 04/24/21 Unknown Rx [Bactrim DS TAB] Allergies Allergy/AdvReac Type Severity Reaction Status Date / Time amoxicillin [Amoxicillin] Allergy Swelling Verified 01/29/21 14:08 ED Review of Systems Comment: All other systems reviewed and negative Constitutional: denies: chills, fever Eyes: denies: eye pain, eye discharge, vision change ENT: denies: ear pain, throat pain Respiratory: denies: cough, shortness of breath, wheezing Cardiovascular: chest pain Endocrine: no symptoms reported Gastrointestinal: denies: abdominal pain, nausea, vomiting, diarrhea, constipation, hematemesis, melena, hematochezia Genitourinary: denies: urgency, dysuria, frequency, hematuria, discharge, abnormal menses, dyspareunia Musculoskeletal: joint swelling, arthralgia Skin: denies: rash, lesions, change in color, change in hair/nails, pruritus Neurological: denies: headache, weakness, numbness, paresthesias, confusion, abnormal gait, vertigo Psychiatric: denies: anxiety, depression, auditory hallucinations, visual hallucinations, homicidal thoughts, suicidal thoughts ED Past Medical Hx - Past Medical History Previous Medical History?: Yes Hx CVA: Yes (patient states that it was not a CVA but seizures that caused her symptoms ) Hx Headaches / Migraines: Yes Hx Seizures: Yes (episode of Yao's paralysis) Additional medical history: OBESITY. FIBROIDS - Surgical History Past Surgical History?: No - Social History Smoking Status: Never Smoker Substance Use Type: Alcohol - Medications Home Medications: Home Medications Medication Instructions Recorded Confirmed Last Taken Type carBAMazepine [TEGretol] 200 mg PO Q8HR 12/06/14 07/26/18 08/30/15 21:00 History levETIRAcetam [Keppra XR TAB] 500 mg PO TID 08/05/15 07/26/18 08/30/15 21:00 History Ibuprofen [Motrin 600 MG tab] 800 mg PO Q8H PRN 07/26/18 07/26/18 Unknown History Cyclobenzaprine [Flexeril] 10 mg PO QHS PRN #10 tablet 09/14/18 Unknown Rx Ibuprofen [Motrin] 600 mg PO Q8H PRN #20 tablet 09/14/18 Unknown Rx Ondansetron [Zofran Odt] 4 mg PO Q6H PRN #20 tab.rapdis 10/02/18 Unknown Rx traMADoL [Ultram 50 MG tab] 50 mg PO Q6HR PRN #12 tablet 10/02/18 Unknown Rx Benzonatate [Tessalon Perles] 100 mg PO Q8HR PRN #30 capsule 11/30/18 Unknown Rx Fluticasone [Flonase] 1 spray NS QDAY #1 bottle 11/30/18 Unknown Rx Guaifenesin/Phenylephrine HCl 1 each PO Q6H #20 tablet 11/30/18 Unknown Rx [Chest-Sinus Congst Rlf Tablet] Ibuprofen [Motrin] 600 mg PO Q8H PRN #30 tablet 07/07/19 Unknown Rx Metoclopramide [Reglan] 10 mg PO QID PRN #30 tablet 07/07/19 Unknown Rx Ketorolac [Toradol] 10 mg PO Q6H PRN #10 tablet 01/17/20 Unknown Rx Acetaminophen/Codeine [Tylenol 1 tab PO Q6H PRN #12 tab 04/24/21 Unknown Rx /Codeine # 3 tab] Ibuprofen [Motrin] 800 mg PO Q8HR PRN #30 tablet 04/24/21 Unknown Rx Ondansetron [Zofran Odt] 4 mg PO Q6HR PRN #15 tab.rapdis 04/24/21 Unknown Rx Potassium Chloride 20 meq PO Q12H #10 packet 04/24/21 Unknown Rx Sulfamethoxazole/Trimethoprim 1 each PO Q12H #20 tablet 04/24/21 Unknown Rx [Bactrim DS TAB] ED Physical Exam - General Limitations: No Limitations General appearance: alert, in no apparent distress, obese - Head Head exam: Present: atraumatic, normocephalic, normal inspection - Eye Eye exam: Present: normal appearance, PERRL, EOMI Pupils: Present: normal accommodation - ENT ENT exam: Present: normal exam, mucous membranes moist, TM's normal bilaterally - Neck Neck exam: Present: normal inspection, full ROM - Respiratory Respiratory exam: Present: normal lung sounds bilaterally. Absent: respiratory distress, wheezes, rales, rhonchi - Cardiovascular Cardiovascular Exam: Present: regular rate, normal rhythm, normal heart sounds - GI/Abdominal GI/Abdominal exam: Present: soft. Absent: distended, tenderness, guarding, rebound - Extremities Exam Extremities exam: Present: full ROM, tenderness (Bilaterally and diffuse lower extremities ), normal capillary refill, calf tenderness (Bilaterally), other (Mild nonpitting edema noted to bilateral lower extremity including ankles. She has diffuse tenderness palpation about her lower leg including posterior right knee. She has full range of motion of the knee, ankles and feet. No redness or bruising or other skin discoloration noted. ) - Neurological Exam Neurological exam: Present: alert, oriented X3, CN II-XII intact, normal gait - Psychiatric Psychiatric exam: Present: normal affect, normal mood - Skin Skin exam: Present: intact ED Medical Decision Making - Lab Data Result diagrams: 08/09/21 19:32 08/09/21 19:32 - EKG Data EKG shows normal: sinus rhythm Rate: normal - EKG Data Interpretation: normal EKG - Radiology Data Radiology results: report reviewed Patient: JANET WILLIAM MR#: [id number] : 1985 Acct:[id number] Age/Sex: 36 / F ADM Date: 08/09/21 Loc: ED Attending Dr: Ordering Physician: CARLEE MANZANARES Date of Service: 08/09/21 Procedure(s): XR chest routine 2V Accession Number(s): [id number] cc: CARLEE MANZANARES Fluoro Time In Minutes: CHEST 2 VIEWS INDICATION: Chest Pain. COMPARISON: None FINDINGS: SUPPORT DEVICES: None. HEART: Within normal limits. LUNGS/PLEURA: Mild patchy bibasilar predominant airspace disease. No effusion. No pneumothorax. ADDITIONAL FINDINGS: None. IMPRESSION: 1. Lung findings as above. Signer Name: Bob Elise MD Signed: 08/09/2021 7:46 PM Workstation Name: [id number] Transcribed By: SLOAN Dictated By: Bob Elise MD Electronically Authenticated By: Bob Elise MD Signed Date/Time: 08/09/211945 DD/ 45 TD/TT: - Medical Decision Making The patient's care has been transferred to and accepted by[DEBBIE Sandoval]. We discussed: The patient's chief complaints; labs and imaging that have been completed and those that are still pending; any treatment provided and the patient's response to treatment; any significant change in condition;the treatment plan prior to the transfer of care. The accepting provider will follow up on all pending labs and imaging and make any necessary changes to the current impression and/or treatment plan. The accepting physician/midlevel is now responsible for the patient's care and final disposition. ED Disposition Clinical Impression: Multiple pulmonary emboli Disposition: ADMITTED INPATIENT Condition: Serious <ERICH KOCH - Last Filed: 08/09/21 23:13> ED Review of Systems ROS: Stated complaint: PAIN IN LEGS/SHARP PAIN CHEST Other details as noted in HPI ED Course Vital Signs 08/09/21 18:31 Temperature 98.3 F Pulse Rate 91 H Respiratory 18 Rate Blood Pressure 132/76 O2 Sat by Pulse 97 Oximetry ED Medical Decision Making - Lab Data Result diagrams: 08/09/21 19:32 08/09/21 19:32 - Radiology Data [address] [place] [address] Cat Scan Report Signed Patient: JANET WILLIAM MR#: [id number] : 1985 Acct:[id number] Age/Sex: 36 / F ADM Date: 08/09/21 Loc: ED Attending Dr: Ordering Physician: CARLEE MANZANARES Date of Service: 08/09/21 Procedure(s): CT angio chest Accession Number(s): [id number] cc: CARLEE MANZANARES CTA CHEST WITH CONTRAST INDICATION / CLINICAL INFORMATION: Pt complains of chest pain / elevated D- dimer. TECHNIQUE: Axial CT images were obtained through the chest after injection of 100 mL's of Omnipaque 350 IV contrast. 3 plane MIP and/or 3D reconstructions were produced. All CT scans at this location are performed using CT dose reduction for [employer] by means of automated exposure control. COMPARISON: None available. FINDINGS: PULMONARY ARTERIES: There is is a filling defect noted within the interlobar segmental artery of the right lung. Additionally, there are several filling defects noted involving the distal aspect of the segmental artery of the left lower lobe. Several filling defects are noted within the subsegmental arteries of the right lower lobe. THORACIC AORTA: No significant abnormality. HEART: No significant abnormality. CORONARY ARTERY CALCIFICATION: None. MEDIASTINUM / KHUSHI: No significant abnormality. PLEURA: No pleural effusion. No pneumothorax. LUNGS: No acute air space or interstitial disease. ADDITIONAL FINDINGS: None. UPPER ABDOMEN: No acute findings. SKELETAL STRUCTURES: No significant osseous abnormality. IMPRESSION: 1. Multiple pulmonary emboli. 2. No other significant findings. CRITICAL RESULT Time of Discovery (KNITTER MACHINE/CDT): 2149 Time of Communication (KNITTER MACHINE/CDT): 2153 Licensed Practitioner Receiving Report: SHANNAN Koch Read-Back Performed: Yes. Signer Name: Shane Peralta DO Signed: 08/09/2021 10:54 PM Workstation Name: [id number] Transcribed By: VANESSA Dictated By: SHANE PERALTA DO Electronically Authenticated By: SHANE PERALTA DO Signed Date/Time: 08/09/212253 DD/ 46 TD/TT: - Medical Decision Making Care of patient transferred by Carlee Manzanares PA-C at change of shift pending radiology results. Received telephone call from radiologist regarding critical results on CT angiogram of the chest consisting of filling defects involving several arteries of both lungs, consistent with multiple pulmonary emboli. No radiographic evidence of right heart strain. Vital signs are stable without cl inical evidence to warrant emergent catheter directed thrombolysis or embolectomy at this time. Lower extremity US is pending. Patient started on Heparin bolus 80 units/kg followed by Heparin drip 18 units/kg/hr. Case discussed with hospitalist, who agrees to admit. Patient expressed understanding and is agreeable to plan of care. Critical care attestation.: If time is entered above; I have spent that time in minutes in the direct care of this critically ill patient, excluding procedure time. ED Disposition Is pt being admited?: Yes Does the pt Need Aspirin: No Time of Disposition: 23:10
--- NOTE | 2021-08-09 19:51 | XRay Report ---
CHEST 2 VIEWS INDICATION: Chest Pain. COMPARISON: None FINDINGS: SUPPORT DEVICES: None. HEART: Within normal limits. LUNGS/PLEURA: Mild patchy bibasilar predominant airspace disease. No effusion. No pneumothorax. ADDITIONAL FINDINGS: None. IMPRESSION: 1. Lung findings as above. Signer Name: Bob Elise MD Signed: 08/09/2021 7:46 PM Workstation Name: [id number]
[2021-08-09 20:05] LABS: Basophils # (Auto) 0.2 K/mm3 (0.0-0.1); Basophils % (Auto) 2.8 % (0.0-1.8); Eosinophils # (Auto) 0.1 K/mm3 (0.0-0.4); Eosinophils % (Auto) 1.6 % (0.0-4.3); Hemoglobin 9.2 gm/dl (10.1-14.3); Lymphocytes # (Auto) 1.8 K/mm3 (1.2-5.4); Lymphocytes % (Auto) 28.7 % (13.4-35.0); Mean Corpuscular HGB Conc 32 % (30-34); Mean Corpuscular Volume 71 fl (79-97); Monocytes # (Auto) 0.6 K/mm3 (0.0-0.8); Monocytes % (Auto) 9.8 % (0.0-7.3); Platelet Count 273 K/mm3 (140-440); Red Blood Count 4.08 M/mm3 (3.65-5.03); Red Cell Distribution Width 19.6 % (13.2-15.2)
[2021-08-09 20:27] LABS: Alanine Aminotransferase 5 units/L (7-56); Albumin 4.1 g/dL (3.9-5); Blood Urea Nitrogen 10 mg/dL (7-17); Calcium 8.8 mg/dL (8.4-10.2); Hemolysis Index 0
[2021-08-09 20:31] LABS: BUN/Creatinine Ratio 14
--- NOTE | 2021-08-09 22:59 | Cat Scan Report ---
CTA CHEST WITH CONTRAST INDICATION / CLINICAL INFORMATION: Pt complains of chest pain / elevated D-dimer. TECHNIQUE: Axial CT images were obtained through the chest after injection of 100 mL's of Omnipaque 3 50 IV contrast. 3 plane MIP and/or 3D reconstructions were produced. All CT scans at this location ar e performed using CT dose reduction for [employer] by means of automated exposure control. COMPARISON: None available. FINDINGS: PULMONARY ARTERIES: There is is a filling defect noted within the interlobar segmental artery of the right lung. Additionally, there are several filling defects noted involving the distal aspect of the segmental artery of the left lower lobe. Several filling defects are noted within the subsegmental ar teries of the right lower lobe. THORACIC AORTA: No significant abnormality. HEART: No significant abnormality. CORONARY ARTERY CALCIFICATION: None. MEDIASTINUM / KHUSHI: No significant abnormality. PLEURA: No pleural effusion. No pneumothorax. LUNGS: No acute air space or interstitial disease. ADDITIONAL FINDINGS: None. UPPER ABDOMEN: No acute findings. SKELETAL STRUCTURES: No significant osseous abnormality. IMPRESSION: 1. Multiple pulmonary emboli. 2. No other significant findings. CRITICAL RESULT Time of Discovery (SENIOR NETWORK SECURITY ARCHITECT/CDT): 2149 Time of Communication (SENIOR NETWORK SECURITY ARCHITECT/CDT): 2153 Licensed Practitioner Receiving Report: SHANNAN Koch Read-Back Performed: Yes. Signer Name: Shane Jeffery DO Signed: 08/09/2021 10:54 PM Workstation Name: [id number]
[2021-08-09] MEDS ORDERED: HEPARIN 10,000 UNITS/10 ML VIAL IV ONE (23:03)
[2021-08-09] MEDS ORDERED: HEPARIN/ 0.45% NACL DRIP 25,000 UNIT/500 ML BAG IV SCH (23:45)
[2021-08-09 23:47] LABS: Hemoglobin 9.4 gm/dl (10.1-14.3)
[2021-08-09 23:57] LABS: INR 1.05 (0.87-1.13)
[2021-08-09 23:58] LABS: Partial Thromboplastin Time 29.8 Sec. (24.2-36.6)
--- NOTE | 2021-08-10 00:53 | Vascular Lab Report ---
DUPLEX DOPPLER LOWER EXTREMITY VEINS, BILATERAL INDICATION / CLINICAL INFORMATION: bilateral lower extremity pain /swelling. TECHNIQUE: Duplex doppler imaging was performed through the veins of both lower extremities using venous janet matty and other maneuvers. COMPARISON: None available. FINDINGS: Right Common Femoral vein: Negative. Right Femoral vein: Negative. Right Popliteal vein: Negative. Right Calf veins: Negative. Left Common Femoral vein: Negative. Left Femoral vein: Negative. Left Popliteal vein: Negative. Left Calf veins: Negative. Additional findings: None. IMPRESSION: 1. No sonographic evidence for DVT in either lower extremity. Signer Name: Kevin Beebe MD Signed: 08/10/2021 12:48 AM Workstation Name: [id number]
[2021-08-10] MEDS ORDERED: ONDANSETRON 4 MG/2 ML INJ IV PRN (01:44)
[2021-08-10] MEDS ORDERED: HEPARIN 10,000 UNITS/10 ML VIAL IV PRN ×2 (01:44→10:00)
[2021-08-10] MEDS ORDERED: oxyCODONE /ACETAMINOPHEN 5-325MG TAB PO PRN (01:44)
[2021-08-10] MEDS ORDERED: HYDROmorphone 1 MG/1 ML INJ IV PRN (01:44)
[2021-08-10] MEDS ORDERED: ACETAMINOPHEN 325 MG TAB PO PRN (01:44)
[2021-08-10] MEDS ORDERED: ALBUTEROL 2.5 MG/3 ML NEBU IH PRN (01:44)
[2021-08-10] MEDS ORDERED: traMADol 50 MG TAB PO PRN (01:48)
[2021-08-10] MEDS ORDERED: BENZONATATE 100 MG CAP PO PRN (01:48)
[2021-08-10] MEDS ORDERED: CYCLOBENZAPRINE 10 MG TAB PO PRN (01:48)
--- NOTE | 2021-08-10 01:54 | History and Physical Report ---
History of Present Illness Date of examination: 08/10/21 Date of admission: 08/10/21 01:29 Chief complaint: Chest pain History of present illness: 36-year-old female with a past medical history of seizure disorders and iron deficiency anemia secondary to abnormal vaginal bleeding which is secondary to uterine fibroids presented to the ER today with complaints of bilateral lower extremity pain. Patient complaining of having pain from her knee all the way down to her ankles for last 2 days. patient states that the pain has been constant, described as a tight cramping pain. She reports associated swelling to the lower extremity. She denies any particular injury. She states that job she alternates between standing, walking and sitting. She denies any redness or bruising or any other skin discoloration to her lower extremity. She denies any prior issues with her lower extremity including denies any surgery to the lower extremity in the past he denies similar symptoms in the past. She reports that yesterday she noticed that she has been having intermittent substernal chest pain which describes as sharp/stabbing pain and sometimes feels like heartburn. She reports chronic nausea, and no vomiting. She denies any associated shortness of breath, cough, wheezing or URI symptoms. Patient denies any hx of CAD or family hx of CAD. She denies hx of PE or DVT or any risk factors for DVT/PE. In the emergency room CT scan of the chest showed multiple pulmonary emboli. No other significant findings. Venous Doppler showed no sonographic evidence for DVT in either lower extremity. Admit the patient to the hospital with a diagnosis of multiple pulmonary embolism. Med rec is done. Past History Past Medical History: anemia, seizures, other (Uterine fibroid) Medications and Allergies Allergies Allergy/AdvReac Type Severity Reaction Status Date / Time amoxicillin [Amoxicillin] Allergy Swelling Verified 01/29/21 14:08 Home Medications Medication Instructions Recorded Confirmed Last Taken Type carBAMazepine [TEGretol] 200 mg PO Q8HR 12/06/14 07/26/18 08/30/15 21:00 History levETIRAcetam [Keppra XR TAB] 500 mg PO TID 08/05/15 07/26/18 08/30/15 21:00 History Ibuprofen [Motrin 600 MG tab] 800 mg PO Q8H PRN 07/26/18 07/26/18 Unknown History Cyclobenzaprine [Flexeril] 10 mg PO QHS PRN #10 tablet 09/14/18 Unknown Rx Ibuprofen [Motrin] 600 mg PO Q8H PRN #20 tablet 09/14/18 Unknown Rx Ondansetron [Zofran Odt] 4 mg PO Q6H PRN #20 tab.rapdis 10/02/18 Unknown Rx traMADoL [Ultram 50 MG tab] 50 mg PO Q6HR PRN #12 tablet 10/02/18 Unknown Rx Benzonatate [Tessalon Perles] 100 mg PO Q8HR PRN #30 capsule 11/30/18 Unknown Rx Fluticasone [Flonase] 1 spray NS QDAY #1 bottle 11/30/18 Unknown Rx Guaifenesin/Phenylephrine HCl 1 each PO Q6H #20 tablet 11/30/18 Unknown Rx [Chest-Sinus Congst Rlf Tablet] Ibuprofen [Motrin] 600 mg PO Q8H PRN #30 tablet 07/07/19 Unknown Rx Metoclopramide [Reglan] 10 mg PO QID PRN #30 tablet 07/07/19 Unknown Rx Ketorolac [Toradol] 10 mg PO Q6H PRN #10 tablet 01/17/20 Unknown Rx Acetaminophen/Codeine [Tylenol 1 tab PO Q6H PRN #12 tab 04/24/21 Unknown Rx /Codeine # 3 tab] Ibuprofen [Motrin] 800 mg PO Q8HR PRN #30 tablet 04/24/21 Unknown Rx Ondansetron [Zofran Odt] 4 mg PO Q6HR PRN #15 tab.rapdis 04/24/21 Unknown Rx Potassium Chloride 20 meq PO Q12H #10 packet 04/24/21 Unknown Rx Sulfamethoxazole/Trimethoprim 1 each PO Q12H #20 tablet 04/24/21 Unknown Rx [Bactrim DS TAB] Active Meds: Active Medications Heparin Sodium/Sodium Chloride (Heparin/ 0.45% Nacl-25,000 Unit/500 Ml) 25,000 unit in 500 mls @ 30 mls/hr IV TITR GEORGIE; Protocol Sodium Chloride (Sodium Chloride 0.9% 10 Ml Flush Syringe) 10 ml IV PRN PRN PRN Reason: LINE FLUSH Review of Systems All systems: negative Musculoskeletal: other (Bilateral lower extremity pain) Exam - Constitutional Vitals: Temp Pulse Resp BP Pulse Ox 98.3 F 91 H 18 132/76 97 08/09/21 18:31 08/09/21 18:31 08/09/21 18:31 08/09/21 18:31 08/09/21 18:31 General appearance: Present: no acute distress, well-nourished - EENT Eyes: Present: PERRL ENT: hearing intact, clear oral mucosa - Neck Neck: Present: supple, normal ROM - Respiratory Respiratory effort: normal Respiratory: bilateral: CTA - Cardiovascular Heart Sounds: Present: S1 & S2. Absent: rub, click - Extremities Extremities: pulses symmetrical, No edema Peripheral Pulses: within normal limits - Abdominal General gastrointestinal: Present: soft, non-tender, non-distended, normal bowel sounds Female genitourinary: Present: normal - Integumentary Integumentary: Present: clear, warm, dry - Musculoskeletal Musculoskeletal: gait normal, strength equal bilaterally - Psychiatric Psychiatric: appropriate mood/affect, intact judgment & insight - Neurologic Neurologic: CNII-XII intact, moves all extremities HEART Score - HEART Score Troponin: Troponin T < 0.010 ng/mL (0.00-0.029) 08/09/21 19:32 Results - Labs CBC & Chem 7: 08/09/21 23:23 08/09/21 19:32 Labs: Laboratory Last Values WBC 6.2 K/mm3 (4.5-11.0) 08/09/21 19:32 RBC 4.08 M/mm3 (3.65-5.03) 08/09/21 19:32 Hgb 9.4 gm/dl (10.1-14.3) L 08/09/21 23:23 Hct 30.0 % (30.3-42.9) L 08/09/21 23:23 MCV 71 fl (79-97) L 08/09/21 19:32 MCH 22 pg (28-32) L 08/09/21 19:32 MCHC 32 % (30-34) 08/09/21 19:32 RDW 19.6 % (13.2-15.2) H 08/09/21 19:32 Plt Count 273 K/mm3 (140-440) 08/09/21 23:23 Lymph % (Auto) 28.7 % (13.4-35.0) 08/09/21 19:32 Davis % (Auto) 9.8 % (0.0-7.3) H 08/09/21 19:32 Eos % (Auto) 1.6 % (0.0-4.3) 08/09/21 19:32 Baso % (Auto) 2.8 % (0.0-1.8) H 08/09/21 19:32 Lymph # (Auto) 1.8 K/mm3 (1.2-5.4) 08/09/21 19:32 Davis # (Auto) 0.6 K/mm3 (0.0-0.8) 08/09/21 19:32 Eos # (Auto) 0.1 K/mm3 (0.0-0.4) 08/09/21 19:32 Baso # (Auto) 0.2 K/mm3 (0.0-0.1) H 08/09/21 19:32 Seg Neutrophils % 57.1 % (40.0-70.0) 08/09/21 19:32 Seg Neutrophils # 3.5 K/mm3 (1.8-7.7) 08/09/21 19:32 PT 14.2 Sec. (12.2-14.9) 08/09/21 23:23 INR 1.05 (0.87-1.13) 08/09/21 23:23 APTT 29.8 Sec. (24.2-36.6) 08/09/21 23:23 D-Dimer 539.70 ng/mlDDU (0-234) H 08/09/21 19:32 Sodium 139 mmol/L (137-145) 08/09/21 19:32 Potassium 3.8 mmol/L (3.6-5.0) 08/09/21 19:32 Chloride 103.6 mmol/L (98-107) 08/09/21 19:32 Carbon Dioxide 24 mmol/L (22-30) 08/09/21 19:32 Anion Gap 15 mmol/L 08/09/21 19:32 BUN 10 mg/dL (7-17) 08/09/21 19:32 Creatinine 0.7 mg/dL (0.6-1.2) 08/09/21 19:32 Estimated GFR > 60 ml/min 08/09/21 19:32 BUN/Creatinine Ratio 14 % 08/09/21 19:32 Glucose 88 mg/dL (65-100) 08/09/21 19:32 Calcium 8.8 mg/dL (8.4-10.2) 08/09/21 19:32 Total Bilirubin 0.30 mg/dL (0.1-1.2) 08/09/21 19:32 AST 12 units/L (5-40) 08/09/21 19:32 ALT 5 units/L (7-56) L 08/09/21 19:32 Alkaline Phosphatase 81 units/L (35-129) 08/09/21 19:32 Troponin T < 0.010 ng/mL (0.00-0.029) 08/09/21 19:32 Total Protein 7.6 g/dL (6.3-8.2) 08/09/21 19:32 Albumin 4.1 g/dL (3.9-5) 08/09/21 19:32 Albumin/Globulin Ratio 1.2 % 08/09/21 19:32 HCG, Qual Negative (Negative) 08/09/21 23:23 - Imaging and Cardiology CT scan - chest: report reviewed Venous US: report reviewed Assessment and Plan VTE prophylaxis?: Chemical Plan of care discussed with patient/family: Yes - Patient Problems (1) Pulmonary embolism Current Visit: Yes Status: Acute Plan to address problem: Admit to the medical floor telemetry. Oxygen via nasal catheter per minute. DuoNeb by nebulizer every 4 hours. Albuterol via nebulizer every 4 hours as needed. Heparin drip as per protocol. Will consult hematology in the morning (2) Seizure Current Visit: Yes Status: Acute Plan to address problem: Week put the patient on Carbamazepine 200 mg p.o. every 8 hours. Levetiracetam 500 mg p.o. 3 times daily (3) Anemia Current Visit: Yes Status: Acute Plan to address problem: Hemoglobin is 9.4 and hematocrit 30.0. We will continue the home medication. We will monitor the patient closely (4) DVT prophylaxis Current Visit: Yes Status: Acute Plan to address problem: Heparin drip for DVT prophylaxis. Pepcid 20 mg p.o. twice daily for GI prophylaxis. Patient is a full code
[2021-08-10] MEDS ORDERED: carBAMazepine 200 MG TAB PO SCH (06:00)
[2021-08-10] MEDS: [UNRECOGNIZED DRUG - OTHER] PO SCH ×3 (07:13→13:44)
[2021-08-10] MEDS: PHENYLEPHRINE PO SCH ×3 (07:13→13:44)
[2021-08-10] MEDS: GUAIFENESIN PO SCH ×3 (07:13→13:44)
[2021-08-10] MEDS: IPRATROPIUM/ALBUTEROL SULFATE 3 ML AMPUL.NEB IH SCH ×3 (07:13→13:44)
[2021-08-10] MEDS ORDERED: LEVETIRACETAM 500 MG PO SCH (08:00)
[2021-08-10] MEDS ORDERED: levETIRAcetam 500 MG TAB PO SCH (08:00)
--- NOTE | 2021-08-10 08:35 | Electrocardiograph Report ---
[facility] Test Date: 2021-08-09 Test Time: 18:46:43 Pat Name: February Department: Room: [place] [address] Gender: F Toe Former [employer]: SALVADOR : 1985 Requested By: MIHIR MANZANARES Order Number: [id number] Reading MD: Ari Mills Measurements Intervals Clive Rate: 83 P: 48 WA: 177 QRS: 20 QRSD: 85 T: 30 QT: 355 QTc: 416 Interpretive Statements Sinus rhythm Compared to ECG 04/23/2021 19:26:39 Myocardial infarct finding no longer present Electronically Signed On 08-10-2021 8:34:54 EDT by Ari Mills
[2021-08-10] MEDS ORDERED: FLUTICASONE PROPIONATE NASAL SPRAY 16 GM NS SCH (10:00)
[2021-08-10] MEDS ORDERED: FAMOTIDINE 20 MG TAB PO SCH (10:00)
[2021-08-10] MEDS ORDERED: SULFAMETHOXAZOLE/TRIMETHOPRIM 800/160MG DS TAB PO SCH (10:00)
[2021-08-10] MEDS ORDERED: APIXABAN 5 MG TAB PO SCH (14:00)
[2021-08-10 14:03] VITALS: BP 129/89
--- NOTE | 2021-08-10 15:01 | Discharge Summary ---
Providers - Providers Date of Admission: 08/10/21 01:29 Date of discharge: 08/10/21 Attending physician: SAJAN SHELTON MD Primary care physician: JAYRO MUNOZ Hospitalization Reason for admission: Pulmonary embolism Condition: Good Pertinent studies: Reviewed. Procedures: CT PE protocol; venous Dopplers of bilateral lower extremities Hospital course: The patient is a 36-year-old female with past medical history of seizure disorder and iron deficiency anemia secondary to abnormal uterine bleeding secondary to uterine fibroids who presented with worsening bilateral lower leg pain (from knee down to ankle). The patient denied any recent travel, trauma, new medications, or use of oral contraceptives. The patient denies any coronavirus exposures. The patient was evaluated in the ED ED and found to be positive for multiple pulmonary embolisms as seen on CT PE protocol. The patient underwent venous Dopplers of bilateral lower extremities, which were negative for any DVT. The patient admits to a family history of blood clots (mother and cousin). The patient herself denies any history of prolonged bleeding, easy bruising, melena, hematochezia, or, hematuria. The patient remained hemodynamically stable and did not requires supplemental oxygen (saturating at 100%). Due to the patient's hemodynamic status and low risk of decline (Hestia criteria- score 0), the patient transition from heparin drip (initiated upon admission) to apixaban. The patient was counseled about increased bleeding risk and return to ED precautions. The patient expressed understanding. The patient will follow up with her primary care provider upon discharge. Disposition: 01 HOME / SELF CARE / HOMELESS Final Discharge Diagnosis (Prints w/discharge instructions): Pulmonary embolism Time spent for discharge: 45 min Core Measure Documentation - Palliative Care Palliative Care/ Comfort Measures: Not Applicable - Core Measures Any of the following diagnoses?: none - VTE Discharge Requirements Deep Vein Thrombosis/Pulmonary Embolism Present on Admission: Yes Has pt received <5 days of overlap therapy or INR<2.0: Yes (Patient initiated on DOAC (Eliquis)) Anticoagulant overlap therapy prescribed at discharge: Yes - Acute ID Discharge Requirements Aspirin at discharge: No Reason for no aspirin on DC: Medical contraindication (Not indicated) SEAN/ARB for LVSD if EF <40%: Not Applicable Reason for no SEAN/ARB: Medical contraindication (Not indicated) Beta angelita at discharge: No Reason for no beta angelita on DC: Medical contraindication (Not indicated) Statin for LDL = or >100 mg/dl on DC: Not Applicable Reason for no statin on DC: Medical contraindication - Heart Failure Discharge Requirements SEAN/ARB for LVSD if EF <40%: Not Applicable Reason for no SEAN/ARB: Medical contraindication Beta angelita at discharge: No (Not indicated) Reason for no beta angelita on DC: Medical contraindication (Not indicated) - Stroke Discharge Requirements Statin for LDL = or >70 mg/dl on DC: Not Applicable Reason for no statin on DC: Not Indicated Anticoag for atrial fib/atrial flutter: Not Applicable Reason for no anticoag for AF/F on DC: Not Indicated Antithrombotic for ischemic stroke: No Reason for no antithrombotic on DC: Not Indicated Exam - Constitutional Vitals: Temp Pulse Resp BP Pulse Ox 98.5 F 88 19 129/89 99 08/10/21 14:02 08/10/21 14:02 08/10/21 14:02 08/10/21 14:02 08/10/21 14:02 General appearance: Present: no acute distress - EENT Eyes: Present: PERRL, EOM intact ENT: hearing intact, clear oral mucosa, dentition normal - Neck Neck: Present: supple, normal ROM - Respiratory Respiratory effort: normal - Cardiovascular Rhythm: regular Heart Sounds: Present: S1 & S2 - Extremities Extremities: no ischemia, pulses intact, pulses symmetrical, No edema, normal temperature, normal color Peripheral Pulses: within normal limits - Abdominal General gastrointestinal: Present: soft, non-tender, non-distended, normal bowel sounds Female genitourinary: Present: deferred - Rectal Rectal Exam: deferred - Integumentary Integumentary: Present: clear, warm, dry - Musculoskeletal Musculoskeletal: strength equal bilaterally - Psychiatric Psychiatric: appropriate mood/affect, intact judgment & insight, memory intact, cooperative - Neurologic Neurologic: CNII-XII intact, moves all extremities - Allied Health Allied health notes reviewed: nursing Plan Health Concerns: Patient should return back to the ER if experience any of the following: Weakness, confusion, shortness of breath, chest pain/pressure, worsening leg pain, passing out, or bleeding that cannot be controlled. Assessment: Patient discharging home with anticoagulation. Follow up with: KINZA RASHID NP-C [Primary Care Provider] - 7 Days Prescriptions: Apixaban [Eliquis] 10 mg PO Q12H 7 Days #28 tablet Apixaban [Eliquis] 5 mg PO Q12H #60 tablet
== END 2021-08-10 14:00 | disposition home or self-care (01) ==
LOC: ED 18:28 → INTOOBSV 08-10 01:29 → 3A 08-10 01:29 → 4A 08-10 02:17
PROVIDERS: ADMIT Hospitalist; ATTEND Student in an Organized Health Care Education/Training Program
DX: I26.99 Other pulmonary embolism without acute cor pulmonale (principal); I74.9 Embolism and thrombosis of unspecified artery; D64.9 Anemia, unspecified; R56.9 Unspecified convulsions
CPT/HCPCS: 36415; 71046; 71275; 80053; 84484; 84703; 85014; 85018; 85025; 85049; 85379; 85610; 85730; 93005; 93970; 96365; 96366; 96376; 99285; G0378; J1644; Q9967

== ENCOUNTER 2021-09-23 14:01 | Emergency (ER) | payer OTHER ==
--- NOTE | 2021-09-23 15:25 | Emergency Department Report ---
ED Abdominal Pain HPI - General Chief Complaint: Chest Pain Stated Complaint: CHEST/ABD PAIN Time Seen by Provider: 09/23/21 15:20 Source: patient Mode of arrival: Ambulatory Limitations: No Limitations - History of Present Illness Initial Comments: Patient is 36 years old female with recent diagnosis of PE on Xarelto now. Patient presented to the ER stated [place] and all of a sudden she started having lower abdominal pain mainly to the suprapubic area and left lower quadrant. Patient denied any nausea, vomiting or diarrhea. No urinary symptoms. Patient stated that she felt the pain went to her chest in the beginning but now she does not have any chest pain. She denied any shortness of breath, cough, fever or chills. Patient stated that she is compliant with her Xarelto. MD Complaint: abdominal pain -: This afternoon Location: LLQ, suprapubic Radiation: chest Severity: moderate Severity scale (0 -10): 4 Quality: sharp Associated Symptoms: denies other symptoms - Related Data Home Medications Medication Instructions Recorded Confirmed Last Taken carBAMazepine [TEGretol] 200 mg PO Q8HR 12/06/14 08/10/21 08/10/21 06:19 Ferrous Sulfate [Iron 325 MG] 325 mg PO TIDWM 08/10/21 08/10/21 Unknown levETIRAcetam [Keppra TAB] 500 mg PO TID 08/10/21 08/10/21 Unknown Previous Rx's Medication Instructions Recorded Last Taken Type Ibuprofen [Motrin 800 MG tab] 800 mg PO Q8HR PRN #30 tablet 04/24/21 Unknown Rx Apixaban [Eliquis] 5 mg PO Q12H #60 tablet 08/10/21 Unknown Rx Apixaban [Eliquis] 10 mg PO Q12H 7 Days #28 tablet 08/10/21 Unknown Rx Allergies Allergy/AdvReac Type Severity Reaction Status Date / Time amoxicillin [Amoxicillin] Allergy Hives Verified 09/23/21 14:10 ED Review of Systems ROS: Stated complaint: CHEST/ABD PAIN Other details as noted in HPI Comment: All other systems reviewed and negative Constitutional: denies: chills, fever Respiratory: denies: cough, shortness of breath, SOB with exertion, SOB at rest Cardiovascular: denies: chest pain, palpitations, dyspnea on exertion Gastrointestinal: abdominal pain. denies: nausea, vomiting, diarrhea, constipation, hematemesis, melena, hematochezia Musculoskeletal: denies: back pain Neurological: denies: headache, weakness, numbness, paresthesias, confusion, abnormal gait ED Past Medical Hx - Past Medical History Hx CVA: Yes (patient states that it was not a CVA but seizures that caused her symptoms ) Hx Headaches / Migraines: Yes Hx Seizures: Yes (episode of Yao's paralysis) Additional medical history: OBESITY. FIBROIDS - Social History Smoking Status: Never Smoker Substance Use Type: Alcohol - Medications Home Medications: Home Medications Medication Instructions Recorded Confirmed Last Taken Type carBAMazepine [TEGretol] 200 mg PO Q8HR 12/06/14 08/10/21 08/10/21 06:19 History Ibuprofen [Motrin 800 MG tab] 800 mg PO Q8HR PRN #30 tablet 04/24/21 08/10/21 Unknown Rx Apixaban [Eliquis] 5 mg PO Q12H #60 tablet 08/10/21 Unknown Rx Apixaban [Eliquis] 10 mg PO Q12H 7 Days #28 tablet 08/10/21 Unknown Rx Ferrous Sulfate [Iron 325 MG] 325 mg PO TIDWM 08/10/21 08/10/21 Unknown History levETIRAcetam [Keppra TAB] 500 mg PO TID 08/10/21 08/10/21 Unknown History ED Physical Exam - General Limitations: No Limitations General appearance: alert, in no apparent distress - Head Head exam: Present: atraumatic, normocephalic, normal inspection - Eye Eye exam: Present: normal appearance, PERRL - ENT ENT exam: Present: normal exam, normal orophraynx, mucous membranes moist - Neck Neck exam: Present: normal inspection, full ROM. Absent: tenderness, meningismus - Respiratory Respiratory exam: Present: normal lung sounds bilaterally - Cardiovascular Cardiovascular Exam: Present: regular rate, normal rhythm, normal heart sounds - GI/Abdominal GI/Abdominal exam: Present: soft, normal bowel sounds. Absent: distended, tenderness, guarding, rebound, rigid, organomegaly, mass, bruit, pulsatile mass, hernia - Extremities Exam Extremities exam: Present: normal inspection, full ROM, normal capillary refill. Absent: tenderness - Back Exam Back exam: Present: normal inspection, full ROM. Absent: CVA tenderness (R), CVA tenderness (L) - Neurological Exam Neurological exam: Present: alert, oriented X3, CN II-XII intact - Psychiatric Psychiatric exam: Present: normal mood - Skin Skin exam: Present: warm, intact, normal color ED Course Vital Signs 09/23/21 09/23/21 09/23/21 14:06 16:00 16:07 Pulse Rate 87 Respiratory 18 Rate Blood Pressure Blood Pressure 151/76 [Left] O2 Sat by Pulse 100 99 100 Oximetry 09/23/21 17:00 Pulse Rate 65 Respiratory 24 Rate Blood Pressure 121/49 Blood Pressure [Left] O2 Sat by Pulse 100 Oximetry ED Medical Decision Making - Lab Data Result diagrams: 09/23/21 15:50 09/23/21 15:50 - Radiology Data Radiology results: report reviewed - Medical Decision Making Patient is 36 years old female with recent diagnosis of PE on Xarelto now. Patient presented to the ER stated that [place] and all of a sudden she started having lower abdominal pain mainly to the suprapubic area and left lower quadrant. Patient denied any nausea, vomiting or diarrhea. No urinary symptoms. Patient stated that she felt the pain went to her chest in the beginning but now she does not have any chest pain. She denied any shortness of breath, cough, fever or chills. Patient stated that she is compliant with her Xarelto. Labs reviewed and is unremarkable except for anemia. Urinalysis shows RBCs. Patient stated that she has vaginal bleeding on and off. 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 Patient received morphine and Zofran. Patient stated that she is feeling better. There is no clinical indication of pulmonary embolism at this moment. Patient advised to follow-up with her primary care physician in the next 2 to 3 days and to return to the ER if she develop any new symptoms. Critical care attestation.: If time is entered above; I have spent that time in minutes in the direct care of this critically ill patient, excluding procedure time. ED Disposition Clinical Impression: Acute abdominal pain, Uterine fibroid Disposition: HOME / SELF CARE / HOMELESS Is pt being admited?: No Condition: Stable Instructions: Abdominal Pain, Adult, [id number], Uterine Fibroids, [id number] Referrals: KINZA RASHID NP-C [Primary Care Provider] - 3-5 Days
[2021-09-23 16:09] LABS: Hematocrit 27.7 % (30.3-42.9); Hemoglobin 8.6 gm/dl (10.1-14.3); Mean Corpuscular HGB Conc 31 % (30-34); Mean Corpuscular Volume 79 fl (79-97); Platelet Count 262 K/mm3 (140-440); Red Blood Count 3.52 M/mm3 (3.65-5.03)
[2021-09-23 16:19] LABS: INR 1.26 (0.87-1.13)
[2021-09-23 16:27] LABS: Red Cell Distribution Width 27.1 % (13.2-15.2)
[2021-09-23 16:40] LABS: Alanine Aminotransferase 11 units/L (7-56); Albumin 3.7 g/dL (3.9-5); Blood Urea Nitrogen 5 mg/dL (7-17); Calcium 8.3 mg/dL (8.4-10.2); Hemolysis Index 3
[2021-09-23 16:40] LABS: Bilirubin,Urine NEG (Negative); Blood,Urine LG (Negative); Color,Urine Yellow (Yellow); Mucus,Urine FEW /HPF; Urobilinogen,Urine < 2.0 mg/dL (<2.0)
[2021-09-23 16:41] LABS: RBC,Urine > 182.0 /HPF (0.0-6.0)
[2021-09-23 16:50] LABS: BUN/Creatinine Ratio 8; Bilirubin,Direct < 0.2 mg/dL (0-0.2)
[2021-09-23 17:59] LABS: Anisocytosis 2+; Band Neutrophils # (Manual) 0.2 K/mm3; Hypochromasia 1+; Platelet Clumps Rare; Platelet Estimate Consistent w Auto; Total Cells Counted 100
--- NOTE | 2021-09-23 19:16 | Cat Scan Report ---
CT ABDOMEN AND PELVIS WITHOUT CONTRAST INDICATION / CLINICAL INFORMATION: ABDOMINAL PAIN. TECHNIQUE: Axial CT images were obtained through the abdomen and pelvis without IV contrast. All CT scans at [facility] location are performed using CT dose reduction for ALARA by means of automated exposure control. COMPARISON: CT abdomen and pelvis with contrast from 03/03/2019. FINDINGS: LOWER CHEST: No significant abnormality. LIVER: No significant abnormality. GALLBLADDER: There is cholelithiasis without evidence of acute cholecystitis. BILE DUCTS: No significant abnormality. PANCREAS: No significant abnormality. SPLEEN: No significant abnormality. ADRENALS: No significant abnormality. KIDNEYS / URETERS: No significant abnormality. STOMACH / SMALL BOWEL: No significant abnormality. COLON: No significant abnormality. APPENDIX: No significant abnormality. PERITONEUM: No free fluid. No free air. No fluid collection. LYMPH NODES: No significant adenopathy. AORTA / ARTERIES: No significant abnormality. IVC / VEINS: No significant abnormality. URINARY BLADDER: No significant abnormality. REPRODUCTIVE ORGANS: The uterus is enlarged and contains multiple masses likely representing fibroids . 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 Another mass located along the uterine body with indistinct margins measure s up to 7-8 cm on image 48 of the sagittal series. No significant adnexal abnormality. ADDITIONAL FINDINGS: None. BONES: No significant abnormality. IMPRESSION: 1. Enlarged uterus containing multiple suspected fibroids. A nonemergent pelvic ultrasound would be h elpful for further characterization. 2. No other acute findings. Signer Name: Baldemar Murillo MD Signed: 09/23/2021 7:12 PM Workstation Name: [id number]
[2021-09-23] MEDS ORDERED: ONDANSETRON 4 MG/2 ML INJ IV ONE (19:27)
[2021-09-23] MEDS ORDERED: MORPHINE 4 MG/1 ML INJ IV ONE (19:27)
[2021-09-23 20:13] VITALS: BP 130/70
== END 2021-09-23 20:08 | disposition home or self-care (01) ==
LOC: ED 14:01
DX: D25.9 Leiomyoma of uterus, unspecified (principal); R10.32 Left lower quadrant pain; Z86.73 Personal history of transient ischemic attack (TIA), and cerebral infarction without residual deficits; G43.909 Migraine, unspecified, not intractable, without status migrainosus; Z88.1 Allergy status to other antibiotic agents
CPT/HCPCS: 36415; 74176; 80048; 80076; 81001; 83690; 84703; 85007; 85025; 85610; 87086; 96374; 96375; 99284; J2270; J2405

== ENCOUNTER 2021-10-03 10:28 | Observation (INO) | payer OTHER ==
[2021-10-03] MEDS ORDERED: ONDANSETRON 4 MG/2 ML INJ IV ONE (10:51)
--- NOTE | 2021-10-03 11:12 | XRay Report ---
CHEST 1 VIEW 10/03/2021 10:55 AM INDICATION / CLINICAL INFORMATION: Chest pain. COMPARISON: 08/09/21 FINDINGS: SUPPORT DEVICES: None. HEART / MEDIASTINUM: No significant abnormality. LUNGS / PLEURA: No significant pulmonary or pleural abnormality. No pneumothorax. ADDITIONAL FINDINGS: No significant additional findings. IMPRESSION: 1. No acute findings. Signer Name: Snehal Kendrick MD Signed: 10/03/2021 11:07 AM Workstation Name: [employer]
--- NOTE | 2021-10-03 11:38 | Emergency Department Report ---
ED Chest Pain HPI - General Chief Complaint: Chest Pain Stated Complaint: CHEST PAIN Time Seen by Provider: 10/03/21 10:36 Source: patient Mode of arrival: Ambulatory Limitations: No Limitations - History of Present Illness Initial Comments: 36-year-old -[place] female presents to the emergency department with complaint of some midsternal left-sided chest pain with radiation towards the left shoulder. Initially this occurred last night but it improved slightly. This morning the patient woke up with the same pain but says it was more intens e. She says that it is associated with some nausea without vomiting and some mild shortness of breath. Earlier in the day the patient says that the pain was sharp, but now it is more of a dull ache, but she does say that it is 8 out of 10 in intensity. No known aggravating or alleviating factors. She denies any tobacco use or illicit drug use. She has not taken anything for her symptoms prior to presentation. The patient was recently diagnosed with a pulmonary embolism and has been on Xarelto and has been taking it compliantly. No recent travel. She does have some family history as her father had an LA in his mid to late 40s. - Related Data Home Medications Medication Instructions Recorded Confirmed Last Taken carBAMazepine [TEGretol] 200 mg PO Q8HR 12/06/14 08/10/21 08/10/21 06:19 Ferrous Sulfate [Iron 325 MG] 325 mg PO TIDWM 08/10/21 08/10/21 Unknown levETIRAcetam [Keppra TAB] 500 mg PO TID 08/10/21 08/10/21 Unknown Previous Rx's Medication Instructions Recorded Last Taken Type Ibuprofen [Motrin 800 MG tab] 800 mg PO Q8HR PRN #30 tablet 04/24/21 Unknown Rx Apixaban [Eliquis] 5 mg PO Q12H #60 tablet 08/10/21 Unknown Rx Apixaban [Eliquis] 10 mg PO Q12H 7 Days #28 tablet 08/10/21 Unknown Rx Ondansetron [Zofran Odt] 4 mg PO Q8HR PRN #14 tab.rapdis 09/23/21 Unknown Rx traMADoL [Ultram] 50 mg PO Q6HR PRN #14 tablet 09/23/21 Unknown Rx Allergies Allergy/AdvReac Type Severity Reaction Status Date / Time amoxicillin [Amoxicillin] Allergy Hives Verified 09/23/21 14:10 Heart Score - HEART Score History: Slightly suspicious EKG: Normal Age: < 45 Risk factors: 1-2 risk factors Troponin: < normal limit HEART Score: 1 - EKG Read Time Time EKG Completed: 10:41 EKG Read Time: 10:42 ED Review of Systems ROS: Stated complaint: CHEST PAIN Other details as noted in HPI Comment: All other systems reviewed and negative Constitutional: denies: chills, fever Eyes: denies: eye pain, vision change ENT: denies: ear pain, throat pain Respiratory: shortness of breath. denies: cough Cardiovascular: chest pain. denies: edema Gastrointestinal: nausea. denies: abdominal pain, vomiting Genitourinary: denies: dysuria, discharge Musculoskeletal: denies: back pain, arthralgia Skin: denies: rash, lesions Neurological: denies: headache, weakness ED Past Medical Hx - Past Medical History Previous Medical History?: Yes Hx CVA: Yes (patient states that it was not a CVA but seizures that caused her symptoms ) Hx Headaches / Migraines: Yes Hx Seizures: Yes (episode of Yao's paralysis) Additional medical history: OBESITY. FIBROIDS. PE - Social History Smoking Status: Never Smoker - Medications Home Medications: Home Medications Medication Instructions Recorded Confirmed Last Taken Type carBAMazepine [TEGretol] 200 mg PO Q8HR 12/06/14 08/10/21 08/10/21 06:19 History Ibuprofen [Motrin 800 MG tab] 800 mg PO Q8HR PRN #30 tablet 04/24/21 08/10/21 Unknown Rx Apixaban [Eliquis] 5 mg PO Q12H #60 tablet 08/10/21 Unknown Rx Apixaban [Eliquis] 10 mg PO Q12H 7 Days #28 tablet 08/10/21 Unknown Rx Ferrous Sulfate [Iron 325 MG] 325 mg PO TIDWM 08/10/21 08/10/21 Unknown History levETIRAcetam [Keppra TAB] 500 mg PO TID 08/10/21 08/10/21 Unknown History Ondansetron [Zofran Odt] 4 mg PO Q8HR PRN #14 tab.rapdis 09/23/21 Unknown Rx traMADoL [Ultram] 50 mg PO Q6HR PRN #14 tablet 09/23/21 Unknown Rx ED Physical Exam - General Limitations: No Limitations - Other Other exam information: GENERAL: The patient is well-developed well-nourished. HENT: Normocephalic. Atraumatic. Patient has moist mucous membranes. EYES: Extraocular motions are intact. NECK: Supple. Trachea is midline. CHEST/LUNGS: Clear to auscultation. There is no respiratory distress noted. There is some reproducible chest wall tenderness to palpation without crepitus or deformity. HEART/CARDIOVASCULAR: Regular. There is no tachycardia. There is no murmur. ABDOMEN: Abdomen is soft, nontender. Patient has normal bowel sounds. Morbidly obese habitus. SKIN: Skin is warm and dry. NEURO: The patient is awake, alert, and oriented. The patient is cooperative. Normal speech. MUSCULOSKELETAL: There is no tenderness or deformity. There is no limitation range of motion. ED Course Vital Signs 10/03/21 10/03/21 10/03/21 10:32 10:36 10:46 Temperature 98 F Pulse Rate 68 Respiratory 18 Rate Blood Pressure 142/80 Blood Pressure 152/68 [Right] O2 Sat by Pulse 96 100 100 Oximetry 10/03/21 10/03/21 10/03/21 11:07 11:16 11:18 Temperature Pulse Rate 64 Respiratory 20 Rate Blood Pressure 137/81 Blood Pressure [Right] O2 Sat by Pulse 99 99 99 Oximetry 10/03/21 10/03/21 10/03/21 11:30 11:46 12:02 Temperature Pulse Rate 52 L 62 Respiratory 23 21 13 Rate Blood Pressure 143/81 133/80 133/80 Blood Pressure [Right] O2 Sat by Pulse 99 99 77 L Oximetry 10/03/21 10/03/21 10/03/21 12:16 12:30 12:48 Temperature Pulse Rate 56 L 69 Respiratory 23 23 27 H Rate Blood Pressure 128/73 121/64 133/80 Blood Pressure [Right] O2 Sat by Pulse 99 99 100 Oximetry 10/03/21 10/03/21 10/03/21 13:00 13:16 13:30 Temperature Pulse Rate 55 L 51 L 55 L Respiratory 25 H 26 H 26 H Rate Blood Pressure 132/72 134/69 132/72 Blood Pressure [Right] O2 Sat by Pulse 99 100 100 Oximetry - Reevaluation(s) Reevaluation #1: 10/03/21 13:42 Upon reevaluation of the patient she is saying now that she has numbness along the left side of her body and feels like she has difficulty moving her arm. She does have her arm elevated and does not have any obvious pronator drift, but dario aponte says that she has decreased sensation. During my patient also appears to have some left-sided facial asymmetry. The patient will not be a TPA candidate, but a code stroke has been initiated. She will have a CT scan of the head without contrast and a teleneurology consultation. - Consultations Consultation #1: 10/03/21 15:14 Patient was seen by the telemedicine neurologist, Dr. Mabry. His full recommendations are in the chart but he requested the patient have a CT angiography of the head and neck and then an admission for MRI and further stroke work-up. The patient is not a TPA candidate as she is on chronic anticoagulation. JAIDEN score - Jaiden Score Age > 65: (0) No Aspirin use within the Past 7 Days: (0) No 3 or more CAD Risk Factors: (0) No 2 or more Angina events in past 24 hrs: (1) Yes Known CAD with more than 50% Stenosis: (0) No Elevated Cardiac Markers: (0) No ST Deviation Greater than 0.5mm: (0) No JAIDEN Score: 1 ED Medical Decision Making - Lab Data Result diagrams: 10/03/21 10:51 10/03/21 10:51 Lab Results 10/03/21 10/03/21 10/03/21 Range/Units 10:51 10:51 13:44 WBC 3.8 L (4.5-11.0) K/mm3 RBC 3.79 (3.65-5.03) M/mm3 Hgb 9.7 L (10.1-14.3) gm/dl Hct 31.2 (30.3-42.9) % MCV 82 (79-97) fl MCH 25 L (28-32) pg MCHC 31 (30-34) % RDW 26.6 H (13.2-15.2) % Plt Count 273 (140-440) K/mm3 [place] % (Auto) 7.8 H (0.0-7.3) % Eos % (Auto) 2.4 (0.0-4.3) % [place] # (Auto) 0.3 (0.0-0.8) K/mm3 Eos # (Auto) 0.1 (0.0-0.4) K/mm3 Baso # (Auto) 0.0 (0.0-0.1) K/mm3 Add Manual Diff Complete Total Counted 100 Seg Neutrophils % 65.5 (40.0-70.0) % Seg Neuts % (Manual) 72.0 H (40.0-70.0) % Lymphocytes % (Manual) 16.0 (13.4-35.0) % Monocytes % (Manual) 6.0 (0.0-7.3) % Eosinophils % (Manual) 3.0 (0.0-4.3) % Basophils % (Manual) 3.0 H (0.0-1.8) % Nucleated RBC % Not Reportable Seg Neutrophils # 2.5 (1.8-7.7) K/mm3 Seg Neutrophils # Man 2.7 (1.8-7.7) K/mm3 Band Neutrophils # 0.0 K/mm3 Lymphocytes # (Manual) 0.6 L (1.2-5.4) K/mm3 Abs React Lymphs (Man) 0.0 K/mm3 Monocytes # (Manual) 0.2 (0.0-0.8) K/mm3 Eosinophils # (Manual) 0.1 (0.0-0.4) K/mm3 Basophils # (Manual) 0.1 (0.0-0.1) K/mm3 Metamyelocytes # 0.0 K/mm3 Myelocytes # 0.0 K/mm3 Promyelocytes # 0.0 K/mm3 Blast Cells # 0.0 K/mm3 WBC Morphology Not Reportable Hypersegmented Neuts Not Reportable Hyposegmented Neuts Not Reportable Hypogranular Neuts Not Reportable Smudge Cells Not Reportable Toxic Granulation Not Reportable Toxic Vacuolation Not Reportable Dohle Bodies Not Reportable Pelger-Huet Anomaly Not Reportable [place] Rods Not Reportable Platelet Estimate Consistent w auto Clumped Platelets Not Reportable Plt Clumps, EDTA Not Reportable Large Platelets Few Giant Platelets Not Reportable Platelet Satelliting Not Reportable Plt Morphology Comment Not Reportable RBC Morphology Not Reportable Dimorphic RBCs Not Reportable Polychromasia Few Hypochromasia 1+ Poikilocytosis Not Reportable Anisocytosis 2+ Microcytosis Not Reportable Macrocytosis Not Reportable Spherocytes Not Reportable Pappenheimer Bodies Not Reportable Sickle Cells Not Reportable Target Cells Not Reportable Tear Drop Cells Not Reportable Ovalocytes Not Reportable Helmet Cells Not Reportable [place] Bodies Not Reportable [place] Rings Not Reportable Johnson Cells Not Reportable Bite Cells Not Reportable Crenated Cell Not Reportable Elliptocytes Not Reportable Acanthocytes (Spur) Not Reportable Rouleaux Not Reportable Hemoglobin C Crystals Not Reportable Schistocytes Not Reportable Malaria parasites Not Reportable [place] Bodies Not Reportable Hem Pathologist Commnt No PT (12.2-14.9) Sec. INR (0.87-1.13) APTT (24.2-36.6) Sec. Thrombin Time (15.1-19.6) Sec. Sodium 140 (137-145) mmol/L Potassium 3.8 (3.6-5.0) mmol/L Chloride 108.1 H (98-107) mmol/L Carbon Dioxide 20 L (22-30) mmol/L Anion Gap 16 mmol/L BUN 7 (7-17) mg/dL Creatinine 0.7 (0.6-1.2) mg/dL Estimated GFR > 60 ml/min BUN/Creatinine Ratio 10 % Glucose 91 (65-100) mg/dL Calcium 8.2 L (8.4-10.2) mg/dL Troponin T < 0.010 < 0.010 (0.00-0.029) ng/mL 10/03/21 Range/Units 13:44 WBC (4.5-11.0) K/mm3 RBC (3.65-5.03) M/mm3 Hgb (10.1-14.3) gm/dl Hct (30.3-42.9) % MCV (79-97) fl MCH (28-32) pg MCHC (30-34) % RDW (13.2-15.2) % Plt Count (140-440) K/mm3 [place] % (Auto) (0.0-7.3) % Eos % (Auto) (0.0-4.3) % [place] # (Auto) (0.0-0.8) K/mm3 Eos # (Auto) (0.0-0.4) K/mm3 Baso # (Auto) (0.0-0.1) K/mm3 Add Manual Diff Total Counted Seg Neutrophils % (40.0-70.0) % Seg Neuts % (Manual) (40.0-70.0) % Lymphocytes % (Manual) (13.4-35.0) % Monocytes % (Manual) (0.0-7.3) % Eosinophils % (Manual) (0.0-4.3) % Basophils % (Manual) (0.0-1.8) % Nucleated RBC % Seg Neutrophils # (1.8-7.7) K/mm3 Seg Neutrophils # Man (1.8-7.7) K/mm3 Band Neutrophils # K/mm3 Lymphocytes # (Manual) (1.2-5.4) K/mm3 Abs React Lymphs (Man) K/mm3 Monocytes # (Manual) (0.0-0.8) K/mm3 Eosinophils # (Manual) (0.0-0.4) K/mm3 Basophils # (Manual) (0.0-0.1) K/mm3 Metamyelocytes # K/mm3 Myelocytes # K/mm3 Promyelocytes # K/mm3 Blast Cells # K/mm3 WBC Morphology Hypersegmented Neuts Hyposegmented Neuts Hypogranular Neuts Smudge Cells Toxic Granulation Toxic Vacuolation Dohle Bodies Pelger-Huet Anomaly [place] Rods Platelet Estimate Clumped Platelets Plt Clumps, EDTA Large Platelets Giant Platelets Platelet Satelliting Plt Morphology Comment RBC Morphology Dimorphic RBCs Polychromasia Hypochromasia Poikilocytosis Anisocytosis Microcytosis Macrocytosis Spherocytes Pappenheimer Bodies Sickle Cells Target Cells Tear Drop Cells Ovalocytes Helmet Cells [place] Bodies [place] Rings [place] Cells Bite Cells Crenated Cell Elliptocytes Acanthocytes (Spur) Rouleaux Hemoglobin C Crystals Schistocytes Malaria parasites [place] Bodies Hem Pathologist Commnt PT 16.6 H (12.2-14.9) Sec. INR 1.21 H (0.87-1.13) APTT 31.8 (24.2-36.6) Sec. Thrombin Time 15.1 (15.1-19.6) Sec. Sodium (137-145) mmol/L Potassium (3.6-5.0) mmol/L Chloride (98-107) mmol/L Carbon Dioxide (22-30) mmol/L Anion Gap mmol/L BUN (7-17) mg/dL Creatinine (0.6-1.2) mg/dL Estimated GFR ml/min BUN/Creatinine Ratio % Glucose (65-100) mg/dL Calcium (8.4-10.2) mg/dL Troponin T (0.00-0.029) ng/mL - EKG Data -: EKG Interpreted by Me EKG shows normal: sinus rhythm, axis, intervals, QRS complexes, ST-T waves Rate: normal - EKG Data When compared to previous EKG there are: no significant change Interpretation: unchanged when compared t (08/09/21) - Radiology Data Radiology results: report reviewed, image reviewed interpreted by me: Chest x-ray does not show any acute process. There are no pleural effusions, obvious pneumonia and there is no pneumothorax. No widened mediastinum. CT head/brain wo con INDICATION / CLINICAL INFORMATION: 36 years Female; code stroke call [phone]. TECHNIQUE: Routine CT head without contrast. All CT scans at this location are performed using CT dose reduction for ALACatacel by means of automated exposure control. COMPARISON: 01/29/2021 FINDINGS: BRAIN / INTRACRANIAL CONTENTS: No acute hemorrhage, mass effect, midline shift, hydrocephalus, or acute, large territorial infarct. No signs of significant atrophy or chronic infarct. No significant white matter abnormality seen. CRANIOCERVICAL JUNCTION: No significant abnormality. ORBITS: No significant abnormality of visualized orbits. SINUSES / MASTOIDS: Visualized paranasal sinuses and mastoid air cells are essentially clear. ADDITIONAL FINDINGS: None. IMPRESSION: 1. No focal mass, hemorrhage, hydrocephalus, or acute, large territorial infarct. CT angio neck INDICATION / CLINICAL INFORMATION: 36 years Female; CVA 100 ml omni 350 . TECHNIQUE: Thin cut axial images obtained through the head during IV bolus contrast administration. Sagittal, coronal, and 3 plane MIP reconstructions performed by the technologist. NASCET type criteria used evaluate stenoses. All CT scans at this location are performed using CT dose reduction for ALARA by means of automated exposure control. COMPARISON: None available. FINDINGS: CAROTID ARTERIES: The motion and beam hardening significantly degrades the image quality. However, there is no clear evidence of significant stenosis involving cervical carotid arteries by NASCET criteria. The carotid bifurcations are widely patent. VERTEBRAL ARTERIES: The degree of a rtifact also obscures the vertebral arteries, particularly the proximal segments at. However, there is no significant focal stenosis involving the vertebral arteries. 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 ARCH: There is no clear evidence of significant stenosis involving origins of the arch vessels. ADDITIONAL FINDINGS: Remainder of the surrounding soft tissues are grossly normal. IMPRESSION: There is no CTA evidence of significant stenosis involving the cervical carotid or vertebral arteries by NASCET criteria. CT angio head INDICATION / CLINICAL INFORMATION: 36 years Female; CVA 100 ml omni 350 . TECHNIQUE: Thin cut axial images obtained through the head during IV bolus contrast administration. Sagittal, coronal, and 3 plane MIP reconstructions performed by the technologist. NASCET type criteria used evaluate stenoses. Automated exposure control utilized for radiation reduction purposes. COMPARISON: None available. FINDINGS: INTERNAL CAROTID ARTERIES: There is no significant focal stenosis involving distal internal carotid arteries by NASCET criteria. VERTEBROBASILAR SYSTEM: The vertebrobasilar system also demonstrate appropriate caliber without significant focal narrowing. CEREBRAL ARTERIES: The proximal cerebral arteries and adjacent segments appear to demonstrate appropriate caliber without clear CT evidence of large vessel occlusion amenable to endovascular treatment. ANEURYSM: None identified. ADDITIONAL FINDINGS: The dural venous sinuses appear to opacify with contrast. IMPRESSION: There is no CTA evidence of large vessel occlusion amenable to endovascular therapy; correlation would be needed given history of unspecified "CVA" and code stroke protocol.. - Medical Decision Making This patient initially presented with a complaint of some midsternal to left- sided chest pain with radiation towards the left arm and shoulder. Heart and lung sounds are normal to auscultation. The patient does not appear in any respiratory or acute distress. EKG does not have any morphology consistent with ST elevation myocardial infarction. Chest x-ray does not show any pneumonia, pleural effusions, pneumothorax, widened mediastinum, or any other acute process. Labs thus far have been unremarkable including CBC, metabolic panel and a negative first troponin. During the patient's cardiac work-up she complained to the nurse that she was having left-sided weakness, numbness. I went to evaluate the patient and she has subjective decreased sensation to the left arm and leg when compared to the right. The patient has some facial asymmetry with left-sided nasolabial fold paresis. At the time of my reevaluation the patient does not have any obvious left-sided weakness. However given the acute onset of the numbness and facial asymmetry I initiated a code stroke. The patient was seen by the telemedicine neurologist who says that the patient displayed left lower extremity weakness at that time. The patient is not a TPA candidate as she is on chronic anticoagulation, but he recommended CT head without contrast followed by CT head and neck angiography studies. All of these CT scans were negative for any acute process including hemorrhage, large vessel occlusion, stenosis. Vital signs of been reassuring throughout her ED course thus far. The patient will be admitted to the hospital for further evaluation and treatment and was accepted for patient by the hospitalist, Dr. Helm. Critical Care Time: No Critical care attestation.: If time is entered above; I have spent that time in minutes in the direct care of this critically ill patient, excluding procedure time. ED Disposition Clinical Impression: Acute chest pain, Left-sided weakness, Left sided numbness Disposition: ADMITTED INPATIENT Is pt being admited?: Yes Condition: Serious Instructions: Chest Pain (ED) Referrals: PRIMARY CAREMD [Primary Care Provider] - 3-5 Days Time of Disposition: 15:22
[2021-10-03 11:49] LABS: Hematocrit 31.2 % (30.3-42.9); Hemoglobin 9.7 gm/dl (10.1-14.3); Mean Corpuscular HGB Conc 31 % (30-34); Mean Corpuscular Volume 82 fl (79-97); Platelet Count 273 K/mm3 (140-440); Red Blood Count 3.79 M/mm3 (3.65-5.03)
[2021-10-03 11:56] LABS: Red Cell Distribution Width 26.6 % (13.2-15.2)
[2021-10-03 12:04] LABS: Blood Urea Nitrogen 7 mg/dL (7-17); Calcium 8.2 mg/dL (8.4-10.2); Hemolysis Index 4
[2021-10-03 12:05] LABS: Eosinophils # (Auto) 0.1 K/mm3 (0.0-0.4); Eosinophils % (Auto) 2.4 % (0.0-4.3); Monocytes # (Auto) 0.3 K/mm3 (0.0-0.8); Monocytes % (Auto) 7.8 % (0.0-7.3)
[2021-10-03 12:09] LABS: BUN/Creatinine Ratio 10
[2021-10-03] MEDS ORDERED: KETOROLAC 30 MG/1 ML INJ IM ONE (12:27)
[2021-10-03] MEDS ORDERED: CYCLOBENZAPRINE 10 MG TAB PO ONE (12:27)
[2021-10-03 12:39] LABS: Total Cells Counted 100
[2021-10-03 12:40] LABS: Anisocytosis 2+; Hypochromasia 1+; Large Platelets Few; Platelet Estimate Consistent w Auto
--- NOTE | 2021-10-03 14:02 | Consultation ---
History of Present Illness - Reason for Consult Consult date: 10/03/21 - History of Present Illness [facility] Consult Note # Demographics Consult Type: General Neurology Patient Location: Emergency Room First Name: February Last Name: Neal Date of : 1985 Age: 36 Gender: Female Facility: [facility] Time of Initial Page ( Time): 10/03/2021, 13:43 Time of Return Call ( Time): 10/03/2021, 13:44 # HPI History: 36yo woman who presented to the ED with chest pain and shoulder pain. She feels she has left sided weakness also, starting 20-30 minute ago. She states this started in the ED at around 106PM. She denies back. # Scores Time of exam and NIHSS ( Time): 10/03/2021, 13:52 Level of Consciousness 1a: [0] = Alert; keenly responsive LOC Questions 1b: [0] = Answers both questions correctly LOC Commands 1c: [0] = Performs both tasks correctly Best Gaze 2: [0] = Normal Visual 3: [0] = No visual loss Facial Palsy 4: [0] = Normal symmetrical movements Motor Arm Left 5a: [0] = No drift Motor Arm Right 5b: [0] = No drift Motor Leg Left 6a: [1] = Drift Motor Leg Right 6b: [0] = No drift Limb Ataxia 7: [0] = Absent Sensory 8: [0] = Normal Best Language 9: [0] = No aphasia Dysarthria 10: [0] = Normal Extinction and Inattention 11: [0] = No abnormality NIHSS Total: 1 # Exam Vitals: vital signs reviewed Additional Neurologic Exam: variable left arm and leg weakness # [id number] Past Medical History: seizure Medications: NOAC # Assessment Impression: Ischemic Stroke (Acute) # Plan Thrombolytic/Intervention: Possible IA candidate Thrombolytic Exclusion (< 3 hour window): actively on NOAC Possible IA Candidate: CTA pending Target Blood Pressure: SBP < 220 Labs: ESR lipid panel Imaging: (urgency: STAT): CT Angiogram Head and CT Angiogram Neck AND call back with results if abnormal Imaging: (urgency: routine): MRI Brain without contrast Diagnostic Test: echo without bubble study Therapy/Evaluation: NPO until swallow evaluation PT/OT evaluation speech/swallow consultation Medication: aspirin 81 mg daily anticoagulation with NOAC DVT Prophylaxis: SCD Other: permissive hypertension telemetry monitoring I have discussed my recommendations with the referring provider Disposition: admit Medications and Allergies Allergies Allergy/AdvReac Type Severity Reaction Status Date / Time amoxicillin [Amoxicillin] Allergy Hives Verified 09/23/21 14:10 Home Medications Medication Instructions Recorded Confirmed Last Taken Type carBAMazepine [TEGretol] 200 mg PO Q8HR 12/06/14 08/10/21 08/10/21 06:19 History Ibuprofen [Motrin 800 MG tab] 800 mg PO Q8HR PRN #30 tablet 04/24/21 08/10/21 Unknown Rx Apixaban [Eliquis] 5 mg PO Q12H #60 tablet 08/10/21 Unknown Rx Apixaban [Eliquis] 10 mg PO Q12H 7 Days #28 tablet 08/10/21 Unknown Rx Ferrous Sulfate [Iron 325 MG] 325 mg PO TIDWM 08/10/21 08/10/21 Unknown History levETIRAcetam [Keppra TAB] 500 mg PO TID 08/10/21 08/10/21 Unknown History Ondansetron [Zofran Odt] 4 mg PO Q8HR PRN #14 tab.rapdis 09/23/21 Unknown Rx traMADoL [Ultram] 50 mg PO Q6HR PRN #14 tablet 09/23/21 Unknown Rx Exam - Constitutional Vitals: Temp Pulse Resp BP Pulse Ox 98 F 55 L 26 H 132/72 100 10/03/21 10:32 10/03/21 13:30 10/03/21 13:30 10/03/21 13:30 10/03/21 13:30 Results - Labs CBC & Chem 7: 10/03/21 10:51 10/03/21 10:51 Labs: Abnormal lab results 10/03/21 10/03/21 Range/Units 10:51 10:51 WBC 3.8 L (4.5-11.0) K/mm3 Hgb 9.7 L (10.1-14.3) gm/dl MCH 25 L (28-32) pg RDW 26.6 H (13.2-15.2) % [place] % (Auto) 7.8 H (0.0-7.3) % Seg Neuts % (Manual) 72.0 H (40.0-70.0) % Basophils % (Manual) 3.0 H (0.0-1.8) % Lymphocytes # (Manual) 0.6 L (1.2-5.4) K/mm3 Chloride 108.1 H (98-107) mmol/L Carbon Dioxide 20 L (22-30) mmol/L Calcium 8.2 L (8.4-10.2) mg/dL
[2021-10-03 14:05] LABS: INR 1.21 (0.87-1.13)
[2021-10-03 14:06] LABS: Partial Thromboplastin Time 31.8 Sec. (24.2-36.6); Thrombin Time 15.1 Sec. (15.1-19.6)
[2021-10-03] MEDS ORDERED: PROMETHAZINE 25 MG RECT SUPP PR PRN (15:08)
[2021-10-03] MEDS ORDERED: ACETAMINOPHEN 325 MG TAB PO PRN (15:08)
[2021-10-03] MEDS ORDERED: oxyCODONE /ACETAMINOPHEN 5-325MG TAB PO PRN (15:08)
[2021-10-03] MEDS ORDERED: METOCLOPRAMIDE 10 MG/2 ML INJ IV PRN (15:08)
[2021-10-03] MEDS ORDERED: ONDANSETRON 4 MG/2 ML INJ IV PRN ×2 (15:08→23:21)
--- NOTE | 2021-10-03 15:14 | Cat Scan Report ---
CT head/brain wo con INDICATION / CLINICAL INFORMATION: 36 years Female; code stroke call [phone]. TECHNIQUE: Routine CT head without contrast. All CT scans at this location are performed using CT dos e reduction for ALARA by means of automated exposure control. COMPARISON: 01/29/2021 FINDINGS: BRAIN / INTRACRANIAL CONTENTS: No acute hemorrhage, mass effect, midline shift, hydrocephalus, or acu te, large territorial infarct. No signs of significant atrophy or chronic infarct. No significant whi te matter abnormality seen. CRANIOCERVICAL JUNCTION: No significant abnormality. ORBITS: No significant abnormality of visualized orbits. SINUSES / MASTOIDS: Visualized paranasal sinuses and mastoid air cells are essentially clear. ADDITIONAL FINDINGS: None. IMPRESSION: 1. No focal mass, hemorrhage, hydrocephalus, or acute, large territorial infarct. CODE STROKE: Exam Completed (PLANT AND EQUIPMENT WORKER/CDT): 10/03/2021 1:37 PM Exam Reviewed (PLANT AND EQUIPMENT WORKER/CDT): 1:43 PM Time of Communication (PLANT AND EQUIPMENT WORKER/CDT): 1:46 PM Licensed Practitioner Receiving Report: Dr. Bergeron Signer Name: Sukhjinder Davalos MD, III Signed: 10/03/2021 2:46 PM Workstation Name: [email or web address]
--- NOTE | 2021-10-03 15:14 | Cat Scan Report ---
CT angio head INDICATION / CLINICAL INFORMATION: 36 years Female; CVA 100 ml omni 350 . TECHNIQUE: Thin cut axial images obtained through the head during IV bolus contrast administration. S agittal, coronal, and 3 plane MIP reconstructions performed by the technologist. NASCET type criteria used evaluate stenoses. Automated exposure control utilized for radiation reduction purposes. COMPARISON: None available. FINDINGS: INTERNAL CAROTID ARTERIES: There is no significant focal stenosis involving distal internal carotid a rteries by NASCET criteria. VERTEBROBASILAR SYSTEM: The vertebrobasilar system also demonstrate appropriate caliber without signi ficant focal narrowing. CEREBRAL ARTERIES: The proximal cerebral arteries and adjacent segments appear to demonstrate appropr iate caliber without clear CT evidence of large vessel occlusion amenable to endovascular treatment. ANEURYSM: None identified. ADDITIONAL FINDINGS: The dural venous sinuses appear to opacify with contrast. IMPRESSION: There is no CTA evidence of large vessel occlusion amenable to endovascular therapy; correlation woul d be needed given history of unspecified "CVA" and code stroke protocol.. Signer Name: Francis Nielsen MD Signed: 10/03/2021 2:49 PM Workstation Name: [id number]
--- NOTE | 2021-10-03 15:16 | Cat Scan Report ---
CT angio neck INDICATION / CLINICAL INFORMATION: 36 years Female; CVA 100 ml omni 350 . TECHNIQUE: Thin cut axial images obtained through the head during IV bolus contrast administration. S agittal, coronal, and 3 plane MIP reconstructions performed by the technologist. NASCET type criteria used evaluate stenoses. All CT scans at this location are performed using CT dose reduction for ALAR A by means of automated exposure control. COMPARISON: None available. FINDINGS: CAROTID ARTERIES: The motion and beam hardening significantly degrades the image quality. However, th ere is no clear evidence of significant stenosis involving cervical carotid arteries by NASCET criter ia. The carotid bifurcations are widely patent. VERTEBRAL ARTERIES: The degree of artifact also obscures the vertebral arteries, particularly the pro ximal segments at. However, there is no significant focal stenosis involving the vertebral arteries. 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 ARCH: There is no clear evidence of significant stenosis involving origins of the arch vessels. ADDITIONAL FINDINGS: Remainder of the surrounding soft tissues are grossly normal. IMPRESSION: There is no CTA evidence of significant stenosis involving the cervical carotid or vertebral arteries by NASCET criteria. Signer Name: Francis Nielsen MD Signed: 10/03/2021 2:53 PM Workstation Name: [id number]
[2021-10-03] MEDS: HEPARIN 5,000 UNIT/1 ML VIAL SUB-Q SCH (15:45)
[2021-10-03] MEDS ORDERED: traMADol 50 MG TAB PO PRN (23:01)
[2021-10-04] MEDS: carBAMazepine 200 MG TAB PO SCH ×2 (00:26→09:08)
--- NOTE | 2021-10-04 07:28 | History and Physical Report ---
History of Present Illness Date of examination: 10/03/21 Date of admission: 10/03/21 15:09 Chief complaint: Chest pain since last night History of present illness: 36-year-old -Turkish female presents to the emergency department with complaint of some midsternal left-sided chest pain with radiation towards the left shoulder. Initially this occurred last night but it improved slightly. This morning the patient woke up with the same pain but says it was more intense. She says that it is associated with some nausea without vomiting and some mild shortness of breath. Earlier in the day the patient says that the pain was sharp, but now it is more of a dull ache, but she does say that it is 8 out of 10 in intensity. No known aggravating or alleviating factors. She denies any tobacco use or illicit drug use. She has not taken anything for her symptoms prior to presentation. The patient was recently diagnosed with a pulmonary embolism and has been on Xarelto and has been taking it compliantly. No recent travel. She does have some family history as her father had an RI in his mid to late 40s. 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 Heart Score - HEART Score History: Slightly suspicious EKG: Normal Age: < 45 Risk factors: 1-2 risk factors Troponin: < normal limit HEART Score: 1 - Past Medical History --Previous Medical History?: Yes --Seizures: Yes (episode of Yao's paralysis) --Additional medical history: OBESITY. FIBROIDS. PE - Social History Smoking Status: Never Smoker - Medications Home Medications: Home Medications Medication Instructions Recorded Confirmed Last Taken Type carBAMazepine [TEGretol] 200 mg PO Q8HR 12/06/14 08/10/21 08/10/21 06:19 History Ibuprofen [Motrin 800 MG tab] 800 mg PO Q8HR PRN #30 tablet 04/24/21 08/10/21 Unknown Rx Apixaban [Eliquis] 5 mg PO Q12H #60 tablet 08/10/21 Unknown Rx Apixaban [Eliquis] 10 mg PO Q12H 7 Days #28 tablet 08/10/21 Unknown Rx Ferrous Sulfate [Iron 325 MG] 325 mg PO TIDWM 08/10/21 08/10/21 Unknown History levETIRAcetam [Keppra TAB] 500 mg PO TID 08/10/21 08/10/21 Unknown History Ondansetron [Zofran Odt] 4 mg PO Q8HR PRN #14 tab.rapdis 09/23/21 Unknown Rx traMADoL [Ultram] 50 mg PO Q6HR PRN #14 tablet 09/23/21 Unknown Rx Review of Systems ROS: Stated complaint: CHEST PAIN Other details as noted in HPI Comment: All other systems reviewed and negative Constitutional: denies: chills, fever Eyes: denies: eye pain, vision change ENT: denies: ear pain, throat pain Respiratory: shortness of breath. denies: cough Cardiovascular: chest pain. denies: edema Gastrointestinal: nausea. denies: abdominal pain, vomiting Genitourinary: denies: dysuria, discharge Musculoskeletal: denies: back pain, arthralgia Skin: denies: rash, lesions Neurological: denies: headache, weakness Medications and Allergies Allergies Allergy/AdvReac Type Severity Reaction Status Date / Time amoxicillin [Amoxicillin] Allergy Hives Verified 09/23/21 14:10 Home Medications Medication Instructions Recorded Confirmed Last Taken Type carBAMazepine [TEGretol] 200 mg PO Q8HR 12/06/14 10/03/21 10/03/21 08:00 History Ferrous Sulfate [Iron 325 MG] 325 mg PO TID 08/10/21 10/03/21 10/03/21 08:00 History levETIRAcetam [Keppra TAB] 500 mg PO TID 08/10/21 10/03/21 10/03/21 08:00 History Ondansetron [Zofran Odt] 4 mg PO Q8HR PRN #14 tab.rapdis 09/23/21 10/03/21 10/02/21 18:00 Rx traMADoL [Ultram] 50 mg PO Q6HR PRN #14 tablet 09/23/21 10/03/21 10/01/21 12:00 Rx Rivaroxaban [Xarelto] 20 mg PO QDAY 10/03/21 10/03/21 10/02/21 22:00 History Active Meds: Active Medications Acetaminophen (Acetaminophen 325 Mg Tab) 650 mg PO Q4H PRN PRN Reason: Pain MILD(1-3)/Fever >100.5/NAVA Carbamazepine (Carbamazepine 200 Mg Tab) 200 mg PO Q8H GEORGIE Last Admin: 10/04/21 00:26 Dose: 200 mg Documented by: Ferrous Sulfate (Ferrous Sulfate 325 Mg Tab) 325 mg PO TID [facility] Levetiracetam (Levetiracetam 500 Mg Tab) 500 mg PO TID [facility] Metoclopramide HCl (Metoclopramide 10 Mg/2 Ml Inj) 10 mg IV Q6H PRN PRN Reason: Nausea And Vomiting Ondansetron HCl (Ondansetron 4 Mg/2 Ml Inj) 4 mg IV Q8H PRN PRN Reason: Nausea And Vomiting Oxycodone/Acetaminophen (Oxycodone /Acetaminophen 5-325mg Tab) 1 tab PO Q6H PRN PRN Reason: Pain, Moderate (4-6) Promethazine HCl (Promethazine 25 Mg Rect Supp) 25 mg SD Q6H PRN PRN Reason: N/V IF NPO AND NO IV ACCESS Rivaroxaban (Rivaroxaban 20 Mg Tab) 20 mg PO QDDIAB [facility] Sodium Chloride (Sodium Chloride 0.9% 10 Ml Flush Syringe) 10 ml IV BID GEORGIE Sodium Chloride (Sodium Chloride 0.9% 10 Ml Flush Syringe) 10 ml IV PRN PRN PRN Reason: LINE FLUSH Tramadol HCl (Tramadol 50 Mg Tab) 50 mg PO Q6H PRN PRN Reason: Pain, Moderate (4-6) Exam - Constitutional Vitals: Temp Pulse Resp BP Pulse Ox 98.4 F 66 18 107/57 97 10/04/21 03:39 10/04/21 03:39 10/04/21 03:39 10/04/21 03:39 10/04/21 03:39 General appearance: Present: no acute distress, well-nourished - EENT Eyes: Present: PERRL ENT: hearing intact, clear oral mucosa - Neck Neck: Present: supple, normal ROM - Respiratory Respiratory effort: normal Respiratory: bilateral: CTA - Cardiovascular Heart rate: 78 Rhythm: regular Heart Sounds: Present: S1 & S2. Absent: rub, click - Extremities Extremities: pulses symmetrical, No edema Peripheral Pulses: within normal limits - Abdominal General gastrointestinal: Present: soft, non-tender, non-distended, normal bowel sounds Female genitourinary: Present: normal - Integumentary Integumentary: Present: clear, warm, dry - Musculoskeletal Musculoskeletal: gait normal, strength equal bilaterally - Psychiatric Psychiatric: appropriate mood/affect, intact judgment & insight - Neurologic Neurologic: CNII-XII intact, moves all extremities HEART Score - HEART Score EKG: Normal Age: < 45 Risk factors: 1-2 risk factors Troponin: Troponin T < 0.010 ng/mL (0.00-0.029) 10/03/21 17:53 Troponin: < normal limit Results - Labs CBC & Chem 7: 10/03/21 10:51 10/03/21 10:51 Labs: Laboratory Last Values WBC 3.8 K/mm3 (4.5-11.0) L 10/03/21 10:51 RBC 3.79 M/mm3 (3.65-5.03) 10/03/21 10:51 Hgb 9.7 gm/dl (10.1-14.3) L 10/03/21 10:51 Hct 31.2 % (30.3-42.9) 10/03/21 10:51 MCV 82 fl (79-97) 10/03/21 10:51 MCH 25 pg (28-32) L 10/03/21 10:51 MCHC 31 % (30-34) 10/03/21 10:51 RDW 26.6 % (13.2-15.2) H 10/03/21 10:51 Plt Count 273 K/mm3 (140-440) 10/03/21 10:51 [place] % (Auto) 7.8 % (0.0-7.3) H 10/03/21 10:51 Eos % (Auto) 2.4 % (0.0-4.3) 10/03/21 10:51 [place] # (Auto) 0.3 K/mm3 (0.0-0.8) 10/03/21 10:51 Eos # (Auto) 0.1 K/mm3 (0.0-0.4) 10/03/21 10:51 Baso # (Auto) 0.0 K/mm3 (0.0-0.1) 10/03/21 10:51 Add Manual Diff Complete 10/03/21 10:51 Total Counted 100 10/03/21 10:51 Seg Neutrophils % 65.5 % (40.0-70.0) 10/03/21 10:51 Seg Neuts % (Manual) 72.0 % (40.0-70.0) H 10/03/21 10:51 Lymphocytes % (Manual) 16.0 % (13.4-35.0) 10/03/21 10:51 Monocytes % (Manual) 6.0 % (0.0-7.3) 10/03/21 10:51 Eosinophils % (Manual) 3.0 % (0.0-4.3) 10/03/21 10:51 Basophils % (Manual) 3.0 % (0.0-1.8) H 10/03/21 10:51 Nucleated RBC % Not Reportable 10/03/21 10:51 Seg Neutrophils # 2.5 K/mm3 (1.8-7.7) 10/03/21 10:51 Seg Neutrophils # Man 2.7 K/mm3 (1.8-7.7) 10/03/21 10:51 Band Neutrophils # 0.0 K/mm3 10/03/21 10:51 Lymphocytes # (Manual) 0.6 K/mm3 (1.2-5.4) L 10/03/21 10:51 Abs React Lymphs (Man) 0.0 K/mm3 10/03/21 10:51 Monocytes # (Manual) 0.2 K/mm3 (0.0-0.8) 10/03/21 10:51 Eosinophils # (Manual) 0.1 K/mm3 (0.0-0.4) 10/03/21 10:51 Basophils # (Manual) 0.1 K/mm3 (0.0-0.1) 10/03/21 10:51 Metamyelocytes # 0.0 K/mm3 10/03/21 10:51 Myelocytes # 0.0 K/mm3 10/03/21 10:51 Promyelocytes # 0.0 K/mm3 10/03/21 10:51 Blast Cells # 0.0 K/mm3 10/03/21 10:51 WBC Morphology Not Reportable 10/03/21 10:51 Hypersegmented Neuts Not Reportable 10/03/21 10:51 Hyposegmented Neuts Not Reportable 10/03/21 10:51 Hypogranular Neuts Not Reportable 10/03/21 10:51 Smudge Cells Not Reportable 10/03/21 10:51 Toxic Granulation Not Reportable 10/03/21 10:51 Toxic Vacuolation Not Reportable 10/03/21 10:51 Dohle Bodies Not Reportable 10/03/21 10:51 Pelger-Huet Anomaly Not Reportable 10/03/21 10:51 Lennox Rods Not Reportable 10/03/21 10:51 Platelet Estimate Consistent w auto 10/03/21 10:51 Clumped Platelets Not Reportable 10/03/21 10:51 Plt Clumps, EDTA Not Reportable 10/03/21 10:51 Large Platelets Few 10/03/21 10:51 Giant Platelets Not Reportable 10/03/21 10:51 Platelet Satelliting Not Reportable 10/03/21 10:51 Plt Morphology Comment Not Reportable 10/03/21 10:51 RBC Morphology Not Reportable 10/03/21 10:51 Dimorphic RBCs Not Reportable 10/03/21 10:51 Polychromasia Few 10/03/21 10:51 Hypochromasia 1+ 10/03/21 10:51 Poikilocytosis Not Reportable 10/03/21 10:51 Anisocytosis 2+ 10/03/21 10:51 Microcytosis Not Reportable 10/03/21 10:51 Macrocytosis Not Reportable 10/03/21 10:51 Spherocytes Not Reportable 10/03/21 10:51 Pappenheimer Bodies Not Reportable 10/03/21 10:51 Sickle Cells Not Reportable 10/03/21 10:51 Target Cells Not Reportable 10/03/21 10:51 Tear Drop Cells Not Reportable 10/03/21 10:51 Ovalocytes Not Reportable 10/03/21 10:51 Helmet Cells Not Reportable 10/03/21 10:51 [place] Bodies Not Reportable 10/03/21 10:51 Shelly Rings Not Reportable 10/03/21 10:51 Johnson Cells Not Reportable 10/03/21 10:51 Bite Cells Not Reportable 10/03/21 10:51 Crenated Cell Not Reportable 10/03/21 10:51 Elliptocytes Not Reportable 10/03/21 10:51 Acanthocytes (Spur) Not Reportable 10/03/21 10:51 Rouleaux Not Reportable 10/03/21 10:51 Hemoglobin C Crystals Not Reportable 10/03/21 10:51 Schistocytes Not Reportable 10/03/21 10:51 Malaria parasites Not Reportable 10/03/21 10:51 Monroe Bodies Not Reportable 10/03/21 10:51 Hem Pathologist Commnt No 10/03/21 10:51 PT 16.6 Sec. (12.2-14.9) H 10/03/21 13:44 INR 1.21 (0.87-1.13) H 10/03/21 13:44 APTT 31.8 Sec. (24.2-36.6) 10/03/21 13:44 Thrombin Time 15.1 Sec. (15.1-19.6) 10/03/21 13:44 Sodium 140 mmol/L (137-145) 10/03/21 10:51 Potassium 3.8 mmol/L (3.6-5.0) 10/03/21 10:51 Chloride 108.1 mmol/L (98-107) H 10/03/21 10:51 Carbon Dioxide 20 mmol/L (22-30) L 10/03/21 10:51 Anion Gap 16 mmol/L 10/03/21 10:51 BUN 7 mg/dL (7-17) 10/03/21 10:51 Creatinine 0.7 mg/dL (0.6-1.2) 10/03/21 10:51 Estimated GFR > 60 ml/min 10/03/21 10:51 BUN/Creatinine Ratio 10 % 10/03/21 10:51 Glucose 91 mg/dL (65-100) 10/03/21 10:51 Calcium 8.2 mg/dL (8.4-10.2) L 10/03/21 10:51 Troponin T < 0.010 ng/mL (0.00-0.029) 10/03/21 17:53 Short CBC 10/03/21 Range/Units 10:51 WBC 3.8 L (4.5-11.0) K/mm3 Hgb 9.7 L (10.1-14.3) gm/dl Hct 31.2 (30.3-42.9) % Plt Count 273 (140-440) K/mm3 BMP 10/03/21 10:51 Sodium 140 Potassium 3.8 Chloride 108.1 H Carbon Dioxide 20 L BUN 7 Creatinine 0.7 Glucose 91 Calcium 8.2 L Cardiac Enzymes 1210/03/21 10/03/21 Range/Units 10:51 13:44 17:53 Troponin T < 0.010 < 0.010 < 0.010 (0.00-0.029) ng/mL - Imaging and Cardiology EKG: report reviewed (Sinus rhythm nonspecific ST-T wave changes) Imaging and Cardiology: Neck CTA There is no CTA evidence of significant stenosis involving the cervical carotid or vertebral arteries Head CTA No acute occlusions No CT evidence of large vessel occlusion amenable to endovascular therapy. Callejas/IV: Voiding Method Toilet Assessment and Plan Advance Directives: Yes (Full code) VTE prophylaxis?: Chemical Plan of care discussed with patient/family: Yes - Patient Problems (1) TIA (transient ischemic attack) Current Visit: Yes Status: Acute Plan to address problem: Complains of left-sided weakness and numbness Not consistent with acute cerebrovascular accident Functional component? Neurology consult requested Head CTA and neck CTA normal Highly unlikely of TIA and CVA Will defer to neurology (2) Acute chest pain Current Visit: Yes Status: Acute Plan to address problem: Chest pain work-up including troponins and Lexiscan (3) Seizure disorder Current Visit: Yes Status: Chronic Plan to address problem: Continue Keppra (4) History of pulmonary embolism Current Visit: Yes Status: Chronic Plan to address problem: On Xarelto (5) Morbid obesity due to excess calories Current Visit: Yes Status: Chronic Plan to address problem: Patient to be counseled about bariatric surgery and follow-up with Dr. Castillo as outpatient (6) DVT prophylaxis Current Visit: Yes Status: Acute Plan to address problem: On heparin and GI prophylaxis
[2021-10-04] MEDS: HEPARIN 5,000 UNIT/1 ML VIAL SUB-Q SCH (07:52)
[2021-10-04] MEDS ORDERED: FERROUS SULFATE 325 MG TAB PO SCH (08:00)
[2021-10-04] MEDS ORDERED: levETIRAcetam 500 MG TAB PO SCH (08:00)
[2021-10-04] MEDS ORDERED: RIVAROXABAN 20 MG TAB PO SCH (08:00)
[2021-10-04 09:07] LABS: Alanine Aminotransferase 11 units/L (7-56); Albumin 3.4 g/dL (3.9-5); Blood Urea Nitrogen 9 mg/dL (7-17); Calcium 8.1 mg/dL (8.4-10.2); Hemolysis Index 10
[2021-10-04 09:10] LABS: BUN/Creatinine Ratio 13
[2021-10-04 09:18] LABS: Hematocrit 30.6 % (30.3-42.9); Hemoglobin 9.4 gm/dl (10.1-14.3); Mean Corpuscular HGB Conc 31 % (30-34); Mean Corpuscular Volume 82 fl (79-97); Platelet Count 257 K/mm3 (140-440); Red Blood Count 3.75 M/mm3 (3.65-5.03)
[2021-10-04 09:36] LABS: Red Cell Distribution Width 26.6 % (13.2-15.2)
[2021-10-04 09:41] LABS: Eosinophils # (Auto) 0.1 K/mm3 (0.0-0.4); Monocytes # (Auto) 0.4 K/mm3 (0.0-0.8)
--- NOTE | 2021-10-04 09:55 | Progress Note ---
Assessment and Plan Assessment and plan: (1) TIA (transient ischemic attack) Current Visit: Yes Status: Acute Plan to address problem: Complains of left-sided weakness and numbness Not consistent with acute cerebrovascular accident Functional component? Neurology consult requested Head CTA and neck CTA normal Highly unlikely of TIA and CVA Will defer to neurology (2) Acute chest pain Current Visit: Yes Status: Acute Plan to address problem: Chest pain work-up including troponins and Lexiscan (3) Seizure disorder Current Visit: Yes Status: Chronic Plan to address problem: Continue Keppra (4) History of pulmonary embolism Current Visit: Yes Status: Chronic Plan to address problem: On Xarelto (5) Morbid obesity due to excess calories Current Visit: Yes Status: Chronic Plan to address problem: Patient to be counseled about bariatric surgery and follow-up with Dr. Castillo as outpatient (6) DVT prophylaxis Current Visit: Yes Status: Acute Plan to address problem: On heparin and GI prophylaxis Hospitalist Physical - Constitutional Vitals: Temp Pulse Resp BP Pulse Ox 98.4 F 66 18 107/57 97 10/04/21 03:39 10/04/21 03:39 10/04/21 03:39 10/04/21 03:39 10/04/21 03:39 General appearance: Present: no acute distress, well-nourished HEART Score - HEART Score EKG: Normal Age: < 45 Risk factors: 1-2 risk factors Troponin: Troponin T < 0.010 ng/mL (0.00-0.029) 10/03/21 17:53 Troponin: < normal limit Results - Labs CBC & Chem 7: 10/04/21 08:31 10/04/21 08:31 Labs: Laboratory Last Values WBC 3.8 K/mm3 (4.5-11.0) L 10/04/21 08:31 RBC 3.75 M/mm3 (3.65-5.03) 10/04/21 08:31 Hgb 9.4 gm/dl (10.1-14.3) L 10/04/21 08:31 Hct 30.6 % (30.3-42.9) 10/04/21 08:31 MCV 82 fl (79-97) 10/04/21 08:31 MCH 25 pg (28-32) L 10/04/21 08:31 MCHC 31 % (30-34) 10/04/21 08:31 RDW 26.6 % (13.2-15.2) H 10/04/21 08:31 Plt Count 257 K/mm3 (140-440) 10/04/21 08:31 [place] % (Auto) 10.0 % (0.0-7.3) H 10/04/21 08:31 Eos % (Auto) 2.0 % (0.0-4.3) 10/04/21 08:31 [place] # (Auto) 0.4 K/mm3 (0.0-0.8) 10/04/21 08:31 Eos # (Auto) 0.1 K/mm3 (0.0-0.4) 10/04/21 08:31 Baso # (Auto) 0.0 K/mm3 (0.0-0.1) 10/04/21 08:31 Add Manual Diff Complete 10/03/21 10:51 Total Counted 100 10/03/21 10:51 Seg Neutrophils % 60.7 % (40.0-70.0) 10/04/21 08:31 Seg Neuts % (Manual) 72.0 % (40.0-70.0) H 10/03/21 10:51 Lymphocytes % (Manual) 16.0 % (13.4-35.0) 10/03/21 10:51 Monocytes % (Manual) 6.0 % (0.0-7.3) 10/03/21 10:51 Eosinophils % (Manual) 3.0 % (0.0-4.3) 10/03/21 10:51 Basophils % (Manual) 3.0 % (0.0-1.8) H 10/03/21 10:51 Nucleated RBC % Not Reportable 10/03/21 10:51 Seg Neutrophils # 2.4 K/mm3 (1.8-7.7) 10/04/21 08:31 Seg Neutrophils # Man 2.7 K/mm3 (1.8-7.7) 10/03/21 10:51 Band Neutrophils # 0.0 K/mm3 10/03/21 10:51 Lymphocytes # (Manual) 0.6 K/mm3 (1.2-5.4) L 10/03/21 10:51 Abs React Lymphs (Man) 0.0 K/mm3 10/03/21 10:51 Monocytes # (Manual) 0.2 K/mm3 (0.0-0.8) 10/03/21 10:51 Eosinophils # (Manual) 0.1 K/mm3 (0.0-0.4) 10/03/21 10:51 Basophils # (Manual) 0.1 K/mm3 (0.0-0.1) 10/03/21 10:51 Metamyelocytes # 0.0 K/mm3 10/03/21 10:51 Myelocytes # 0.0 K/mm3 10/03/21 10:51 Promyelocytes # 0.0 K/mm3 10/03/21 10:51 Blast Cells # 0.0 K/mm3 10/03/21 10:51 WBC Morphology Not Reportable 10/03/21 10:51 Hypersegmented Neuts Not Reportable 10/03/21 10:51 Hyposegmented Neuts Not Reportable 10/03/21 10:51 Hypogranular Neuts Not Reportable 10/03/21 10:51 Smudge Cells Not Reportable 10/03/21 10:51 Toxic Granulation Not Reportable 10/03/21 10:51 Toxic Vacuolation Not Reportable 10/03/21 10:51 Dohle Bodies Not Reportable 10/03/21 10:51 Pelger-Huet Anomaly Not Reportable 10/03/21 10:51 Lennox Rods Not Reportable 10/03/21 10:51 Platelet Estimate Consistent w auto 10/03/21 10:51 Clumped Platelets Not Reportable 10/03/21 10:51 Plt Clumps, EDTA Not Reportable 10/03/21 10:51 Large Platelets Few 10/03/21 10:51 Giant Platelets Not Reportable 10/03/21 10:51 Platelet Satelliting Not Reportable 10/03/21 10:51 Plt Morphology Comment Not Reportable 10/03/21 10:51 RBC Morphology Not Reportable 10/03/21 10:51 Dimorphic RBCs Not Reportable 10/03/21 10:51 Polychromasia Few 10/03/21 10:51 Hypochromasia 1+ 10/03/21 10:51 Poikilocytosis Not Reportable 10/03/21 10:51 Anisocytosis 2+ 10/03/21 10:51 Microcytosis Not Reportable 10/03/21 10:51 Macrocytosis Not Reportable 10/03/21 10:51 Spherocytes Not Reportable 10/03/21 10:51 Pappenheimer Bodies Not Reportable 10/03/21 10:51 Sickle Cells Not Reportable 10/03/21 10:51 Target Cells Not Reportable 10/03/21 10:51 Tear Drop Cells Not Reportable 10/03/21 10:51 Ovalocytes Not Reportable 10/03/21 10:51 Helmet Cells Not Reportable 10/03/21 10:51 [place] Bodies Not Reportable 10/03/21 10:51 Sharon Rings Not Reportable 10/03/21 10:51 [place] Cells Not Reportable 10/03/21 10:51 Bite Cells Not Reportable 10/03/21 10:51 Crenated Cell Not Reportable 10/03/21 10:51 Elliptocytes Not Reportable 10/03/21 10:51 Acanthocytes (Spur) Not Reportable 10/03/21 10:51 Rouleaux Not Reportable 10/03/21 10:51 Hemoglobin C Crystals Not Reportable 10/03/21 10:51 Schistocytes Not Reportable 10/03/21 10:51 Malaria parasites Not Reportable 10/03/21 10:51 Monroe Bodies Not Reportable 10/03/21 10:51 Hem Pathologist Commnt No 10/03/21 10:51 PT 16.6 Sec. (12.2-14.9) H 10/03/21 13:44 INR 1.21 (0.87-1.13) H 10/03/21 13:44 APTT 31.8 Sec. (24.2-36.6) 10/03/21 13:44 Thrombin Time 15.1 Sec. (15.1-19.6) 10/03/21 13:44 Sodium 139 mmol/L (137-145) 10/04/21 08:31 Potassium 4.0 mmol/L (3.6-5.0) 10/04/21 08:31 Chloride 107.7 mmol/L (98-107) H 10/04/21 08:31 Carbon Dioxide 22 mmol/L (22-30) 10/04/21 08:31 Anion Gap 13 mmol/L 10/04/21 08:31 BUN 9 mg/dL (7-17) 10/04/21 08:31 Creatinine 0.7 mg/dL (0.6-1.2) 10/04/21 08:31 Estimated GFR > 60 ml/min 10/04/21 08:31 BUN/Creatinine Ratio 13 % 10/04/21 08:31 Glucose 97 mg/dL (65-100) 10/04/21 08:31 Calcium 8.1 mg/dL (8.4-10.2) L 10/04/21 08:31 Total Bilirubin < 0.20 mg/dL (0.1-1.2) 10/04/21 08:31 AST 12 units/L (5-40) 10/04/21 08:31 ALT 11 units/L (7-56) 10/04/21 08:31 Alkaline Phosphatase 67 units/L (35-129) 10/04/21 08:31 Troponin T < 0.010 ng/mL (0.00-0.029) 10/03/21 17:53 Total Protein 6.1 g/dL (6.3-8.2) L 10/04/21 08:31 Albumin 3.4 g/dL (3.9-5) L 10/04/21 08:31 Albumin/Globulin Ratio 1.3 % 10/04/21 08:31 Callejas/IV: Voiding Method Toilet Active Medications - Current Medications Current Medications: Generic Name Dose Route Start Last Admin Trade Name Freq PRN Reason Stop Dose Admin Acetaminophen 650 mg 10/03/21 15:08 Acetaminophen 325 Mg Tab PO Q4H PRN Pain MILD(1-3)/Fever >100.5/NAVA Carbamazepine 200 mg 10/03/21 23:45 10/04/21 09:08 Carbamazepine 200 Mg Tab PO 200 mg Q8H GEORGIE Administration Ferrous Sulfate 325 mg 10/04/21 08:00 10/04/21 09:07 Ferrous Sulfate 325 Mg Tab PO 325 mg TID GEORGIE Administration Levetiracetam 500 mg 10/04/21 08:00 10/04/21 09:08 Levetiracetam 500 Mg Tab PO 500 mg TID GEORGIE Administration Metoclopramide HCl 10 mg 10/03/21 15:08 Metoclopramide 10 Mg/2 Ml Inj IV Q6H PRN Nausea And Vomiting Ondansetron HCl 4 mg 10/03/21 15:08 Ondansetron 4 Mg/2 Ml Inj IV Q8H PRN Nausea And Vomiting Oxycodone/Acetaminophen 1 tab 10/03/21 15:08 Oxycodone /Acetaminophen 5-325mg Tab PO Q6H PRN Pain, Moderate (4-6) Promethazine HCl 25 mg 10/03/21 15:08 Promethazine 25 Mg Rect Supp VT Q6H PRN N/V IF NPO AND NO IV ACCESS Regadenoson 0.4 mg 10/04/21 10:00 Regadenoson 0.4 Mg/5 Ml Inj IV 10/04/21 10:01 ONCE ONE Rivaroxaban 20 mg 10/04/21 08:00 10/04/21 09:08 Rivaroxaban 20 Mg Tab PO 20 mg QDDIAB GEORGIE Administration Sodium Chloride 10 ml 10/03/21 22:00 10/04/21 09:08 Sodium Chloride 0.9% 10 Ml Flush Syringe IV 10 ml BID GEORGIE Administration Sodium Chloride 10 ml 10/03/21 15:08 Sodium Chloride 0.9% 10 Ml Flush Syringe IV PRN PRN LINE FLUSH Tramadol HCl 50 mg 10/03/21 23:01 Tramadol 50 Mg Tab PO Q6H PRN Pain, Moderate (4-6)
[2021-10-04] MEDS ORDERED: REGADENOSON 0.4 MG/5 ML INJ IV ONE (10:00)
--- NOTE | 2021-10-04 12:10 | Nuclear Medicine Report ---
APPROVED REPORT Exam: Nuclear Stress Test Indication: [facility] pain [facility] Ht: 5 ft 4 in Wt: 291 lbs BSA: 2.29 m2 HR: 86 bpmBP: 133/80 mmHgBMI: 49.94 Rhythm: NSR Stress Test Details Stress Test: Pharmacologic stress testing performed using 0.4 mg of regadenoson per 5 mL given IV over 10 seconds. Reason for pharmacologic stress test: physical limitation. HR Resting HR: 86 bpm Max HR Achieved: 115 bpm Max Heart Rate (APMHR): 182 bpm Target HR (85% APMHR): 154 bpm % of APMHR: 63 Recovery HR: 104 bpm BP Resting BP: 133/80 mmHg Max BP: 147/85 mmHg Recovery BP: 129/83 mmHg ECG Resting ECG: Sinus Rhythm Stress ECG: Sinus Rhythm ST Change: None Arrhythmia: None Recovery ECG: Sinus Rhythm Recovery ST Change: None Recovery Arrhythmia: None Clinical Reason for Termination: Completed protocol Stress Symptoms: None NM EXAM: Myocardial Perfusion REST/STRESS Imaging Protocol: Rest Tc-99m/Stress Tc-99m 1 day Resting Data Rest SPECT myocardial perfusion imaging was performed in supine position 45 minutes following the intravenous injection of 10 mCi of Tc-99m Myoview. Time of rest injection: 0900 Pharmacologic Stress Pharmacologic stress test was performed by injecting Regadenoson 0.4 mg IV push followed by the intravenous injection of 28 mCi of Tc-99m Myoview. Time of stress injection: 1100 Gated Stress SPECT was performed 30 minutes after stress injection. The images were gated to evaluate regional wall motion and calculate left ventricular ejection fraction. Study Quality Study: excellent Lung Uptake: Normal Study Data TID = 0.95. Perfusion Wall Motion The rest and stress images show normal left ventricular wall motion. Nuclear Conclusion ECG Findings: negative for ischemia Clinical Findings: negative for ischemia Nuclear Findings: positive for ischemia Exercise Capacity: not assessed Left Ventricular Function: normal Risk Study: moderate Abnormal study. Scintigraphic evidence for moderte inferolateral ischemia noted.
[2021-10-04 12:56] VITALS: BP 123/74
[2021-10-04] MEDS ORDERED: NITROGLYCERIN 0.4 MG TAB SUBL SL PRN (13:14)
--- NOTE | 2021-10-04 13:43 | Consultation ---
History of Present Illness Consult date: 10/04/21 Requesting physician: VIKAS ESCOTO Consult reason: other (abnormal stress) History of present illness: Patient is a 28-year-old female with a past medical history of partial seizures and multiple pulmonary embolisms anticoagulated on Xarelto who presented to the ED with a complaint of chest pain x2 days prior to admission. Patient reports that she woke up in the middle of the night with left-sided chest pain that radiated to her left shoulder which she associated with her chronic nausea. Patient reports she woke up the next morning with the pain to intensify. She reports the pain is like a pressure and states it was 8 out of 10 in intensity. She reports pain was worsened with palpation and with exertion pain is relieved by rest. She denies shortness of breath, dyspnea on exertion, palpitations or diaphoresis. Of note patient had a positive stress test this a.m. patient is previously known to our practice. Cardiology is consulted for abnormal stress test. Past History Past Medical History: pulmonary embolism, seizures Past Surgical History: No surgical history Social history: no significant social history Family history: CAD, stroke, other (DVTs/PEs) Medications and Allergies Allergies Allergy/AdvReac Type Severity Reaction Status Date / Time amoxicillin [Amoxicillin] Allergy Hives Verified 09/23/21 14:10 Home Medications Medication Instructions Recorded Confirmed Last Taken Type carBAMazepine [TEGretol] 200 mg PO TID 12/06/14 10/04/21 10/03/21 08:00 History Ferrous Sulfate [Iron 325 MG] 325 mg PO TID 08/10/21 10/03/21 10/03/21 08:00 History levETIRAcetam [Keppra TAB] 500 mg PO TID 08/10/21 10/03/21 10/03/21 08:00 History traMADoL [Ultram 50 MG tab] 50 mg PO Q6HR PRN #14 tablet 09/23/21 10/04/21 10/01/21 Rx Rivaroxaban [Xarelto] 20 mg PO QDAY 10/03/21 10/03/21 10/02/21 22:00 History AtorvaSTATin [Lipitor] 40 mg PO QHS #30 tab 10/04/21 Unknown Rx Butalb/Acetamin/Caff 50-325-40 1 tab PO BID PRN 10/04/21 10/04/21 10/01/21 History [Fioricet 50-325-40] Cyanocobalamin [Vitamin B-12] 1,000 mcg PO DAILY 10/04/21 10/04/21 10/03/21 History Folic Acid 1 mg PO QDAY 10/04/21 10/04/21 10/03/21 History ISOSORBIDE MONOnitrate [Imdur ER] 30 mg PO QDAY #30 tablet 10/04/21 Unknown Rx Metoprolol [Lopressor TAB] 12.5 mg PO BID #60 tablet 10/04/21 Unknown Rx Nitroglycerin [Nitrostat] 0.4 mg SL .Q5MIN PRN #30 tablet 10/04/21 Unknown Rx Ondansetron [Zofran ODT TAB] 4 mg PO Q12H PRN 10/04/21 10/04/21 10/02/21 18:00 History medroxyPROGESTERone ACETATE 10 mg PO BID 10/04/21 10/04/21 10/03/21 History [Medroxyprogesterone Acetate] Active Meds: Active Medications Acetaminophen (Acetaminophen 325 Mg Tab) 650 mg PO Q4H PRN PRN Reason: Pain MILD(1-3)/Fever >100.5/NAVA Carbamazepine (Carbamazepine 200 Mg Tab) 200 mg PO Q8H [facility] Last Admin: 10/04/21 09:08 Dose: 200 mg Documented by: Ferrous Sulfate (Ferrous Sulfate 325 Mg Tab) 325 mg PO TID [facility] Last Admin: 10/04/21 09:07 Dose: 325 mg Documented by: Isosorbide Mononitrate (Isosorbide Mononitrate Er 30 Mg Tab) 30 mg PO QDAY [facility] Levetiracetam (Levetiracetam 500 Mg Tab) 500 mg PO TID [facility] Last Admin: 10/04/21 09:08 Dose: 500 mg Documented by: Metoclopramide HCl (Metoclopramide 10 Mg/2 Ml Inj) 10 mg IV Q6H PRN PRN Reason: Nausea And Vomiting Metoprolol Tartrate (Metoprolol Tartrate 25 Mg Tab) 12.5 mg PO BID [facility] Nitroglycerin (Nitroglycerin 0.4 Mg Tab Subl) 0.4 mg SL .Q5MIN PRN PRN Reason: Chest Pain Ondansetron HCl (Ondansetron 4 Mg/2 Ml Inj) 4 mg IV Q8H PRN PRN Reason: Nausea And Vomiting Oxycodone/Acetaminophen (Oxycodone /Acetaminophen 5-325mg Tab) 1 tab PO Q6H PRN PRN Reason: Pain, Moderate (4-6) Promethazine HCl (Promethazine 25 Mg Rect Supp) 25 mg HI Q6H PRN PRN Reason: N/V IF NPO AND NO IV ACCESS Rivaroxaban (Rivaroxaban 20 Mg Tab) 20 mg PO QDDIAB [facility] Last Admin: 10/04/21 09:08 Dose: 20 mg Documented by: Sodium Chloride (Sodium Chloride 0.9% 10 Ml Flush Syringe) 10 ml IV BID [facility] Last Admin: 10/04/21 09:08 Dose: 10 ml Documented by: Sodium Chloride (Sodium Chloride 0.9% 10 Ml Flush Syringe) 10 ml IV PRN PRN PRN Reason: LINE FLUSH Tramadol HCl (Tramadol 50 Mg Tab) 50 mg PO Q6H PRN PRN Reason: Pain, Moderate (4-6) Review of Systems Constitutional: no weight loss, no weight gain, no fever, no chills, no sweats Ears, nose, mouth and throat: no nasal congestion, no nasal discharge, no sinus pressure Cardiovascular: chest pain, no orthopnea, no palpitations, no rapid/irregular heart beat, no shortness of breath, no dyspnea on exertion Respiratory: no cough, no cough with sputum, no shortness of breath, no dyspnea on exertion Gastrointestinal: nausea, no abdominal pain, no vomiting, no diarrhea Musculoskeletal: no neck stiffness, no neck pain Integumentary: no rash, no pruritis, no redness Neurological: no head injury, no transient paralysis, no paralysis Psychiatric: no anxiety, no memory loss Endocrine: no cold intolerance, no heat intolerance Hematologic/Lymphatic: no easy bruising, no easy bleeding Physical Examination Vital Signs Temp Pulse Resp BP Pulse Ox 98 F 68 18 152/68 96 10/03/21 10:32 10/03/21 10:32 10/03/21 10:32 10/03/21 10:32 10/03/21 10:32 General appearance: no acute distress HEENT: Positive: PERRL Neck: Positive: trachea midline Cardiac: Positive: Reg Rate and Rhythm Lungs: Positive: Decreased Breath Sounds Neuro: Positive: Grossly Intact Abdomen: Positive: Soft Skin: Negative: Rash, Suspicious Lesions, Ulceration Extremities: Present: upper extr. pulses. Absent: edema Results 10/04/21 08:31 10/04/21 08:31 Cardiac Enzymes 10/04/21 Range/Units 08:31 AST 12 (5-40) units/L Coagulation 10/03/21 Range/Units 13:44 PT 16.6 H (12.2-14.9) Sec. INR 1.21 H (0.87-1.13) APTT 31.8 (24.2-36.6) Sec. CBC 10/04/21 Range/Units 08:31 WBC 3.8 L (4.5-11.0) K/mm3 RBC 3.75 (3.65-5.03) M/mm3 Hgb 9.4 L (10.1-14.3) gm/dl Hct 30.6 (30.3-42.9) % Plt Count 257 (140-440) K/mm3 [place] # (Auto) 0.4 (0.0-0.8) K/mm3 Eos # (Auto) 0.1 (0.0-0.4) K/mm3 Baso # (Auto) 0.0 (0.0-0.1) K/mm3 Comprehensive Metabolic Panel 10/04/21 Range/Units 08:31 Sodium 139 (137-145) mmol/L Potassium 4.0 (3.6-5.0) mmol/L Chloride 107.7 H (98-107) mmol/L Carbon Dioxide 22 (22-30) mmol/L BUN 9 (7-17) mg/dL Creatinine 0.7 (0.6-1.2) mg/dL Glucose 97 (65-100) mg/dL Calcium 8.1 L (8.4-10.2) mg/dL AST 12 (5-40) units/L ALT 11 (7-56) units/L Alkaline Phosphatase 67 (35-129) units/L Total Protein 6.1 L (6.3-8.2) g/dL Albumin 3.4 L (3.9-5) g/dL - Imaging and Cardiology Echo: report reviewed EKG interpretations - Telemetry EKG Rhythm: Sinus Bradycardia - EKG Sinus rhythms and dysrhythmias: sinus rhythm Assessment and Plan Patient is a 28-year-old female with a past medical history of partial seizures and multiple pulmonary embolisms anticoagulated on Xarelto who presented to the ED with a complaint of chest pain x2 days Chest pain Partial seizures Ho/o PE- on xarelto Morbid obesity Echo 10/03/2021 EF 55 to 60% left ventricle is normal in size left ventricle diastolic function is normal, right ventricle is mildly dilated right ventricle systolic function is normal Lexiscan stress test 10/04/2021-evidence for moderate inferior lateral ischemia Plan: EKG shows sinus bradycardia rate 55 no acute ischemic changes. Troponins negative x3. AMI ruled out Initiate Imdur 30 mg p.o. daily, metoprolol 12.5 mg p.o. twice daily and nitroglycerin sublingual as needed Will have patient follow-up as an outpatient for cardiac catheterization. Unable to do tomorrow due to patient taking her Xarelto. Expressed importance of patient compliance with following up as an outpatient. Patient acknowledged u nderstanding and agreement Patient cardiac status stable for discharge Patient has a follow-up appointment with Dr. Odell, [facility] contact center specialist, on 10/15/2021 at 14:45pm at our [place] location. Phone [phone] Patient seen in conjunction with Dr. Odell who agrees with this plan of care - Patient Problems (1) Seizure Current Visit: No Status: Acute (2) Multiple pulmonary emboli Current Visit: No Status: Acute (3) Acute chest pain Current Visit: Yes Status: Acute (4) Morbid obesity due to excess calories Current Visit: Yes Status: Chronic
--- NOTE | 2021-10-04 13:45 | Discharge Summary ---
Providers - Providers Date of Admission: 10/03/21 15:09 Date of discharge: 10/04/21 Attending physician: VIKAS ESCOTO 10/04/21 12:27 Consult to Physician [CONS] Routine Comment: Consulting Provider: KARINA SCHUMACHER Physician Instructions: Reason For Exam: Abnormal stress test Primary care physician: JAVASCRIPT SOFTWARE ENGINEER Hospitalization Reason for admission: Chest pain/neuro symptoms Condition: Serious Pertinent studies: Echo 10/03/2021 EF 55 to 60% left ventricle is normal in size left ventricle di astolic function is normal, right ventricle is mildly dilated right ventricle systolic function is normal Lexiscan stress test 10/04/2021-evidence for moderate inferior lateral ischemia CT head without contrast; no acute abnormality noted CTA neck; no CT evidence of significant stenosis involving the cervical carotid or vertebral arteries CTA head; no evidence of large vessel occlusion Procedures: Lexiscan stress test 10/04/2021-evidence for moderate inferior lateral ischemia Hospital course: 1) TIA (transient ischemic attack) Current Visit: Yes Status: Acute Plan to address problem: Complains of left-sided weakness and numbness Not consistent with acute cerebrovascular accident Functional component? Neurology consult requested Head CTA and neck CTA normal Highly unlikely of TIA and CVA Will defer to neurology (2) Acute chest pain Current Visit: Yes Status: Acute Plan to address problem: Chest pain work-up including troponins and Lexiscan (3) Seizure disorder Current Visit: Yes Status: Chronic Plan to address problem: Continue Keppra (4) History of pulmonary embolism Current Visit: Yes Status: Chronic Plan to address problem: On Xarelto (5) Morbid obesity due to excess calories Current Visit: Yes Status: Chronic Plan to address problem: Patient to be counseled about bariatric surgery and follow-up with Dr. Castillo as outpatient --/ Disposition: HOME / SELF CARE / HOMELESS Final Discharge Diagnosis (Prints w/discharge instructions): Chest pain improved. abnormal stress test/medical management. History of PE and DVT. History of seizure disorder. History of migraine headaches. Morbid obesity BMI 53.2 Time spent for discharge: 40 minutes Core Measure Documentation - Palliative Care Palliative Care/ Comfort Measures: Not Applicable - Core Measures Any of the following diagnoses?: none - VTE Discharge Requirements Deep Vein Thrombosis/Pulmonary Embolism Present on Admission: Yes Has pt received <5 days of overlap therapy or INR<2.0: No (History of DVT and PE on Xarelto) Anticoagulant overlap therapy prescribed at discharge: No Contraindication No Overlap Therapy order at DC: Medical Contraindication (Patient is on Xarelto) Exam - Constitutional Vitals: Temp Pulse Resp BP Pulse Ox 98.5 F 73 18 123/74 100 10/04/21 12:28 10/04/21 12:28 10/04/21 12:28 10/04/21 12:28 10/04/21 12:28 General appearance: Present: no acute distress, well-nourished - EENT Eyes: Present: PERRL, EOM intact - Neck Neck: Present: supple, normal ROM - Respiratory Respiratory effort: normal Respiratory: bilateral: diminished, negative: rales, rhonchi, wheezing - Cardiovascular Rhythm: regular Heart Sounds: Present: S1 & S2 - Extremities Extremities: no ischemia, No edema - Abdominal General gastrointestinal: Present: soft, non-tender, non-distended, normal bowel sounds - Integumentary Integumentary: Present: clear, warm - Musculoskeletal Musculoskeletal: strength equal bilaterally - Psychiatric Psychiatric: appropriate mood/affect, cooperative - Neurologic Neurologic: CNII-XII intact, moves all extremities Plan Activity: no restrictions Diet: other (Cardiac diet) Additional Instructions: If you have worsening symptoms contact MD or go to the emergency room as needed. Neuro symptoms completely resolved, advised see private neurologist for further evaluation management as needed. Advised to follow with private cooperative education coordinator per schedule Follow up with: PRIMARY MD JACLYN [Primary Care Provider] - 3-5 Days KARINA SCHUMACHER MD [Staff Physician] - 7 Days JAMES LAU MD [Staff Physician] - 7 Days Prescriptions: Aspirin EC [Halfprin EC] 81 mg PO QDAY #30 tablet. ISOSORBIDE MONOnitrate [Imdur ER] 30 mg PO QDAY #30 tablet AtorvaSTATin [Lipitor] 40 mg PO QHS #30 tab Metoprolol [Lopressor TAB] 12.5 mg PO BID #60 tablet Nitroglycerin [Nitrostat] 0.4 mg SL .Q5MIN PRN #30 tablet PRN Reason: Chest Pain
[2021-10-04 17:29] LABS: Anisocytosis 2+; Hypochromasia 1+; Total Cells Counted 100
[2021-10-04 17:30] LABS: Large Platelets Few; Platelet Estimate Consistent w Auto
[2021-10-04] MEDS ORDERED: METOPROLOL TARTRATE 25 MG TAB PO SCH (22:00)
--- NOTE | 2021-10-05 12:04 | Electrocardiograph Report ---
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 Electronically Signed On 10-05-2021 12:03:28 EST by Ge Odell
== END 2021-10-04 16:00 | disposition home or self-care (01) ==
LOC: ED 10:28 → 4A 15:09
PROVIDERS: ADMIT Internal Medicine; ATTEND Internal Medicine
DX: G45.9 Transient cerebral ischemic attack, unspecified (principal); R07.89 Other chest pain; G40.909 Epilepsy, unspecified, not intractable, without status epilepticus; E66.01 Morbid (severe) obesity due to excess calories; D25.9 Leiomyoma of uterus, unspecified; M62.81 Muscle weakness (generalized); R29.701 NIHSS score 1; Z68.43 Body mass index [BMI] 50.0-59.9, adult; Z86.711 Personal history of pulmonary embolism
CPT/HCPCS: 36415; 70450; 70496; 70498; 71045; 78452; 80048; 80053; 84484; 85025; 85610; 85670; 85730; 93005; 93017; 93306; 96372; 96374; 99285; A9502; G0378; J1885; J2405; J2785; Q9967; 85007

== ENCOUNTER 2021-12-22 09:51 | Emergency (ER) | payer OTHER ==
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
[2021-12-22 13:17] VITALS: BP 140/85
== END 2021-12-22 13:17 | disposition home or self-care (01) ==
LOC: ED 09:51
DX: M25.562 Pain in left knee (principal); Z86.73 Personal history of transient ischemic attack (TIA), and cerebral infarction without residual deficits; E66.01 Morbid (severe) obesity due to excess calories; M17.12 Unilateral primary osteoarthritis, left knee; I10 Essential (primary) hypertension; G43.909 Migraine, unspecified, not intractable, without status migrainosus; R56.9 Unspecified convulsions; V89.2XXA Person injured in unspecified motor-vehicle accident, traffic, initial encounter; Y93.89 Activity, other specified; Y92.89 Other specified places as the place of occurrence of the external cause; Y99.8 Other external cause status
CPT/HCPCS: 99283

== ENCOUNTER 2021-12-28 08:34 | Outpatient (CLI) | payer OTHER ==
--- NOTE | 2021-12-28 12:06 | Cat Scan Report ---
CTA CHEST WITH CONTRAST INDICATION : previous PE Compare to prior- CTA CHEST 08/09/2021 OMNI 350 100ML *BEST SCAN POSSIBLE DU E TO IV ACCESS*. TECHNIQUE: Axial imaging performed through the chest, with contrast bolus timing set to maximize opa cification of the pulmonary arteries. Sagittal and coronal reformatted images. 3-plane MIP reformatte d images were obtained. All CT scans at this location are performed using CT dose reduction for ALAR A by means of automated exposure control. Omnipaque 350 100 mL of intravenous contrast administered. COMPARISON: 08/09/2021 FINDINGS: Bolus: Contrast bolus timing is adequate. PTE: Previously described interlobar segmental artery pulmonary emboli in the right lung and segment al artery emboli in the lower lobes are no longer seen. No evidence for pulmonary embolus on today's exam. Mediastinum: Heart and great vessels appear normal. No pathologic mediastinal adenopathy. Coronary artery calcifications: None. Lungs: Lungs are clear. Bones: Degenerative changes in the spine with nothing acute. Upper abdomen: Limited imaging of the upper abdomen shows nothing acute. IMPRESSION: No pulmonary emboli are identified on today's exam. Lungs clear. Signer Name: Dhiraj Brown Jr, MD Signed: 12/28/2021 12:02 PM Workstation Name: [id number]
== END 2021-12-28 08:35 | disposition home or self-care (01) ==
LOC: CT 08:34
PROVIDERS: ATTEND Internal Medicine Hematology & Oncology
DX: I26.94 Multiple subsegmental thrombotic pulmonary emboli without acute cor pulmonale (principal)
CPT/HCPCS: 71275; Q9967

== ENCOUNTER 2022-05-30 21:32 | Emergency (ER) | payer OTHER ==
[2022-05-30 22:50] VITALS: BP 119/49
--- NOTE | 2022-05-30 23:24 | XRay Report ---
CHEST 1 VIEW INDICATION / CLINICAL INFORMATION: Chest Pain. COMPARISON: Chest x-ray 10/03/2021 FINDINGS: SUPPORT DEVICES: None. HEART / MEDIASTINUM: Heart size is within normal limits. Mediastinal contour demonstrates no signific ant abnormality. LUNGS / PLEURA: Lungs are clear for degree of inspiration and technique utilized. BONES: No significant osseous abnormality. ADDITIONAL FINDINGS: No significant additional findings. IMPRESSION: 1. No active cardiopulmonary disease. Signer Name: Luis Eduardo Braxton II, MD Signed: 05/30/2022 11:19 PM Workstation Name: [id number]
[2022-05-30 23:46] LABS: Basophils # (Auto) 0.1 K/mm3 (0.0-0.1); Basophils % (Auto) 0.9 % (0.0-1.8); Eosinophils # (Auto) 0.1 K/mm3 (0.0-0.4); Hematocrit 31.8 % (30.3-42.9); Hemoglobin 10.3 gm/dl (10.1-14.3); Lymphocytes # (Auto) 1.7 K/mm3 (1.2-5.4); Lymphocytes % (Auto) 27.7 % (13.4-35.0); Mean Corpuscular HGB Conc 32 % (30-34); Mean Corpuscular Volume 86 fl (79-97); Monocytes # (Auto) 0.7 K/mm3 (0.0-0.8); Monocytes % (Auto) 10.8 % (0.0-7.3); Platelet Count 286 K/mm3 (140-440); Red Blood Count 3.68 M/mm3 (3.65-5.03); Red Cell Distribution Width 17.4 % (13.2-15.2)
[2022-05-31 00:08] LABS: Alanine Aminotransferase 8 units/L (7-56); Albumin 3.9 g/dL (3.9-5); BUN/Creatinine Ratio 10; Blood Urea Nitrogen 8 mg/dL (7-17); Calcium 8.8 mg/dL (8.4-10.2); Hemolysis Index 13
--- NOTE | 2022-05-31 11:18 | Electrocardiograph Report ---
[facility] Test Date: 2022-05-30 Test Time: 22:58:28 Pat Name: JANET NATALIIA Department: Room: Gender: F [employer]: TECH : 1985 Requested By: ED DOC Order Number: [id number] Reading MD: Ari Mills Measurements Intervals [place] Rate: 70 P: 4 HI: 181 QRS: 36 QRSD: 89 T: 48 QT: 406 QTc: 438 Interpretive Statements Sinus rhythm Low voltage, precordial leads Compared to ECG 10/03/2021 10:41:40 Low QRS voltage now present Sinus bradycardia no longer present Electronically Signed On 05-31-2022 11:18:18 EDT by Ari Mills
== END 2022-06-01 23:02 | disposition left against medical advice (07) ==
LOC: ED 21:32
DX: R07.9 Chest pain, unspecified (principal); Z53.21 Procedure and treatment not carried out due to patient leaving prior to being seen by health care provider
CPT/HCPCS: 36415; 71045; 80053; 84484; 85025; 85379; 93005

== ENCOUNTER 2022-06-27 09:54 | Outpatient (CLI) | payer OTHER ==
[2022-06-27 10:41] LABS: Blood Urea Nitrogen 7 mg/dL (7-17)
--- NOTE | 2022-06-27 15:24 | Cat Scan Report ---
CTA CHEST WITH CONTRAST INDICATION / CLINICAL INFORMATION: Z86.711 PERSONAL HX OF PULMONARY EMBOLISM. TECHNIQUE: Axial CT images were obtained through the chest after injection of 100 cc of Omnipaque 350 IV contrast. 3 plane MIP and/or 3D reconstructions were produced. All CT scans at this location are performed using CT dose reduction for ALARA by means of automated exposure control. COMPARISON: 12/28/2021 FINDINGS: PULMONARY EMBOLUS: None. THORACIC AORTA: No significant abnormality. HEART: No significant abnormality. CORONARY ARTERY CALCIFICATION: Absent -- None. MEDIASTINUM / KHUSHI: No significant abnormality. PLEURA: No pleural effusion. No pneumothorax. LUNGS: No acute air space or interstitial disease. ADDITIONAL FINDINGS: None. UPPER ABDOMEN: No acute findings. SKELETAL STRUCTURES: No significant osseous abnormality. IMPRESSION: 1. No CT evidence for pulmonary embolism. 2. No acute findings. Signer Name: Dhiraj Brown Jr, MD Signed: 06/27/2022 3:20 PM Workstation Name: [id number]
== END 2022-06-27 09:55 | disposition home or self-care (01) ==
LOC: CT 09:54
PROVIDERS: ATTEND Internal Medicine Hematology & Oncology
DX: I26.94 Multiple subsegmental thrombotic pulmonary emboli without acute cor pulmonale (principal); Z86.711 Personal history of pulmonary embolism
CPT/HCPCS: 36415; 71275; 82565; 84520; Q9967